=== PATIENT | male | born 1960 | race Caucasian/White ===

== ENCOUNTER 2016-10-22 08:02 | Day surgery (SDC) | payer OTHER ==
[2016-10-21 15:04] VITALS: BMI 28.5
[2016-10-22] MEDS ORDERED: PROPOFOL 20 ML ONE ×2 (08:36)
[2016-10-22 09:39] VITALS: TEMP 97.7
[2016-10-22 10:43] VITALS: BP 104/60; PULSE 54
--- NOTE | 2016-10-23 13:56 | PATH ---
Surgical Pathology Report Patient Name: LEATHA MAI [facility]. Rec. #: [id number] /Age/Gender: 1960 (Age: 56) / M Account: [id number] Location: U-ENDOSCOPY Taken: 10/22/2016 Received: 10/22/2016 Reported: 10/23/2016 Physicians: Bi Tracy M.D. Specimen(s) Received A: BX SIGMOID POLYPS B: BX RIGHT COLON POLYPS C: DESCENDING COLON POLYP Clinical History History of colon polyp Polyps, diverticulosis Final Diagnosis A. COLON, SIGMOID, BIOPSY: TUBULAR ADENOMA. B. COLON, RIGHT, BIOPSY: COLONIC MUCOSA WITH NO PATHOLOGIC CHANGES. NO ADENOMATOUS OR HYPERPLASTIC CHANGES IDENTIFIED. C. COLON, DESCENDING, BIOPSY: TUBULAR ADENOMA. Electronically Signed Dalton Mercado M.D. Gross Description A. Received in formalin, labeled "biopsy sigmoid polyps" are 5 carey, irregular portions of soft tissue ranging from 0.2-0.3 cm. in greatest dimension. The specimens are submitted in toto in one cassette. B. Received in formalin, labeled "biopsy right colon polyps" are 5 carey, irregular portions of soft tissue ranging from 0.1-0.3 cm. in greatest dimension. The specimens are submitted in toto in one cassette. C. Received in formalin, labeled "descending colon polyp" are 6 carey, irregular portions of soft tissue ranging from 0.1-0.3 cm. in greatest dimension. The specimens are submitted in toto in one cassette. DL/10/22/2016 saudi/10/22/2016
== END 2016-10-22 10:42 | disposition home or self-care (01) ==
LOC: JASU-ENDO 08:02
PROVIDERS: ATTEND Internal Medicine Gastroenterology
PROC: 0DBK8ZX Excision of Ascending Colon, Via Natural or Artificial Opening Endoscopic, Diagnostic (ICD-10-PCS; 2016-10-22)
PROC: 0DBN8ZX Excision of Sigmoid Colon, Via Natural or Artificial Opening Endoscopic, Diagnostic (ICD-10-PCS; 2016-10-22)
PROC: 0DBM8ZX Excision of Descending Colon, Via Natural or Artificial Opening Endoscopic, Diagnostic (ICD-10-PCS; principal; 2016-10-22 09:00)
DX: Z86.010 Personal history of colon polyps (principal); D12.4 Benign neoplasm of descending colon; D12.2 Benign neoplasm of ascending colon; D12.5 Benign neoplasm of sigmoid colon; K57.30 Diverticulosis of large intestine without perforation or abscess without bleeding
CPT/HCPCS: 88305-TC

== ENCOUNTER 2017-04-08 07:35 | Emergency (ER) | payer OTHER ==
[2017-04-08 07:46] VITALS: TEMP 97.8; BMI 29.0
[2017-04-08] MEDS ORDERED: diphenhydrAMINE HCL 25 MG CAPSULE (FP) PO ONE ×2 (08:47→09:20)
--- NOTE | 2017-04-08 08:57 | PDOC ---
History of Present Illness - General Chief Complaint: Pain Stated Complaint: SWELLING HAND, FOOT Time Seen by Provider: 04/08/17 08:34 History Source: Patient Exam Limitations: No Limitations - History of Present Illness Initial Comments: 04/08/17 09:13 56-year-old male presents the emergency room with complaints of generalized pruritus and arthralgias since yesterday. Patient also states yesterday had an episode of feeling as if his throat is closing and lost his voice presently. Patient states similar episodes over the past 5 years occurring around the same time each year. Patient states went to his PCP for the last 4 episodes who stated was likely due to an allergy. Patient denies any change in diet, medication use, recent travel, or change in topicals. Patient currently denies difficulty breathing, wheezing, chest pain, fever or chills. Patient states history of hypertension and dyslipidemia but recently was told not to take them by his pcp due to low bp and denies recent change in medication. Timing/Duration: 24 hours, constant Severity: moderate Associated Symptoms: denies: rash, shortness of breath, weakness Past History - Travel Traveled outside of the country in the last 30 days: No - Past Medical History Allergies/Adverse Reactions: Allergies Allergy/AdvReac Type Severity Reaction Status Date / Time No Known Allergies Allergy Verified 04/08/17 07:44 Home Medications: Ambulatory Orders Atorvastatin Ca [Lipitor] 10 mg PO HS 09/01/14 Metformin HCl [Glucophage -] 500 mg PO DAILY 09/01/14 Aspirin [Aspirin EC] 81 mg PO DAILY #0 09/15/14 Pantoprazole Sodium [Protonix] 40 mg PO DAILY #30 tablet. 04/08/17 Anemia: No Asthma: No Cancer: No Cardiac Disorders: No CVA: No COPD: No CHF: No Dementia: No Diabetes: Yes (NIDDM) GI Disorders: Yes (DIVERTICULOSIS, COLON POLYP, GERD) Disorders: No HTN: No Hypercholesterolemia: Yes Liver Disease: No Seizures: No Thyroid Disease: No - Surgical History Abdominal Surgery: No Appendectomy: No Cardiac Surgery: No Cholecystectomy: No Lung Surgery: Yes (KNIFE WOUND TO RT CHEST IN 1989) Neurologic Surgery: No Orthopedic Surgery: Yes (3 LT LEG SURGERIES WITH MUSCLE AND SKIN GRAFTING) - Family Disease History Family Disease History: Diabetes: Mother - Suicide/Smoking/Psychosocial Hx Smoking History: Never smoked Information on smoking cessation initiated: No Hx Alcohol Use: No Drug/Substance Use Hx: No Substance Use Type: None Hx Substance Use Treatment: No Patient Lives Alone: No Lives with/in: spouse/SO Review of Systems - Review of Systems Able to Perform ROS?: Yes Constitutional: No: Symptoms Reported HEENTM: Yes: Throat Swelling Respiratory: No: Symptoms reported Cardiac (ROS): No: Symptoms Reported ABD/GI: Yes: Indigestion. No: Symptoms Reported : No: Symptoms Reported Musculoskeletal: Yes: Joint Pain. No: Symptoms Reported, Back Pain, Joint Swelling, Muscle Pain, Muscle Weakness, Neck Pain Integumentary: Yes: Pruritus (generalized) Neurological: No: Symptoms reported Endocrine: No: Symptoms Reported Hematologic/Lymphatic: No: Symptoms Reported *Physical Exam - Vital Signs Last Vital Signs Temp Pulse Resp BP Pulse Ox 97.8 F 70 18 137/95 95 04/08/17 07:37 04/08/17 07:37 04/08/17 07:37 04/08/17 07:37 04/08/17 07:37 - Physical Exam General Appearance: Yes: Nourished, Appropriately Dressed. No: Apparent Distress HEENT: positive: Pharynx Normal (uvulA MIDLINE AND NONELONGATED) Neck: positive: Supple. negative: Lymphadenopathy (R), Lymphadenopathy (L) Respiratory/Chest: positive: Lungs Clear, Normal Breath Sounds. negative: Respiratory Distress, Accessory Muscle Use, Stridor, Wheezing Cardiovascular: positive: Regular Rhythm, Regular Rate. negative: Murmur Gastrointestinal/Abdominal: positive: Normal Bowel Sounds, Soft. negative: Distended, Tenderness, Mass Extremity: positive: Normal Capillary Refill Integumentary: positive: Normal Color, Warm, Moist Neurologic: positive: Normal Mood/Affect, Motor Strength 5/5 (ambulatory) Heart Score/ECG Review - ECG Intrepretation Rhythm: Regular Rhythm (normal sinus rhythm at 65. No acute findings.) ED Treatment Course - LABORATORY CBC & Chemistry Diagram: 04/08/17 08:55 04/08/17 08:55 - RADIOLOGY Radiology Studies Ordered: Category Date Time Status CHEST X-RAY PORTABLE* [RAD] Stat Radiology 04/08/17 08:46 Ordered Medical Decision Making - Medical Decision Making 04/08/17 09:06 Patient with generalized pruritus, arthralgia and brief episode of feeling as if his throat was closing last evening. He states symptoms began yesterday afternoon. It seems or generalized pruritus and arthralgia. Patient states took no medications decided come to the ER today. Patient on exam had no acute findings including rash, pharyngeal or pulmonary involvement. Questionable allergic etiology. Patient ordered for Benadryl, CBC, comp chest x-ray and will reevaluate shortly. If negative patient will be given a referral to maintenance shop clerk. Pt does also c/o burning pain to epigastric area radiating to throat x 3 months intermittently. Prtonix ivp ordered 04/08/17 10:33 Laboratory Tests 04/08/17 04/08/17 04/08/17 08:55 08:55 09:00 WBC 6.0 Hgb 14.8 Hct 45.1 Plt Count 212 Neutrophils % 73.5 Sodium 140 Potassium 4.5 Chloride 106 Anion Gap 8 BUN 15 Creatinine 0.9 Random Glucose 117 H Calcium 8.4 L Magnesium 2.0 Urine Protein Negative Urine Ketones Negative Urine Nitrite Negative Chest x-ray negative for acute findings. Patient states feeling better after receiving Motrin, protonix, Benadryl. Will discharge home , rx for protonix, with recommendations to follow-up with maintenance shop clerk. *DC/Admit/Observation/Transfer Diagnosis at time of Disposition: Generalized pruritus, Indigestion - Discharge Dispostion Disposition: HOME Condition at time of disposition: Improved - Prescriptions Prescriptions: Pantoprazole Sodium [Protonix] 40 mg PO DAILY #30 tablet.dr - Referrals Referrals: Lambert Miller MD [Primary Care Provider] - Hans Reyes MD [Staff Physician] - - Patient Instructions Printed Discharge Instructions: DI for Gastroesophageal Reflux Disease (GERD), DI for Itching Additional Instructions: At this time your labs, EKG and chest x-ray were negative for acute findings. I do want to to take Benadryl 25 mg as needed for itching and Motrin for any discomfort. I also do recommend you follow up with referred maintenance shop clerk. - Post Discharge Activity
[2017-04-08 09:23] LABS: BASO % 2.9 % (0-2.0); HEMATOCRIT 45.1 % (35.4-49); HEMOGLOBIN 14.8 GM/dL (11.7-16.9); LYMPH % 17.1 % (8-40); MCH 29.1 pg (25.7-33.7); MCHC 32.9 g/dl (32.0-35.9); MEAN CELL VOLUME 88.7 fl (80-96); MEAN PLT VOLUME 8.1 fl (7.5-11.1); MONO % 5.5 % (3.8-10.2); NEUT % 73.5 % (42.8-82.8); PLATELET COUNT 212 K/MM3 (134-434); RBC 5.09 M/mm3 (4.00-5.60); RDW 13.2 % (11.9-15.9)
[2017-04-08 09:39] LABS: ALBUMIN 3.6 g/dl (3.4-5.0); ALK PHOS 83 U/L (45-117); ANION GAP 8 (8-16); BILIRUBIN,TOTAL 0.7 mg/dL (0.2-1.0); BLOOD UREA NITROGEN 15 mg/dL (7-18); CALCIUM 8.4 mg/dL (8.5-10.1); CHLORIDE 106 mmol/L (98-107); CO2 26 mmol/L (21-32); CREATININE 0.9 mg/dL (0.7-1.3); GLUCOSE,RANDOM 117 mg/dL (74-106); POTASSIUM 4.5 mmol/L (3.5-5.1); SGOT/AST 25 U/L (15-37); SGPT/ALT 37 U/L (12-78); SODIUM 140 mmol/L (136-145); TOT PROT 6.7 g/dl (6.4-8.2)
[2017-04-08 09:51] LABS: URINE APPEARANCE CLEAR; URINE BILIRUBIN NEGATIVE (NEGATIVE); URINE BLOOD NEGATIVE (NEGATIVE); URINE COLOR LTYELLOW; URINE GLUCOSE (UA) NEGATIVE (NEGATIVE); URINE KETONE NEGATIVE (NEGATIVE); URINE LEUK ESTERASE NEGATIVE (NEGATIVE); URINE NITRITE NEGATIVE (NEGATIVE); URINE PROTEIN NEGATIVE (NEGATIVE); URINE UROBILINOGEN NEGATIVE mg/dL (0.2-1.0)
[2017-04-08] MEDS ORDERED: IBUPROFEN 600 MG TABLET (FP) PO ONE (09:55)
[2017-04-08] MEDS ORDERED: IBUPROFEN 400 MG TABLET (FP) PO ONE (10:06)
[2017-04-08 10:10] VITALS: BP 133/93; PULSE 79
--- NOTE | 2017-04-08 10:19 | PDOC ---
*Physical Exam - Vital Signs Last Vital Signs Temp Pulse Resp BP Pulse Ox 97.8 F 79 18 133/93 98 04/08/17 07:37 04/08/17 10:09 04/08/17 10:09 04/08/17 10:09 04/08/17 10:09 - Physical Exam Comments: 04/08/17 10:19 The patient was examined by [REAGAN Carmichael] under my direct supervision. I personally evaluated the patient. I concur with the above findings and the plan of care. ED Treatment Course - LABORATORY CBC & Chemistry Diagram: 04/08/17 08:55 04/08/17 08:55 - ADDITIONAL ORDERS Additional order review: Laboratory Results 04/08/17 08:55 Sodium 140 Potassium 4.5 Chloride 106 Carbon Dioxide 26 Anion Gap 8 BUN 15 Creatinine 0.9 Creat Clearance w eGFR > 60 Random Glucose 117 H Calcium 8.4 L Magnesium 2.0 Total Bilirubin 0.7 D AST 25 D ALT 37 Alkaline Phosphatase 83 Total Protein 6.7 Albumin 3.6 04/08/17 08:55 RBC 5.09 MCV 88.7 MCHC 32.9 RDW 13.2 MPV 8.1 Neutrophils % 73.5 Lymphocytes % 17.1 D Monocytes % 5.5 Eosinophils % 1.0 Basophils % 2.9 H D - Medications Given in the ED: ED Medications Discontinued Medications Generic Name Dose Route Start Last Admin Trade Name Freq PRN Reason Stop Dose Admin Diphenhydramine HCl 25 mg 04/08/17 08:47 04/08/17 09:24 Benadryl - PO 04/08/17 08:48 25 mg ONCE ONE Administration Ibuprofen 400 mg 04/08/17 09:55 04/08/17 10:09 Motrin - PO 04/08/17 09:56 400 mg ONCE ONE Administration *DC/Admit/Observation/Transfer - Referrals Referrals: Lambert Miller MD [Primary Care Provider] - - Patient Instructions - Post Discharge Activity
[2017-04-08] MEDS ORDERED: PANTOPRAZOLE SODIUM 40 MG in SODIUM CHLORIDE 100 ML IVPUSH ONE (10:41)
[2017-04-08] MEDS ORDERED: PANTOPRAZOLE SODIUM 40 MG VIAL ONE (10:46)
--- NOTE | 2017-04-08 16:53 | EKG ---
Test Reason : Blood Pressure : / mmHG Vent. Rate : 065 BPM Atrial Rate : 065 BPM P-R Int : 126 ms QRS Dur : 088 ms QT Int : 432 ms P-R-T Axes : 040 041 035 degrees QTc Int : 449 ms NORMAL SINUS RHYTHM NORMAL ECG WHEN COMPARED WITH ECG OF 31-OCT-2008 10:45, NO SIGNIFICANT CHANGE WAS FOUND Confirmed by UCHE RM MD ([id number]) on 04/08/2017 4:52:44 PM Referred By: Confirmed By:UCHE RM MD
== END 2017-04-08 11:04 | disposition home or self-care (01) ==
LOC: JER 07:35
PROC: 3E033GC Introduction of Other Therapeutic Substance into Peripheral Vein, Percutaneous Approach (ICD-10-PCS; principal; 2017-04-08)
DX: L29.9 Pruritus, unspecified (principal); K30 Functional dyspepsia
CPT/HCPCS: 36415; 71045-TC; 80053; 81003; 83735; 85025; 93005; 93010; 99283-25

== ENCOUNTER 2019-01-30 18:04 | Inpatient (IN) | payer OTHER ==
--- NOTE | 2019-01-30 18:32 | PDOC ---
History of Present Illness - General Chief Complaint: Lightheaded Stated Complaint: ABD PAIN W/ DIZZINESS X 5 DAYS Time Seen by Provider: 01/30/19 18:32 - History of Present Illness Initial Comments: 01/30/19 18:46 58 year old man with hx of HLD who presents with 5 days of intermittent epigastric pain radiating into the chest. The pain feels like pressure is is not exacerbated by lying back or eating. He has not taken anything for the pain. He saw his pcp 4 days ago who did labwork and cxr. He states his symptoms are associated with lightheadedness and some nausea. He has no other complaints. ROS GENERAL/CONSTITUTIONAL: No fever or chills. No weakness. HEAD, EYES, EARS, NOSE AND THROAT: No change in vision. No ear pain or discharge. No sore throat. CARDIOVASCULAR: + chest pain, No shortness of breath RESPIRATORY: No cough, wheezing, or hemoptysis. GASTROINTESTINAL: + nausea, No vomiting, diarrhea or constipation. GENITOURINARY: No dysuria, frequency, or change in urination. MUSCULOSKELETAL: No joint or muscle swelling or pain. No neck or back pain. SKIN: No rash PE GENERAL: Awake, alert, and fully oriented, in no acute distress HEAD: No signs of trauma, normocephalic, atraumatic EYES: EOMI, sclera anicteric, conjunctiva clear ENT: oropharynx clear without exudates. Moist mucosa NECK: Normal ROM, supple LUNGS: No distress, speaks full sentences, clear to auscultation bilaterally HEART: Regular rate and rhythm, normal S1 and S2, no murmurs, rubs or gallops, peripheral pulses normal and equal bilaterally. CHEST: pain is not reproducible on chest wall palpation ABDOMEN: Soft, nontender No guarding, no rebound. No masses EXTREMITIES : Normal inspection, Normal range of motion, no edema. No clubbing or cyanosis. NEUROLOGICAL: Cranial nerves II through XII grossly intact. Normal speech, no focal sensorimotor deficits SKIN: Warm, Dry, normal turgor, no rashes or lesions noted MDM DDX including but not limited to: GERD vs msk r/o acs ED Course: ekg; nsr labs wnl ct ap discussed with radiologist concern over food in gastrum as patient last meal > 8 hours ago per radiologist apparent stricture around the duodenum with compression Dr. Lantin consulted, recommend admit, npo Case dsicussed with Dr. Zhu, will give protonix and admit consult placed to Dr. adeline Meade, PGY2 Emergency Medicine Past History - Past Medical History Allergies/Adverse Reactions: Allergies Allergy/AdvReac Type Severity Reaction Status Date / Time No Known Allergies Allergy Verified 01/30/19 18:10 Home Medications: Ambulatory Orders Atorvastatin Ca [Lipitor] 20 mg PO HS 09/01/14 metFORMIN HCL [Glucophage -] 500 mg PO DAILY 09/01/14 Aspirin [Aspirin EC] 81 mg PO DAILY #0 09/15/14 Pantoprazole Sodium [Protonix] 40 mg PO DAILY #30 tablet. 04/08/17 Anemia: No Asthma: No Cancer: No Cardiac Disorders: No CVA: No COPD: No CHF: No Dementia: No Diabetes: Yes (NIDDM) GI Disorders: Yes (DIVERTICULOSIS, COLON POLYP, GERD) Disorders: No HTN: No Hypercholesterolemia: Yes Liver Disease: No Seizures: No Thyroid Disease: No - Surgical History Abdominal Surgery: No Appendectomy: No Cardiac Surgery: No Cholecystectomy: No Lung Surgery: Yes (KNIFE WOUND TO RT CHEST IN 1989) Neurologic Surgery: No Orthopedic Surgery: Yes (3 LT LEG SURGERIES WITH MUSCLE AND SKIN GRAFTING) - Psycho Social/Smoking Cessation Hx Smoking History: Never smoked Hx Alcohol Use: No Drug/Substance Use Hx: No Substance Use Type: None Hx Substance Use Treatment: No *Physical Exam - Vital Signs Last Vital Signs Temp Pulse Resp BP Pulse Ox 97.4 F L 82 18 140/86 97 01/30/19 18:07 01/30/19 18:07 01/30/19 18:07 01/30/19 18:07 01/30/19 18:07 ED Treatment Course - LABORATORY CBC & Chemistry Diagram: 01/30/19 18:50 01/30/19 18:50 Discharge - Discharge Information Problems reviewed: Yes Clinical Impression/Diagnosis: Duodenal stricture Condition: Stable Disposition: HOME - Admission Yes - Follow up/Referral Referrals: Lambert Miller MD [Primary Care Provider] - - Patient Discharge Instructions - Post Discharge Activity
[2019-01-30] MEDS ORDERED: FAMOTIDINE 20 MG/50 ML IVPB 20 MG/50 ML MG IVPB ONE ×2 (18:35→18:56)
[2019-01-30] MEDS ORDERED: MAG HYDROX/AL HYDROX/SIMETH -MYLANTA- ORAL SUSPENSION PO ONE (18:35)
[2019-01-30] MEDS ORDERED: ACETAMINOPHEN 1000 MG/100 ML VIAL (NON FORMULARY) IVPB ONE (18:50)
[2019-01-30] MEDS ORDERED: ACETAMINOPHEN INJECTION 100 ML IVPB ONE (18:55)
[2019-01-30] MEDS ORDERED: MAG HYDROX/AL HYDROX/SIMETH 30 ML UNIT-DOSE CUP ONE (18:56)
[2019-01-30] MEDS ORDERED: SODIUM CHLORIDE 1,000 ML IV SCH (19:00)
[2019-01-30 19:16] LABS: BASO % 0.5 % (0-2.0); EOS % 0.8 % (0-4.5); HEMATOCRIT 45.4 % (35.4-49); HEMOGLOBIN 15.4 GM/dL (11.7-16.9); LYMPH % 23.2 % (8-40); MCH 29.5 pg (25.7-33.7); MCHC 33.9 g/dl (32.0-35.9); MEAN CELL VOLUME 87.1 fl (80-96); MEAN PLT VOLUME 8.4 fl (7.5-11.1); NEUT % 68.5 % (42.8-82.8); PLATELET COUNT 215 K/MM3 (134-434); RBC 5.21 M/mm3 (4.00-5.60); RDW 14.1 % (11.9-15.9); WHITE BLOOD COUNT 8.1 K/mm3 (4.0-10.0)
--- NOTE | 2019-01-30 19:18 | PDOC ---
Attending Attestation - Resident Resident Name: Citlalli Meade - ED Attending Attestation I have performed the following: I have examined & evaluated the patient, The case was reviewed & discussed with the resident, I agree w/resident's findings & plan - HPI HPI: 01/30/19 21:50 Pt comes with epigastric pain ongoing x 5 days. He has no chest pain and no SOB and no diarrhea or vomiting. Today all he had a was a coffee in the AM and then fried, chicken and rice in the afternoon. Pt has no fever and no chills. He states that he moves bowels 1 or 2 times daily. Pt has no dysuria - Physicial Exam PE: 01/30/19 21:51 Pt has distended abdomen and gassy tympanitic abd; minimal diffuse tenderness in the epigastric area; no rebound. Heart and lung exam normal Pt has no flank pain and he appears comfortable at rest. - Medical Decision Making 01/30/19 19:27 CBC is normal. 01/30/19 20:31 chem and lipase are normal 01/30/19 20:40 CXR normal Pt will go to CT scan 01/30/19 21:53 CT scan done; awaiting read. Pt has a lot of food in the abd and duodenum; seems to have duodenal constriction. 01/30/19 23:10 Patient Name: LEATHA MAI THIS IS A PRELIMINARY REPORT FROM [facility] DATE OF SERVICE: 2019-01-30 21:08:23 IMAGES: 483 EXAM: ABDOMEN \T\ PELVIS CT WITH CONTR HISTORY: Epigastric pain COMPARISON: None. FINDINGS: There is dependent atelectasis at the lung bases Right middle lobe scarring Fatty changes of the liver Small exophytic right renal cyst and subcentimeter bilateral renal cortical hypodensities which are likely cysts although too small to characterize Cortical scarring in the lower pole of the left kidney The upper abdominal visceral organs are otherwise unremarkable The stomach is moderately distended with debris There is no bowel distention or appreciable thickening. The appendix is normal Moderate fecal retention in the colon Enlarged prostate Left inguinal hernia containing fat No intra-abdominal free air, free fluid or loculated collections 01/30/19 23:20 Pt has food in the abdomen several hours after eating and collapsed distal duodenum; as per radiology he doesn't have a normal duodenal bulb. Pt likely has a stricture and he will require admission. 01/30/19 23:27 Dr. Umana will see the patient in the AM; he is also requesting surgery on board. Heart Score/ECG Review - ECG Intrepretation Rhythm: Regular Rhythm - Godfrey Godfrey: Normal - P and ID Prominent R with upright T in V1 (true posterior [place]): No Delta Wave(s) Present: No WPW: No - QRS Poor R Wave Progression: No Q Wave Present: No - ST and T Early Repolarization: No Non Specific ST-T Wave changes: No - ECG Impressions Normal ECG: Yes Non-specific ST Elevation: No Ischemic Changes: No Bradycardia: No Torsades maria de jesus Pointes: No WPW: No
[2019-01-30 19:32] LABS: ACTIVATED PTT 34.3 SECONDS (25.2-36.5)
[2019-01-30 19:40] LABS: N-TERMINAL BNP 109.6 pg/ml (5-125)
[2019-01-30 19:45] LABS: ALBUMIN 4.2 g/dl (3.4-5.0); ALK PHOS 78 U/L (45-117); ANION GAP 7 MMOL/L (8-16); BILIRUBIN,TOTAL 1.1 mg/dL (0.2-1); BLOOD UREA NITROGEN 13.5 mg/dL (7-18); CALCIUM 8.9 mg/dL (8.5-10.1); CHLORIDE 104 mmol/L (98-107); CO2 28 mmol/L (21-32); CREATININE 1.2 mg/dL (0.55-1.3); GLUCOSE,RANDOM 127 mg/dL (74-106); POTASSIUM 4.2 mmol/L (3.5-5.1); SGOT/AST 30 U/L (15-37); SGPT/ALT 29 U/L (13-61); SODIUM 139 mmol/L (136-145)
[2019-01-30 19:55] LABS: INR 1.06 (0.83-1.09); PROTHROMBIN TIME (PATIENT) 12.5 SEC (9.7-13.0)
[2019-01-30] MEDS ORDERED: POLYETHYLENE GLYCOL 3350 119 GM BTL PO ONE (19:57)
[2019-01-30] MEDS ORDERED: DICYCLOMINE HCL 20 MG TABLET PO ONE (20:32)
[2019-01-30 20:42] LABS: URINE APPEARANCE CLEAR; URINE BILIRUBIN NEGATIVE (NEGATIVE); URINE COLOR YELLOW; URINE GLUCOSE (UA) NEGATIVE (NEGATIVE); URINE KETONE NEGATIVE (NEGATIVE); URINE LEUK ESTERASE NEGATIVE (NEGATIVE); URINE NITRITE NEGATIVE (NEGATIVE); URINE PROTEIN NEGATIVE (NEGATIVE)
[2019-01-30] MEDS ORDERED: DICYCLOMINE HCL 10 MG CAPSULE ONE (20:46)
[2019-01-30] MEDS ORDERED: PANTOPRAZOLE SODIUM 80 MG in SODIUM CHLORIDE 100 ML IVPB SCH (23:45)
[2019-01-30] MEDS ORDERED: PANTOPRAZOLE SODIUM 40 MG VIAL ONE (23:55)
[2019-01-31] MEDS: SODIUM CHLORIDE 1,000 ML IV SCH ×3 (00:13→23:46)
[2019-01-31 02:16] VITALS: BMI 21.3
[2019-01-31] MEDS ORDERED: PNEUMOC 13-VAL CONJ-DIP CRM/PF 0.5 ML DISP.SYRIN IM ONE (02:22)
[2019-01-31] MEDS ORDERED: PANTOPRAZOLE SODIUM 160 MG in SODIUM CHLORIDE 290 ML IVPB SCH (10:00)
[2019-01-31] MEDS ORDERED: FLU VACCINE QUAD 60 MCG/0.5 ML (MDV 19-20) IM ONE (10:00)
--- NOTE | 2019-01-31 11:56 | CON.GI ---
Consult Consult Specialty:: GI Referred by:: Dr. Meade Reason for Consultation:: Abdominal pain with abnormal CT scan of abdomen. - History of Present Illness Chief Complaint: Abdominal discomfort. History of Present Illness: Patient (with /son translating) reports 3-4 days of abdominal discomfort characterized as "tightening) to mid/upper abdomen with some radiation to the chest. No nausea or vomiting. Came to ER at suggestion of family. No associated symptoms. No obvious relieving or exacerbating features. No increase or change in belching or BM. No blood in stool. No food getting caught. No NSAIDs (asked specifically about ibuprofen, Advil, Alelve, naproxen) . Takes daily ASA 81 mg/ No family history of GI illness. Report to have duodenal stricture on CT scan of abdomen. Images reviewed and possible cutoff noted in D2/3. Stomach filled with food/gas. See reprot. - History Source History Provided By: Patient, Family Member Limitations to Obtaining History: Language Barrier - Alcohol/Substance Use Hx Alcohol Use: No - Smoking History Smoking history: Never smoked Have you smoked in the past 12 months: No Home Medications - Allergies Allergies/Adverse Reactions: Allergies Allergy/AdvReac Type Severity Reaction Status Date / Time No Known Allergies Allergy Verified 01/30/19 18:10 - Home Medications Home Medications: Ambulatory Orders Atorvastatin Ca [Lipitor] 20 mg PO HS 09/01/14 metFORMIN HCL [Glucophage -] 500 mg PO DAILY 09/01/14 Aspirin [Aspirin EC] 81 mg PO DAILY #0 09/15/14 Pantoprazole Sodium [Protonix] 40 mg PO DAILY #30 tablet. 04/08/17 Family Medical History Family Hx Gastrointestinal Disorder: Mother Review of Systems - Review of Systems Constitutional: denies: Chills, Fever, Loss of Appetite, Unintentional Wgt. Loss Gastrointestinal: reports: Abdominal Pain, Bloating. denies: Constipation, Diarrhea, Dysphagia, Indigestion, Melena, Nausea, Rectal Bleeding, Vomiting, Vomiting Blood Physical Exam-GI Vital Signs: Vital Signs Temperature 98.1 F 01/31/19 02:11 Pulse Rate 53 L 01/31/19 02:11 Respiratory Rate 18 01/31/19 02:11 Blood Pressure 156/88 01/31/19 02:11 O2 Sat by Pulse Oximetry (%) 98 01/31/19 02:22 Constitutional: Yes: Well Nourished, No Distress Gastrointestinal Inspection: Yes: WNL ...Auscultate: Yes: Normoactive Bowel Sounds ...Palpate: No: Hepatomegaly, Mass, Splenomegaly, Tenderness, Tenderness, Epigastium, Tenderness, Rebound ...Percussion: No: Dullness Labs: CBC, BMP 01/30/19 18:50 01/30/19 18:50 INR, PTT INR 1.06 (0.83-1.09) 01/30/19 19:05 Imaging - Results Cat Scan: Report Reviewed (Possile duodenal stricture.), Image Reviewed Problem List - Problems (1) Duodenal stricture Assessment/Plan: Duodenal stricture, though no mention of it in official report. Favor EGD during hospitalization. Clear liquids for remainder of day. NPO after midnight tonight. Problems reviewed: Yes Code(s): K31.5 - OBSTRUCTION OF DUODENUM
--- NOTE | 2019-01-31 13:23 | PN ---
Progress Note (short form) - Note Progress Note: GI Procedure Note: Please see EGD report. A medium sized antral ulcer in the midst of antral gastritis was found. No obstruction was see. Findings were discussed with the patient , his and son. Will give PPI drip. Advance diet as tolerated. Problem List - Problems (1) Epigastric abdominal pain Code(s): R10.13 - EPIGASTRIC PAIN (2) Gastric ulcer Code(s): K25.9 - GASTRIC ULCER, UNSP ACUTE OR CHRONIC, W/O HEMOR OR PERF (3) Gastritis Code(s): K29.70 - GASTRITIS, UNSPECIFIED, WITHOUT BLEEDING
[2019-01-31] MEDS ORDERED: PANTOPRAZOLE SODIUM 160 MG in SODIUM CHLORIDE 250 ML IVPB SCH (13:30)
[2019-01-31] MEDS: PANTOPRAZOLE SODIUM 160 MG in SODIUM CHLORIDE 290 ML IVPB SCH (14:11)
[2019-01-31] MEDS: MAG HYDROX/AL HYDROX/SIMETH 30 ML UNIT-DOSE CUP PO SCH ×3 (14:34→23:47)
--- NOTE | 2019-01-31 15:42 | CONSULT ---
- Consultation REQUESTING PROVIDER: CONSULT REQUEST: We have been asked to surgically evaluate this patient for duodenal stricture. PCP:Lambert Miller HISTORY OF PRESENT ILLNESS: 58 y/o M w/ PMHx hld admitted with abdominal pain. Pt reports 5 day h/o epigastric pain which began shortly after waking. Pt describes pain as "tightening" in the mid/upper abdomen with some radiation to the chest. Denies worsening or alleviating factors, including food. Denies n/v/d. Reports normal BM yesterday, denies melena. Denies dysphagia or NSAID use. Has no h/o abdominal surgeries, gastroperesis, etc. Has regular colonoscopies, no h/o EGD prior to today. Takes daily ASA 81 mg daily. PMHx: as above PSHx: denies Home Medications Medication Instructions Recorded Atorvastatin Ca [Lipitor] 20 mg PO HS 09/01/14 metFORMIN HCL [Glucophage -] 500 mg PO DAILY 09/01/14 Aspirin [Aspirin EC] 81 mg PO DAILY #0 09/15/14 Pantoprazole Sodium [Protonix] 40 mg PO DAILY #30 tablet. 04/08/17 Allergies Allergy/AdvReac Type Severity Reaction Status Date / Time No Known Allergies Allergy Verified 01/30/19 18:10 REVIEW OF SYSTEMS: CONSTITUTIONAL: Absent: fever, chills CARDIOVASCULAR: Absent: chest pain RESPIRATORY: Absent: cough, shortness of breath GASTROINTESTINAL: +abdominal pain, (-)abdominal distension, nausea, vomiting, diarrhea, constipation, melena, hematochezia PHYSICAL EXAM: GENERAL: Awake, alert, and fully oriented, in no acute distress. HEAD: Normal with no signs of trauma. ABDOMEN: Soft, nontender, not distended, normoactive bowel sounds, no guarding, no rebound. Vital Signs Temperature 97.4 F L 01/31/19 13:44 Pulse Rate 68 01/31/19 13:44 Respiratory Rate 18 01/31/19 13:44 Blood Pressure 129/72 01/31/19 13:44 O2 Sat by Pulse Oximetry (%) 98 01/31/19 13:44 Lab Results WBC 8.1 K/mm3 (4.0-10.0) 01/30/19 18:50 RBC 5.21 M/mm3 (4.00-5.60) 01/30/19 18:50 Hgb 15.4 GM/dL (11.7-16.9) 01/30/19 18:50 Hct 45.4 % (35.4-49) 01/30/19 18:50 MCV 87.1 fl (80-96) 01/30/19 18:50 MCHC 33.9 g/dl (32.0-35.9) 01/30/19 18:50 RDW 14.1 % (11.9-15.9) 01/30/19 18:50 Plt Count 215 K/MM3 (134-434) 01/30/19 18:50 Sodium 139 mmol/L (136-145) 01/30/19 18:50 Potassium 4.2 mmol/L (3.5-5.1) 01/30/19 18:50 Chloride 104 mmol/L (98-107) 01/30/19 18:50 Carbon Dioxide 28 mmol/L (21-32) 01/30/19 18:50 Anion Gap 7 MMOL/L (8-16) L 01/30/19 18:50 BUN 13.5 mg/dL (7-18) 01/30/19 18:50 Creatinine 1.2 mg/dL (0.55-1.3) 01/30/19 18:50 Random Glucose 127 mg/dL (74-106) H 01/30/19 18:50 Calcium 8.9 mg/dL (8.5-10.1) 01/30/19 18:50 INR 1.06 (0.83-1.09) 01/30/19 19:05 A/P: 58 y/o M w/ PMHx hld admitted with abdominal pain. Surgery consulted for concern of duodenal stricture. CT a/p nighthawk read with concern for duodenal stricture, no stricture mentioned on final ready. Pt s/p egd today with Gi revealing medium sized antral ulcer in the midst of antral gastritis. No obstruction -No acute surgical intervention -Source of pain likely from ulcer, no duodenal stricture identified on CT or EGD -Reconsult prn -Management per GI d/w attending Dr Frausto
--- NOTE | 2019-01-31 15:49 | EKG ---
Test Reason : Blood Pressure : / mmHG Vent. Rate : 072 BPM Atrial Rate : 072 BPM P-R Int : 156 ms QRS Dur : 094 ms QT Int : 398 ms P-R-T Axes : 056 050 041 degrees QTc Int : 435 ms NORMAL SINUS RHYTHM NORMAL ECG WHEN COMPARED WITH ECG OF 08-APR-2017 08:04, NO SIGNIFICANT CHANGE WAS FOUND Confirmed by TRIP VILLA MD ([id number]) on 01/31/2019 3:49:21 PM Referred By: Confirmed By:TRIP VILLA MD
--- NOTE | 2019-01-31 16:41 | HP ---
Admitting History and Physical - Primary Care Physician PCP: Lambert Miller - Admission Chief Complaint: abd pain History of Present Illness: 58 YO M (b. [place]) Hx of DM; lipidemia & dyspepsia arrived to ER with worsening mid abd pain which began 4-5 days ago, but got worse when he started taking Naprosyn (for his cervical arthritis) in the last several days. He denies n-v, diarrhea, sweats, fever, CP, SOB. He denies recent use of EtoH, smoking, stress or ingesting foods causing GI upset. He underwent EGD shortly after admission and was found to have Gastritis and antral ulcer. He denies any pain at this time. History Source: Patient Limitations to Obtaining History: No Limitations - Past Medical History Cardiovascular: Yes: Hyperlipdemia Musculoskeletal: Yes: Osteoarthritis Endocrine: Yes: Diabetes Mellitus - Past Surgical History Additional Past Surgical History: surgery for traumatic injury of the LLE over 15 yrs ago. - Smoking History Smoking history: Never smoked Have you smoked in the past 12 months: No - Alcohol/Substance Use Hx Alcohol Use: No History of Substance Use: reports: None - Social History Usual Living Arrangement: Yes: With Spouse ADL: Independent Occupation: construction--disabled History of Recent Travel: No Home Medications - Allergies Allergies/Adverse Reactions: Allergies Allergy/AdvReac Type Severity Reaction Status Date / Time No Known Allergies Allergy Verified 01/30/19 18:10 - Home Medications Home Medications: Ambulatory Orders Atorvastatin Ca [Lipitor] 20 mg PO HS 09/01/14 metFORMIN HCL [Glucophage -] 500 mg PO DAILY 09/01/14 Aspirin [Aspirin EC] 81 mg PO DAILY #0 09/15/14 Pantoprazole Sodium [Protonix] 40 mg PO DAILY #30 tablet. 04/08/17 Family Medical History Family History: Unremarkable Review of Systems - Review of Systems Gastrointestinal: reports: Abdominal Pain Physical Examination Vital Signs: Vital Signs Temperature 97.4 F L 01/31/19 13:44 Pulse Rate 68 01/31/19 13:44 Respiratory Rate 18 01/31/19 14:00 Blood Pressure 129/72 01/31/19 13:44 O2 Sat by Pulse Oximetry (%) 98 01/31/19 13:44 Constitutional: Yes: Well Nourished, No Distress, Calm Eyes: Yes: Conjunctiva Clear, EOM Intact HENT: Yes: WNL Neck: Yes: WNL Cardiovascular: Yes: Regular Rate and Rhythm Respiratory: Yes: CTA Bilaterally Gastrointestinal: Yes: Soft ...Rectal Exam: Yes: Deferred Musculoskeletal: Yes: WNL Extremities: Yes: Other (High ankle deformity with overlying surgical healed incision) Edema: No Peripheral Pulses WNL: Yes Integumentary: Yes: WNL Neurological: Yes: WNL ...Motor Strength: WNL Psychiatric: Yes: WNL Labs: CBC, BMP 01/30/19 18:50 01/30/19 18:50 Laboratory Tests 01/30/19 01/30/19 01/30/19 18:50 18:50 18:50 WBC 8.1 RBC 5.21 Hgb 15.4 Hct 45.4 MCV 87.1 MCH 29.5 MCHC 33.9 RDW 14.1 Plt Count 215 MPV 8.4 Absolute Neuts (auto) 5.5 Neutrophils % 68.5 Lymphocytes % 23.2 D Monocytes % 7.0 Eosinophils % 0.8 Basophils % 0.5 Nucleated RBC % 0 PT with INR INR PTT (Actin FS) Sodium 139 Potassium 4.2 Chloride 104 Carbon Dioxide 28 Anion Gap 7 L BUN 13.5 Creatinine 1.2 Est GFR (CKD-EPI)AfAm 75.72 Est GFR (CKD-EPI)NonAf 65.33 Random Glucose 127 H Calcium 8.9 Total Bilirubin 1.1 H AST 30 ALT 29 Alkaline Phosphatase 78 Troponin I < 0.02 B-Natriuretic Peptide 109.6 Total Protein 7.0 Albumin 4.2 Lipase 86 Urine Color Urine Appearance Urine pH Ur Specific Nakina Urine Protein Urine Glucose (UA) Urine Ketones Urine Blood Urine Nitrite Urine Bilirubin Urine Urobilinogen Ur Leukocyte Esterase 01/30/19 01/30/19 19:05 20:31 WBC RBC Hgb Hct MCV MCH MCHC RDW Plt Count MPV Absolute Neuts (auto) Neutrophils % Lymphocytes % Monocytes % Eosinophils % Basophils % Nucleated RBC % PT with INR 12.50 INR 1.06 PTT (Actin FS) 34.3 Sodium Potassium Chloride Carbon Dioxide Anion Gap BUN Creatinine Est GFR (CKD-EPI)AfAm Est GFR (CKD-EPI)NonAf Random Glucose Calcium Total Bilirubin AST ALT Alkaline Phosphatase Troponin I B-Natriuretic Peptide Total Protein Albumin Lipase Urine Color Yellow Urine Appearance Clear Urine pH 6.0 Ur Specific Nakina 1.020 Urine Protein Negative Urine Glucose (UA) Negative Urine Ketones Negative Urine Blood Negative Urine Nitrite Negative Urine Bilirubin Negative Urine Urobilinogen 1.0 Ur Leukocyte Esterase Negative Imaging - Results Chest X-ray: Report Reviewed Cat Scan: Report Reviewed EKG: Report Reviewed Problem List - Problems (1) Gastric ulcer Assessment/Plan: as the cause for his abd pain; discovered by EGD; on IV PPI Code(s): K25.9 - GASTRIC ULCER, UNSP ACUTE OR CHRONIC, W/O HEMOR OR PERF Qualifiers: Gastric ulcer chronicity: unspecified ulcer chronicity (2) T2DM (type 2 diabetes mellitus) Assessment/Plan: monitored by his PCP; had been on Metformin Code(s): E11.9 - TYPE 2 DIABETES MELLITUS WITHOUT COMPLICATIONS Qualifiers: Diabetes mellitus jail insulin use: without jail use (3) Lipid disorder Assessment/Plan: managed with statin Code(s): E78.9 - DISORDER OF LIPOPROTEIN METABOLISM, UNSPECIFIED (4) History of injury of muscle Assessment/Plan: of the LLE; resulting in disability many yrs ago Code(s): Z87.828 - PERSONAL HISTORY OF OTH (HEALED) PHYSICAL INJURY AND TRAUMA Assessment/Plan 58 YO M with worsening abd pain who underwent EGD found to have Gastritis and non bleeding ulcer Dz; Bx taken by GI and now on IV PPI ~~~~~~~~~~~~~~~~~~ Dr Presley
[2019-02-01] MEDS: MAG HYDROX/AL HYDROX/SIMETH 30 ML UNIT-DOSE CUP PO SCH ×4 (05:17→23:55)
[2019-02-01] MEDS: SODIUM CHLORIDE 1,000 ML IV SCH (05:34)
[2019-02-01 08:25] LABS: BLOOD UREA NITROGEN 10.2 mg/dL (7-18); CALCIUM 8.3 mg/dL (8.5-10.1); POTASSIUM 3.9 mmol/L (3.5-5.1)
[2019-02-01] MEDS: PANTOPRAZOLE SODIUM 160 MG in SODIUM CHLORIDE 290 ML IVPB SCH ×2 (08:51→08:53)
[2019-02-01 12:29] LABS: BASO % 0.9 % (0-2.0); EOS % 2.7 % (0-4.5); HEMOGLOBIN 15.3 GM/dL (11.7-16.9); LYMPH % 21.3 % (8-40); MCH 29.6 pg (25.7-33.7); MCHC 33.9 g/dl (32.0-35.9); MEAN CELL VOLUME 87.2 fl (80-96); MEAN PLT VOLUME 7.7 fl (7.5-11.1); MONO % 7.2 % (3.8-10.2); NEUT % 67.9 % (42.8-82.8); PLATELET COUNT 171 K/MM3 (134-434); RBC 5.16 M/mm3 (4.00-5.60); RDW 13.8 % (11.9-15.9); WHITE BLOOD COUNT 6.3 K/mm3 (4.0-10.0)
--- NOTE | 2019-02-01 15:35 | PN.GI ---
GI Progress Note Subjective: GI Note: Pain is under control with IV PPI. Tolerated a soft lunch. Had a brown BM. No bleeding - Objective Vital Signs: Vital Signs Temperature 98.0 F 02/01/19 14:03 Pulse Rate 67 02/01/19 14:03 Respiratory Rate 20 02/01/19 10:00 Blood Pressure 135/71 02/01/19 14:03 O2 Sat by Pulse Oximetry (%) 97 02/01/19 09:00 Laboratory Tests 01/30/19 01/30/19 01/31/19 18:50 18:50 01:11 WBC Hgb 15.4 Anion Gap Lipase 86 CA 19-9 Antigen 1 02/01/19 02/01/19 06:42 12:00 WBC 6.3 Hgb 15.3 Anion Gap 7 L Lipase CA 19-9 Antigen Constitutional: Calm Gastrointestinal Inspection: Yes: Distention ...Auscultate: Yes: Normoactive Bowel Sounds ...Palpate: Yes: Soft, Other (nontender) Labs: CBC, BMP 02/01/19 12:00 02/01/19 06:42 INR, PTT INR 1.06 (0.83-1.09) 01/30/19 19:05 Assessment/Plan Impression: - Pain due to gastric ulcer. Biopsies pending - GERD - Personal h/o colon adenomas - Diverticulosis Plan: -- Continue soft diet -- D/C PPI drip -- If pain free and tolerating diet can discharge in the AM. Again discussed the need to followup in my office to arrange a repeat EGD to assure ulcer healing and to exclude a malignant ulcer. Discussed with Dr Presley Problem List - Problems (1) Epigastric abdominal pain Code(s): R10.13 - EPIGASTRIC PAIN (2) Gastric ulcer Code(s): K25.9 - GASTRIC ULCER, UNSP ACUTE OR CHRONIC, W/O HEMOR OR PERF Qualifiers: Gastric ulcer chronicity: unspecified ulcer chronicity (3) Gastritis Code(s): K29.70 - GASTRITIS, UNSPECIFIED, WITHOUT BLEEDING (4) Colon adenomas Code(s): D12.6 - BENIGN NEOPLASM OF COLON, UNSPECIFIED (5) Diverticulosis Code(s): K57.90 - DVRTCLOS OF INTEST, PART UNSP, W/O PERF OR ABSCESS W/O BLEED
--- NOTE | 2019-02-01 15:40 | PN ---
Progress Note (short form) - Note Progress Note: Current Medications Al Hydroxide/Mg Hydroxide (Mylanta Oral Suspension -) 30 ml PO Q6HPO [facility] Last Admin: 02/01/19 12:06 Dose: 30 ml Sodium Chloride (Normal Saline -) 1,000 mls @ 125 mls/hr IV ASDIR [facility] Last Admin: 02/01/19 05:34 Dose: 125 mls/hr Pantoprazole Sodium 160 mg/ (Sodium Chloride) 290 mls @ 14.5 mls/hr IVPB Q20H [facility] Last Admin: 02/01/19 08:53 Dose: Not Given Laboratory Results - last 24 hr 01/31/19 02/01/19 02/01/19 01:11 06:42 06:42 WBC RBC Hgb Hct MCV MCH MCHC RDW Plt Count MPV Absolute Neuts (auto) Neutrophils % Lymphocytes % Monocytes % Eosinophils % Basophils % Nucleated RBC % Sodium 142 Potassium 3.9 Chloride 107 Carbon Dioxide 28 Anion Gap 7 L BUN 10.2 Creatinine 1.0 Est GFR (CKD-EPI)AfAm 94.39 Est GFR (CKD-EPI)NonAf 81.44 Random Glucose 101 Hemoglobin A1c % 6.1 Calcium 8.3 L CA 19-9 Antigen 1 02/01/19 12:00 WBC 6.3 RBC 5.16 Hgb 15.3 Hct 45.0 MCV 87.2 MCH 29.6 MCHC 33.9 RDW 13.8 Plt Count 171 D MPV 7.7 Absolute Neuts (auto) 4.3 Neutrophils % 67.9 Lymphocytes % 21.3 Monocytes % 7.2 Eosinophils % 2.7 D Basophils % 0.9 Nucleated RBC % 0 Sodium Potassium Chloride Carbon Dioxide Anion Gap BUN Creatinine Est GFR (CKD-EPI)AfAm Est GFR (CKD-EPI)NonAf Random Glucose Hemoglobin A1c % Calcium CA 19-9 Antigen Vital Signs Temperature 98.0 F 02/01/19 14:03 Pulse Rate 67 02/01/19 14:03 Respiratory Rate 20 02/01/19 10:00 Blood Pressure 135/71 02/01/19 14:03 O2 Sat by Pulse Oximetry (%) 97 02/01/19 09:00 CC: mild epigastric pains ``````````````````````` skin--NL color; IV site Okay eyes--anicteric; eomi lungs--clear heart--RR abd--soft neuro--alert; coherent no focal deficits ```````````````````````````````` Summ > Gastric ulcer & gastritis--on IV PPI; H/H okay; will continue on PO PPI; counseled on diet; will need f/u EGD in 2-3 months > DM--BS in low 100's; a1c at 6.1 ```````````````````````````` Dr Presley Problem List - Problems (1) Gastric ulcer Code(s): K25.9 - GASTRIC ULCER, UNSP ACUTE OR CHRONIC, W/O HEMOR OR PERF Qualifiers: Gastric ulcer chronicity: unspecified ulcer chronicity (2) T2DM (type 2 diabetes mellitus) Code(s): E11.9 - TYPE 2 DIABETES MELLITUS WITHOUT COMPLICATIONS Qualifiers: Diabetes mellitus fdc insulin use: without bulk gas specialist use (3) Lipid disorder Code(s): E78.9 - DISORDER OF LIPOPROTEIN METABOLISM, UNSPECIFIED (4) History of injury of muscle Code(s): Z87.828 - PERSONAL HISTORY OF OTH (HEALED) PHYSICAL INJURY AND TRAUMA
[2019-02-02] MEDS: PANTOPRAZOLE SODIUM 160 MG in SODIUM CHLORIDE 290 ML IVPB SCH ×2 (03:49→05:47)
[2019-02-02] MEDS: MAG HYDROX/AL HYDROX/SIMETH 30 ML UNIT-DOSE CUP PO SCH ×2 (05:49→11:56)
[2019-02-02] MEDS ORDERED: FLU VACCINE QUAD 60 MCG/0.5 ML (MDV 19-20) IM ONE (10:00)
[2019-02-02] MEDS ORDERED: PANTOPRAZOLE 40 MG TABLET (FP) PO SCH (10:30)
--- NOTE | 2019-02-02 10:37 | DS ---
Physical Examination Vital Signs: Vital Signs Temperature 98.4 F 02/02/19 06:00 Pulse Rate 71 02/02/19 06:00 Respiratory Rate 18 02/02/19 06:00 Blood Pressure 140/74 02/02/19 06:00 O2 Sat by Pulse Oximetry (%) 98 02/01/19 21:00 Constitutional: Yes: Well Nourished, No Distress, Calm Eyes: Yes: Conjunctiva Clear Neck: Yes: Supple Cardiovascular: Yes: Regular Rate and Rhythm Respiratory: Yes: Regular Gastrointestinal: Yes: WNL Musculoskeletal: Yes: WNL Edema: No Neurological: Yes: WNL ...Motor Strength: WNL Labs: CBC, BMP 02/01/19 12:00 02/01/19 06:42 Discharge Summary Problems reviewed: Yes Reason For Visit: Pain abdomen Current Active Problems Diverticulosis (Acute) Epigastric abdominal pain (Acute) Gastric ulcer (Acute) Gastritis (Acute) History of injury of muscle (Acute) Lipid disorder (Acute) T2DM (type 2 diabetes mellitus) (Acute) Procedures: Principal: EGD Hospital Course: 58 YOM admitted for worsening abd pain which began 4-5 days [employer] that got worse after starting NSAID (given to him by PCP for his chronic neck arthritis). He denied any n-v; no rectal bleed. CT of abd & pelvis was unremarkable, his H/h and VS were stable. he underwent EGD uneventfully and was found to have gastritis and an antral ulcer. He was placed on IV PPI; he ate well w/o any pains, and his VS remained stable. Health Concerns: none Plan of Treatment: oral PPI Goals: ulcer healing Condition: Stable - Instructions Diet, Activity, Other Instructions: no spicey foods no alcoholic drinks no aspirin for now no use of advil; alleve, motrin Tylenol only for pain See Dr Miller in 1 week; see Dr Tracy Referrals: Lambert Miller MD [Primary Care Provider] - Disposition: HOME - Home Medications Comprehensive Discharge Medication List: Ambulatory Orders Atorvastatin Ca [Lipitor] 20 mg PO HS 09/01/14 metFORMIN HCL [Glucophage -] 500 mg PO DAILY 09/01/14 Pantoprazole Sodium [Protonix -] 40 mg PO BID #60 tablet.ec 02/02/19
[2019-02-02 10:54] VITALS: BP 135/74; PULSE 74; TEMP 98.1
--- NOTE | 2019-02-02 12:23 | PN.GI ---
GI Progress Note Subjective: GI NOte: Pain free and tolerating diet - Objective Vital Signs: Vital Signs Temperature 98.1 F 02/02/19 10:00 Pulse Rate 74 02/02/19 10:00 Respiratory Rate 16 02/02/19 10:00 Blood Pressure 135/74 02/02/19 10:00 O2 Sat by Pulse Oximetry (%) 98 02/02/19 09:00 Constitutional: Calm ...Auscultate: Yes: Normoactive Bowel Sounds ...Palpate: Yes: Soft, Other (nontender) Labs: CBC, BMP 02/01/19 12:00 02/01/19 06:42 INR, PTT INR 1.06 (0.83-1.09) 01/30/19 19:05 Assessment/Plan Impression: - Pain due to gastric ulcer resolved. Biopsies pending - GERD - Personal h/o colon adenomas - Diverticulosis Plan: -- No GI objections to discharge. Again discussed the need to followup in my office to arrange a repeat EGD to assure ulcer healing and to exclude a malignant ulcer. Problem List - Problems (1) Epigastric abdominal pain Code(s): R10.13 - EPIGASTRIC PAIN (2) Gastric ulcer Code(s): K25.9 - GASTRIC ULCER, UNSP ACUTE OR CHRONIC, W/O HEMOR OR PERF Qualifiers: Gastric ulcer chronicity: unspecified ulcer chronicity (3) Gastritis Code(s): K29.70 - GASTRITIS, UNSPECIFIED, WITHOUT BLEEDING (4) Colon adenomas Code(s): D12.6 - BENIGN NEOPLASM OF COLON, UNSPECIFIED (5) Diverticulosis Code(s): K57.90 - DVRTCLOS OF INTEST, PART UNSP, W/O PERF OR ABSCESS W/O BLEED
--- NOTE | 2019-02-02 18:07 | PATH ---
Surgical Pathology Report Patient Name: LEATHA MAI [facility]. Rec. #: [id number] /Age/Gender: 1960 (Age: 58) / M Account: [id number] Location: [address] [place] [address] Taken: 01/30/2019 Received: 01/31/2019 Reported: 02/02/2019 Physicians: Marj Vo M.D. Specimen(s) Received ANTRUM Clinical History Abdominal pain Postoperative diagnosis: Multiple antral gastric ulcers Final Diagnosis STOMACH, ANTRUM, BIOPSY: GASTRIC ANTRAL MUCOSA WITH MILD CHRONIC GASTRITIS. IMMUNOHISTOCHEMICAL STAIN FOR H. PYLORI IS NEGATIVE. Electronically Signed Caitlin Tamayo M.D. Gross Description Received in formalin, labeled "biopsy antrum" are 2 carey, irregular portions of soft tissue measuring 0.3 and 0.5 cm. in greatest dimension. The specimens are submitted in toto in one cassette. /01/31/2019 saudi01/31/2019
== END 2019-02-02 15:05 | disposition home or self-care (01) | DRG 384 ==
LOC: JER 18:04 → JERBED 23:36 → J6S 01-31 02:10
PROVIDERS: ADMIT Internal Medicine Hematology & Oncology; ATTEND Internal Medicine Hematology & Oncology
PROC: 0DB68ZX Excision of Stomach, Via Natural or Artificial Opening Endoscopic, Diagnostic (ICD-10-PCS; principal; 2019-01-30)
DX: K25.9 Gastric ulcer, unspecified as acute or chronic, without hemorrhage or perforation (principal); E11.9 Type 2 diabetes mellitus without complications; K21.9 Gastro-esophageal reflux disease without esophagitis; K57.90 Diverticulosis of intestine, part unspecified, without perforation or abscess without bleeding; K29.50 Unspecified chronic gastritis without bleeding; E78.5 Hyperlipidemia, unspecified
CPT/HCPCS: 36415; 71045-TC-FY; 74177-TC; 80048; 80053; 81003; 83036; 83690; 83880; 84484; 85025; 85610; 85730; 86301; 87086; 88305-TC; 93005; 93010; 99284-25; J0131; J7030; Q2036

== ENCOUNTER 2019-05-06 07:00 | Day surgery (SDC) | payer OTHER ==
[2019-05-05 12:05] VITALS: BMI 29.0
[2019-05-06 08:48] VITALS: TEMP 97.8
[2019-05-06 12:14] VITALS: BP 139/81; PULSE 71
--- NOTE | 2019-05-09 15:15 | PATH ---
Surgical Pathology Report Patient Name: LEATHA MAI [facility]. Rec. #: [id number] /Age/Gender: 1960 (Age: 59) / M Account: [id number] Location: [facility] Taken: 05/06/2019 Received: 05/06/2019 Reported: 05/09/2019 Physicians: Bi Tracy M.D. Specimen(s) Received GASTRIC ANTRUM Clinical History Assess healing of gastric ulcer Postoperative diagnosis: Healed gastric ulcer, atrophic gastritis Final Diagnosis GASTRIC ANTRUM, BIOPSY: GASTRIC ANTRAL MUCOSA WITH MILD CHRONIC GASTRITIS AND FOCAL REACTIVE CHANGES. IMMUNOHISTOCHEMICAL STAIN FOR H. PYLORI IS NEGATIVE. Electronically Signed Caitlin Tamayo M.D. Gross Description Received in formalin, labeled "biopsy gastric antrum" are 3 carey, irregular portions of soft tissue averaging 0.3 cm. in greatest dimension. The specimens are submitted in toto in one cassette. /05/06/2019 saudi05/06/2019
== END 2019-05-06 09:54 | disposition home or self-care (01) ==
LOC: JASU-ENDO 07:00
PROVIDERS: ATTEND Internal Medicine Gastroenterology
PROC: 0DB68ZX Excision of Stomach, Via Natural or Artificial Opening Endoscopic, Diagnostic (ICD-10-PCS; principal; 2019-05-06 08:00)
DX: Z09 Encounter for follow-up examination after completed treatment for conditions other than malignant neoplasm (principal); K25.9 Gastric ulcer, unspecified as acute or chronic, without hemorrhage or perforation; E11.9 Type 2 diabetes mellitus without complications; Z79.84 Long term (current) use of oral hypoglycemic drugs
CPT/HCPCS: 88305-TC; 88342-TC

== ENCOUNTER 2019-10-19 08:26 | Day surgery (SDC) | payer OTHER ==
[2019-10-19 08:06] VITALS: BMI 32.4
[2019-10-19 10:13] VITALS: TEMP 98.1
[2019-10-19 10:53] VITALS: BP 122/58; PULSE 59
--- NOTE | 2019-10-20 10:21 | PATH ---
Surgical Pathology Report Patient Name: LEATHA MAI [facility]. Rec. #: [id number] /Age/Gender: 1960 (Age: 59) / M Account: [id number] Location: [facility] Taken: 10/19/2019 Received: 10/19/2019 Reported: 10/20/2019 Physicians: Bi Tracy M.D. Specimen(s) Received RIGHT COLON POLYP Clinical History Adenoma surveillance Postoperative diagnosis: Colon polyp, diverticulosis Final Diagnosis RIGHT COLON POLYP, POLYPECTOMY: TUBULAR ADENOMA. Electronically Signed Dread Dewitt M.D. Gross Description Received in formalin, labeled "right colon polyp" are 2 carey, irregular portions of soft tissue measuring 0.3 and 0.4 cm. in greatest dimension. The specimens are submitted in toto in one cassette. /10/19/2019 saudi/10/19/2019
== END 2019-10-19 11:06 | disposition home or self-care (01) ==
LOC: JASU-ENDO 08:26
PROVIDERS: ATTEND Internal Medicine Gastroenterology
PROC: 0DBK8ZX Excision of Ascending Colon, Via Natural or Artificial Opening Endoscopic, Diagnostic (ICD-10-PCS; principal; 2019-10-19 09:00)
DX: Z12.11 Encounter for screening for malignant neoplasm of colon (principal); Z86.010 Personal history of colon polyps; D12.2 Benign neoplasm of ascending colon; K57.30 Diverticulosis of large intestine without perforation or abscess without bleeding; K64.8 Other hemorrhoids; E11.9 Type 2 diabetes mellitus without complications
CPT/HCPCS: 88305-TC

== ENCOUNTER 2021-11-03 23:38 | Emergency (ER) | payer OTHER ==
[2021-11-03 23:45] VITALS: PULSE 75; RESP 18; TEMP 97.6; BMI 27.9
[2021-11-04] MEDS ORDERED: ASPIRIN 81 MG CHEWABLE TABLETS PO ONE (00:05)
[2021-11-04] MEDS ORDERED: ASPIRIN 81 MG CHEWABLE TABLETS ONE (00:06)
[2021-11-04] MEDS ORDERED: HEPARIN NA (PORCINE) 5,000 UNITS/ML 1ML VIAL IVPUSH ONE (00:22)
[2021-11-04] MEDS ORDERED: HEPARIN NA (PORCINE) 5,000 UNITS/ML 1ML VIAL IVPUSH PRN ×2 (00:22)
[2021-11-04] MEDS ORDERED: PANTOPRAZOLE SODIUM 40 MG VIAL IVPUSH ONE (00:22)
[2021-11-04] MEDS ORDERED: HEPARIN NA (PORCINE) 5,000 UNITS/ML 1ML VIAL ONE (00:29)
[2021-11-04] MEDS ORDERED: HEPARIN INFUSION - 25,000 UNITS/500 ML INFUS.BAG IVPB ONE (00:29)
[2021-11-04] MEDS ORDERED: HEPARIN - 25,000 UNIT in SODIUM CHLORIDE 495 ML IV SCH (00:30)
[2021-11-04] MEDS ORDERED: PANTOPRAZOLE SODIUM 80 MG/200 ML BAG IVPB ONE (00:44)
[2021-11-04] MEDS ORDERED: HEPARIN SOD,PORK IN 0.45% NACL 25,000 UNITS/500 ML INFUS.BAG IVPB SCH (00:47)
[2021-11-04 01:03] LABS: BASO % 1.5 % (0-2.0); HEMATOCRIT 36.2 % (35.4-49); HEMOGLOBIN 12.3 GM/dL (11.7-16.9); LYMPH % 27.8 % (8-40); MCH 27.2 pg (25.7-33.7); MEAN CELL VOLUME 80.1 fl (80-96); MEAN PLT VOLUME 8.4 fl (7.5-11.1); MONO % 10.6 % (3.8-10.2); NEUT % 57.1 % (42.8-82.8); PLATELET COUNT 164 10^3/uL (134-434); RBC 4.52 M/mm3 (4.00-5.60); RDW 17.1 % (11.9-15.9); WHITE BLOOD COUNT 7.6 K/mm3 (4.0-10.0)
[2021-11-04 01:04] VITALS: BP 157/85
[2021-11-04 01:12] LABS: INR 1.31 (0.83-1.09); PROTHROMBIN TIME (PATIENT) 15.1 SEC (9.7-13.0)
[2021-11-04 01:15] LABS: ACTIVATED PTT 36.5 SECONDS (25.2-36.5)
[2021-11-04 01:24] LABS: CALCIUM 9.1 mg/dL (8.5-10.1)
[2021-11-04 01:25] LABS: ALBUMIN 4.6 g/dl (3.4-5.0); MAGNESIUM 2.7 mg/dL (1.8-2.4)
[2021-11-04 01:27] LABS: CREATININE 1.3 mg/dL (0.55-1.3)
[2021-11-04 01:29] LABS: BILIRUBIN,TOTAL 0.9 mg/dL (0.2-1); TOT PROT 7.7 g/dl (6.4-8.2)
== END 2021-11-04 01:10 | disposition short-term general hospital (02) ==
LOC: JER 23:38
PROC: 3E033GC Introduction of Other Therapeutic Substance into Peripheral Vein, Percutaneous Approach (ICD-10-PCS; principal; 2021-11-03)
PROC: 3E033GC Introduction of Other Therapeutic Substance into Peripheral Vein, Percutaneous Approach (ICD-10-PCS; 2021-11-03)
PROC: 3E033GC Introduction of Other Therapeutic Substance into Peripheral Vein, Percutaneous Approach (ICD-10-PCS; 2021-11-03)
PROC: 3E033GC Introduction of Other Therapeutic Substance into Peripheral Vein, Percutaneous Approach (ICD-10-PCS; 2021-11-03)
DX: R10.13 Epigastric pain (principal)
CPT/HCPCS: 36415; 71045-TC-FY; 80053; 82272; 83690; 83735; 84484; 85025; 85610; 85730; 86850; 86900; 86901; 93005; 93010; 99285-25; C9803-CS; J1644; U0003; U0005

== ENCOUNTER 2022-01-28 17:39 | Emergency (ER) | payer OTHER ==
[2022-01-28 18:02] VITALS: BP 134/75; PULSE 83; RESP 18; TEMP 98.2; BMI 28.2
[2022-01-28 20:49] LABS: BASO % 1.3 % (0-2.0); EOS % 1.9 % (0-4.5); HEMATOCRIT 34.2 % (35.4-49); HEMOGLOBIN 11.6 GM/dL (11.7-16.9); LYMPH % 23.6 % (8-40); MCH 26.1 pg (25.7-33.7); MCHC 33.9 g/dl (32.0-35.9); MEAN CELL VOLUME 77.1 fl (80-96); MEAN PLT VOLUME 8.4 fl (7.5-11.1); MONO % 10.6 % (3.8-10.2); NEUT % 62.6 % (42.8-82.8); PLATELET COUNT 216 10^3/uL (134-434); RBC 4.43 M/mm3 (4.00-5.60); RDW 17.7 % (11.9-15.9); WHITE BLOOD COUNT 7.9 K/mm3 (4.0-10.0)
[2022-01-28 21:07] LABS: CALCIUM 9.6 mg/dL (8.5-10.1)
[2022-01-28 21:08] LABS: ALBUMIN 4.4 g/dl (3.4-5.0); BLOOD UREA NITROGEN 22.7 mg/dL (7-18)
[2022-01-28 21:11] LABS: CREATININE 1.1 mg/dL (0.55-1.3)
[2022-01-28 21:13] LABS: BILIRUBIN,TOTAL 0.9 mg/dL (0.2-1); TOT PROT 7.3 g/dl (6.4-8.2)
== END 2022-01-28 22:27 | disposition home or self-care (01) ==
LOC: JER 17:39
DX: R51.9 Headache, unspecified (principal)
CPT/HCPCS: 36415; 70450-TC; 80053; 82962; 85025; 99284-25

== ENCOUNTER 2022-03-24 04:32 | Day surgery (SDC) | payer OTHER ==
[2022-03-21 10:04] VITALS: BMI 26.3
[2022-03-24 07:48] VITALS: RESP 18
[2022-03-24 09:03] VITALS: TEMP 98
[2022-03-24 09:41] VITALS: BP 125/71; PULSE 66
== END 2022-03-24 09:50 | disposition home or self-care (01) ==
LOC: JASU-ENDO 04:32
PROVIDERS: ATTEND Internal Medicine Gastroenterology
PROC: 0DJ08ZZ Inspection of Upper Intestinal Tract, Via Natural or Artificial Opening Endoscopic (ICD-10-PCS; principal; 2022-03-24 09:00)
DX: K25.9 Gastric ulcer, unspecified as acute or chronic, without hemorrhage or perforation (principal)

== ENCOUNTER 2022-04-29 23:41 | Inpatient (IN) | payer OTHER ==
[2022-04-30] MEDS ORDERED: ACETAMINOPHEN 1000 MG/100 ML BAG IVPB ONE (01:12)
[2022-04-30 01:45] LABS: BASO % 1.2 % (0-2.0); EOS % 1.9 % (0-4.5); HEMOGLOBIN 11.9 GM/dL (11.7-16.9); LYMPH % 18.9 % (8-40); MCH 25.1 pg (25.7-33.7); MCHC 33.2 g/dl (32.0-35.9); MEAN CELL VOLUME 75.8 fl (80-96); MONO % 9.6 % (3.8-10.2); NEUT % 68.4 % (42.8-82.8); PLATELET COUNT 342 10^3/uL (134-434); RBC 4.75 M/mm3 (4.00-5.60); RDW 21.8 % (11.9-15.9); WHITE BLOOD COUNT 9.6 K/mm3 (4.0-10.0)
[2022-04-30 01:52] LABS: INR 1.46 (0.83-1.09); PROTHROMBIN TIME (PATIENT) 16.8 SEC (9.7-13.0)
[2022-04-30 01:55] LABS: ACTIVATED PTT 37.9 SECONDS (25.2-36.5)
[2022-04-30 02:07] LABS: CALCIUM 9.5 mg/dL (8.5-10.1)
[2022-04-30 02:08] LABS: BLOOD UREA NITROGEN 36.5 mg/dL (7-18)
[2022-04-30 02:11] LABS: CREATININE 1.4 mg/dL (0.55-1.3)
[2022-04-30 02:12] LABS: TOT PROT 7.6 g/dl (6.4-8.2)
[2022-04-30 04:24] LABS: PH,URINE 5.5 (5.0-8.0); URINE APPEARANCE CLEAR; URINE BILIRUBIN NEGATIVE (NEGATIVE); URINE COLOR YELLOW; URINE GLUCOSE (UA) 3+ (NEGATIVE); URINE KETONE NEGATIVE (NEGATIVE); URINE LEUK ESTERASE NEGATIVE (NEGATIVE); URINE NITRITE NEGATIVE (NEGATIVE); URINE PROTEIN NEGATIVE (NEGATIVE); URINE UROBILINOGEN 0.2 mg/dL (0.2-1.0)
[2022-04-30] MEDS ORDERED: ASPIRIN 81 MG CHEWABLE TABLETS PO ONE (07:32)
[2022-04-30] MEDS ORDERED: SODIUM CHLORIDE 500 ML IV STA (07:32)
[2022-04-30 07:52] LABS: MAGNESIUM 2.3 mg/dL (1.8-2.4)
[2022-04-30] MEDS ORDERED: ASPIRIN 81 MG CHEWABLE TABLETS ONE (09:19)
[2022-04-30] MEDS ORDERED: ACETAMINOPHEN INJECTION 100 ML IVPB ONE (09:20)
[2022-04-30] MEDS: DEXTROSE 5%-NORMAL SALINE 1,000 ML IV SCH (20:47)
[2022-04-30] MEDS: PIPERACILLIN/TAZOB 3.375 GM 3.375 GM in DEXTROSE 5%-WATER - 50 ML IVPB SCH (20:50)
[2022-04-30 22:16] VITALS: BMI 26.4
[2022-04-30 22:39] LABS: GAMMA GLUTAMYL TRANSPEPTIDASE 1078 U/L (5-85)
[2022-05-01] MEDS: PIPERACILLIN/TAZOB 3.375 GM 3.375 GM in DEXTROSE 5%-WATER - 50 ML IVPB SCH ×2 (01:14→10:47)
[2022-05-01 07:42] LABS: BASO % 1.1 % (0-2.0); EOS % 1.8 % (0-4.5); HEMATOCRIT 34.5 % (35.4-49); HEMOGLOBIN 11.3 GM/dL (11.7-16.9); LYMPH % 17.7 % (8-40); MCH 25.4 pg (25.7-33.7); MCHC 32.9 g/dl (32.0-35.9); MEAN CELL VOLUME 77.3 fl (80-96); MEAN PLT VOLUME 8.9 fl (7.5-11.1); MONO % 8.5 % (3.8-10.2); NEUT % 70.9 % (42.8-82.8); PLATELET COUNT 239 10^3/uL (134-434); RBC 4.45 M/mm3 (4.00-5.60); RDW 20.6 % (11.9-15.9); WHITE BLOOD COUNT 9.1 K/mm3 (4.0-10.0)
[2022-05-01 07:46] LABS: INR 1.56 (0.83-1.09)
[2022-05-01 08:03] LABS: ALBUMIN 3.6 g/dl (3.4-5.0); BLOOD UREA NITROGEN 24.1 mg/dL (7-18); CALCIUM 9.3 mg/dL (8.5-10.1)
[2022-05-01 08:07] LABS: CREATININE 1.2 mg/dL (0.55-1.3)
[2022-05-01 08:08] LABS: BILIRUBIN,DIRECT 0.4 mg/dL (0.0-0.2); TOT PROT 6.7 g/dl (6.4-8.2)
[2022-05-01] MEDS: metoPROLOL SUCCINATE 25 MG TAB.SR.24H (FP) PO SCH (10:46)
[2022-05-01] MEDS: TAMSULOSIN HCL 0.4 MG CAP PO SCH (10:46)
[2022-05-01] MEDS: CLOPIDOGREL BISULFATE 75 MG TABLET (FP) PO SCH (10:46)
[2022-05-01] MEDS: ASPIRIN 81 MG CHEWABLE TABLETS PO SCH (10:46)
[2022-05-01] MEDS: DEXTROSE 5%-NORMAL SALINE 1,000 ML IV SCH (18:26)
[2022-05-01] MEDS ORDERED: PIPERACILLIN/TAZOB 3.375 GM 3.375 GM in DEXTROSE 5%-WATER - 50 ML IVPB ONE (20:49)
[2022-05-02] MEDS ORDERED: PIPERACILLIN/TAZOB 3.375 GM 3.375 GM in DEXTROSE 5%-WATER - 50 ML IVPB ONE (04:00)
[2022-05-02] MEDS: DEXTROSE 5%-NORMAL SALINE 1,000 ML IV SCH ×2 (05:26→22:26)
[2022-05-02 09:19] LABS: CALCIUM 9.3 mg/dL (8.5-10.1)
[2022-05-02 09:21] LABS: ALBUMIN 3.6 g/dl (3.4-5.0); BLOOD UREA NITROGEN 21.5 mg/dL (7-18)
[2022-05-02 09:23] LABS: CREATININE 1.2 mg/dL (0.55-1.3)
[2022-05-02 09:26] LABS: BILIRUBIN,TOTAL 1.9 mg/dL (0.2-1); TOT PROT 6.7 g/dl (6.4-8.2)
[2022-05-02] MEDS: metoPROLOL SUCCINATE 25 MG TAB.SR.24H (FP) PO SCH (10:36)
[2022-05-02] MEDS: TAMSULOSIN HCL 0.4 MG CAP PO SCH (10:36)
[2022-05-02] MEDS: ASPIRIN 81 MG CHEWABLE TABLETS PO SCH (10:36)
[2022-05-02] MEDS: PIPERACILLIN/TAZOB 3.375 GM 3.375 GM in DEXTROSE 5%-WATER - 50 ML IVPB SCH (17:48)
[2022-05-03] MEDS: PIPERACILLIN/TAZOB 3.375 GM 3.375 GM in DEXTROSE 5%-WATER - 50 ML IVPB SCH ×3 (01:40→17:55)
[2022-05-03] MEDS: metoPROLOL SUCCINATE 25 MG TAB.SR.24H (FP) PO SCH (09:36)
[2022-05-03] MEDS: CLOPIDOGREL BISULFATE 75 MG TABLET (FP) PO SCH (09:36)
[2022-05-03] MEDS: ASPIRIN 81 MG CHEWABLE TABLETS PO SCH (09:36)
[2022-05-03] MEDS: TAMSULOSIN HCL 0.4 MG CAP PO SCH (09:36)
[2022-05-03] MEDS: DEXTROSE 5%-NORMAL SALINE 1,000 ML IV SCH ×2 (09:44→23:32)
[2022-05-04] MEDS: PIPERACILLIN/TAZOB 3.375 GM 3.375 GM in DEXTROSE 5%-WATER - 50 ML IVPB SCH ×3 (02:06→17:20)
[2022-05-04 08:44] LABS: EOS % 3.4 % (0-4.5); HEMATOCRIT 33.2 % (35.4-49); HEMOGLOBIN 10.8 GM/dL (11.7-16.9); LYMPH % 20.6 % (8-40); MCH 25.5 pg (25.7-33.7); MCHC 32.5 g/dl (32.0-35.9); MEAN CELL VOLUME 78.3 fl (80-96); MEAN PLT VOLUME 8.7 fl (7.5-11.1); PLATELET COUNT 257 10^3/uL (134-434); RBC 4.24 M/mm3 (4.00-5.60); RDW 20.7 % (11.9-15.9); WHITE BLOOD COUNT 6.8 K/mm3 (4.0-10.0)
[2022-05-04 09:03] LABS: ALBUMIN 3.5 g/dl (3.4-5.0); BLOOD UREA NITROGEN 12.4 mg/dL (7-18); CALCIUM 9.1 mg/dL (8.5-10.1)
[2022-05-04 09:06] LABS: CREATININE 1.2 mg/dL (0.55-1.3)
[2022-05-04 09:08] LABS: BILIRUBIN,TOTAL 1.3 mg/dL (0.2-1); TOT PROT 6.6 g/dl (6.4-8.2)
[2022-05-04] MEDS: TAMSULOSIN HCL 0.4 MG CAP PO SCH (10:00)
[2022-05-04] MEDS: ASPIRIN 81 MG CHEWABLE TABLETS PO SCH (10:00)
[2022-05-04] MEDS: CLOPIDOGREL BISULFATE 75 MG TABLET (FP) PO SCH (10:01)
[2022-05-04] MEDS: metoPROLOL SUCCINATE 25 MG TAB.SR.24H (FP) PO SCH (10:01)
[2022-05-04 12:37] LABS: ANISOCYTOSIS 3+; MACROCYTOSIS 0
[2022-05-04] MEDS: DEXTROSE 5%-NORMAL SALINE 1,000 ML IV SCH (17:20)
[2022-05-04] MEDS: DOCUSATE SODIUM 100 MG CAPSULE (FP) PO PRN (21:56)
[2022-05-05] MEDS: PIPERACILLIN/TAZOB 3.375 GM 3.375 GM in DEXTROSE 5%-WATER - 50 ML IVPB SCH ×3 (01:20→18:27)
[2022-05-05] MEDS: DEXTROSE 5%-NORMAL SALINE 1,000 ML IV SCH ×2 (01:21→18:34)
[2022-05-05] MEDS: TAMSULOSIN HCL 0.4 MG CAP PO SCH (10:04)
[2022-05-05] MEDS: metoPROLOL SUCCINATE 25 MG TAB.SR.24H (FP) PO SCH (10:04)
[2022-05-05] MEDS: ASPIRIN 81 MG CHEWABLE TABLETS PO SCH (10:05)
[2022-05-06] MEDS: DOCUSATE SODIUM 100 MG CAPSULE (FP) PO PRN (01:05)
[2022-05-06] MEDS: PIPERACILLIN/TAZOB 3.375 GM 3.375 GM in DEXTROSE 5%-WATER - 50 ML IVPB SCH ×3 (01:54→17:53)
[2022-05-06] MEDS: TAMSULOSIN HCL 0.4 MG CAP PO SCH (09:44)
[2022-05-06] MEDS: ASPIRIN 81 MG CHEWABLE TABLETS PO SCH (09:44)
[2022-05-06] MEDS: metoPROLOL SUCCINATE 25 MG TAB.SR.24H (FP) PO SCH (09:44)
[2022-05-06] MEDS: POLYETHYLENE GLYCOL (HEALTHYLAX) 3350 17 GM PACKET PO SCH (11:26)
[2022-05-06] MEDS: DEXTROSE 5%-NORMAL SALINE 1,000 ML IV SCH (17:53)
[2022-05-07] MEDS: PIPERACILLIN/TAZOB 3.375 GM 3.375 GM in DEXTROSE 5%-WATER - 50 ML IVPB SCH ×2 (02:40→10:09)
[2022-05-07] MEDS: DEXTROSE 5%-NORMAL SALINE 1,000 ML IV SCH (06:22)
[2022-05-07] MEDS: TAMSULOSIN HCL 0.4 MG CAP PO SCH (09:03)
[2022-05-07] MEDS ORDERED: BUPIVACAINE HCL/PF 0.5% (5MG/ML) 10 ML VIAL ONE (09:08)
[2022-05-07] MEDS: ASPIRIN 81 MG CHEWABLE TABLETS PO SCH (10:00)
[2022-05-07] MEDS: POLYETHYLENE GLYCOL (HEALTHYLAX) 3350 17 GM PACKET PO SCH (10:01)
[2022-05-07] MEDS: DOCUSATE SODIUM 100 MG CAPSULE (FP) PO PRN (10:09)
[2022-05-07] MEDS: metoPROLOL SUCCINATE 25 MG TAB.SR.24H (FP) PO SCH (10:09)
[2022-05-07] MEDS ORDERED: LIDOCAINE HCL/PF 2% SDV 5ML VIAL ONE (10:50)
[2022-05-07] MEDS ORDERED: PROPOFOL 40 ML ONE (10:50)
[2022-05-07] MEDS ORDERED: MIDAZOLAM HCL 2 MG/2 ML SINGLE DOSE VIAL ONE (10:50)
[2022-05-07] MEDS ORDERED: ROCURONIUM BROMIDE 50 MG/5 ML SYRINGE ONE (10:52)
[2022-05-07] MEDS ORDERED: SUCCINYLCHOLINE CHLORIDE 200 MG/10 ML SYRINGE ONE (10:52)
[2022-05-07] MEDS ORDERED: DEXAMETHASONE SOD PHOSPHATE 4 MG/1 ML VIAL ONE (11:18)
[2022-05-07] MEDS ORDERED: ONDANSETRON 4 MG/2 ML VIAL ONE (11:18)
[2022-05-07] MEDS ORDERED: BUPIVACAINE HCL/PF 0.5% (5MG/ML) 10 ML VIAL IJ ONE ×2 (11:32)
[2022-05-07] MEDS ORDERED: NEOSTIGMINE METHYLSULFATE 0.5 MG/1 ML - 10 ML MDV ONE (12:29)
[2022-05-07] MEDS ORDERED: oxyCODONE HCL 5 MG TABLET PO PRN (13:34)
[2022-05-07] MEDS ORDERED: ONDANSETRON 4 MG/2 ML VIAL IVPUSH PRN ×2 (13:34→13:58)
[2022-05-07] MEDS ORDERED: ACETAMINOPHEN 1000 MG/100 ML BAG IVPB ONE (13:35)
[2022-05-07] MEDS ORDERED: ACETAMINOPHEN INJECTION 100 ML IVPB ONE (13:39)
[2022-05-07] MEDS ORDERED: LACTATED RINGERS SOLUTION 1,000 ML IV SCH (13:45)
[2022-05-07] MEDS: LACTATED RINGERS SOLUTION 1,000 ML IV SCH (15:35)
[2022-05-07 21:19] LABS: BASO % 0.3 % (0-2.0); HEMATOCRIT 27.5 % (35.4-49); LYMPH % 5.6 % (8-40); MCH 25.9 pg (25.7-33.7); MCHC 32.7 g/dl (32.0-35.9); MEAN CELL VOLUME 79.3 fl (80-96); MEAN PLT VOLUME 7.5 fl (7.5-11.1); MONO % 4.4 % (3.8-10.2); NEUT % 89.7 % (42.8-82.8); PLATELET COUNT 214 10^3/uL (134-434); RBC 3.46 M/mm3 (4.00-5.60); RDW 20.1 % (11.9-15.9); WHITE BLOOD COUNT 11.2 K/mm3 (4.0-10.0)
[2022-05-07] MEDS: ACETAMINOPHEN 1000 MG/100 ML BAG IVPB SCH (21:38)
[2022-05-07] MEDS: oxyCODONE HCL 5 MG TABLET PO PRN (23:44)
[2022-05-08] MEDS: ACETAMINOPHEN 1000 MG/100 ML BAG IVPB SCH ×2 (05:18→13:37)
[2022-05-08] MEDS: LACTATED RINGERS SOLUTION 1,000 ML IV SCH ×2 (05:24→15:17)
[2022-05-08 07:32] LABS: BASO % 0.4 % (0-2.0); EOS % 0.1 % (0-4.5); HEMATOCRIT 26.2 % (35.4-49); HEMOGLOBIN 8.7 GM/dL (11.7-16.9); LYMPH % 11.7 % (8-40); MCH 26.3 pg (25.7-33.7); MCHC 33.2 g/dl (32.0-35.9); MEAN CELL VOLUME 79.2 fl (80-96); MEAN PLT VOLUME 8.1 fl (7.5-11.1); MONO % 7.9 % (3.8-10.2); NEUT % 79.9 % (42.8-82.8); PLATELET COUNT 210 10^3/uL (134-434); RBC 3.31 M/mm3 (4.00-5.60); RDW 20.7 % (11.9-15.9); WHITE BLOOD COUNT 11.1 K/mm3 (4.0-10.0)
[2022-05-08 07:55] LABS: CALCIUM 8.8 mg/dL (8.5-10.1)
[2022-05-08 07:56] LABS: BLOOD UREA NITROGEN 12.3 mg/dL (7-18)
[2022-05-08 07:59] LABS: CREATININE 1.2 mg/dL (0.55-1.3)
[2022-05-08 08:00] LABS: BILIRUBIN,TOTAL 1.4 mg/dL (0.2-1); TOT PROT 5.6 g/dl (6.4-8.2)
[2022-05-08] MEDS: ASPIRIN 81 MG CHEWABLE TABLETS PO SCH (10:00)
[2022-05-08] MEDS: POLYETHYLENE GLYCOL (HEALTHYLAX) 3350 17 GM PACKET PO SCH (10:02)
[2022-05-08] MEDS: oxyCODONE HCL 5 MG TABLET PO PRN (10:02)
[2022-05-08] MEDS: metoPROLOL SUCCINATE 25 MG TAB.SR.24H (FP) PO SCH (10:03)
[2022-05-08] MEDS: TAMSULOSIN HCL 0.4 MG CAP PO SCH (10:05)
[2022-05-08 10:41] LABS: ANISOCYTOSIS 0; MACROCYTOSIS 0
[2022-05-08] MEDS: ACETAMINOPHEN 500 MG TABLET (FP) PO PRN (22:04)
[2022-05-09] MEDS: LACTATED RINGERS SOLUTION 1,000 ML IV SCH ×2 (02:45→17:09)
[2022-05-09] MEDS: ACETAMINOPHEN 500 MG TABLET (FP) PO PRN (06:04)
[2022-05-09] MEDS: DOCUSATE SODIUM 100 MG CAPSULE (FP) PO PRN (06:05)
[2022-05-09 08:17] LABS: BASO % 0.9 % (0-2.0); EOS % 0.4 % (0-4.5); HEMATOCRIT 26.7 % (35.4-49); HEMOGLOBIN 8.8 GM/dL (11.7-16.9); LYMPH % 14.4 % (8-40); MCH 26.6 pg (25.7-33.7); MEAN CELL VOLUME 80.4 fl (80-96); MEAN PLT VOLUME 8.5 fl (7.5-11.1); NEUT % 76.3 % (42.8-82.8); PLATELET COUNT 240 10^3/uL (134-434); RBC 3.32 M/mm3 (4.00-5.60); RDW 20.9 % (11.9-15.9); WHITE BLOOD COUNT 10.8 K/mm3 (4.0-10.0)
[2022-05-09 08:40] LABS: ALBUMIN 3.1 g/dl (3.4-5.0); BLOOD UREA NITROGEN 13.8 mg/dL (7-18)
[2022-05-09 08:43] LABS: CREATININE 0.9 mg/dL (0.55-1.3)
[2022-05-09 08:45] LABS: BILIRUBIN,TOTAL 1.6 mg/dL (0.2-1); TOT PROT 5.9 g/dl (6.4-8.2)
[2022-05-09] MEDS: POLYETHYLENE GLYCOL (HEALTHYLAX) 3350 17 GM PACKET PO SCH (09:05)
[2022-05-09] MEDS: TAMSULOSIN HCL 0.4 MG CAP PO SCH (09:06)
[2022-05-09] MEDS: metoPROLOL SUCCINATE 25 MG TAB.SR.24H (FP) PO SCH (09:06)
[2022-05-09] MEDS: ASPIRIN 81 MG CHEWABLE TABLETS PO SCH (09:06)
[2022-05-10] MEDS: ACETAMINOPHEN 500 MG TABLET (FP) PO PRN ×2 (00:13→21:18)
[2022-05-10 08:30] LABS: BASO % 1.3 % (0-2.0); EOS % 1.5 % (0-4.5); HEMATOCRIT 23.5 % (35.4-49); HEMOGLOBIN 8.1 GM/dL (11.7-16.9); LYMPH % 14.6 % (8-40); MCH 27.3 pg (25.7-33.7); MCHC 34.4 g/dl (32.0-35.9); MEAN CELL VOLUME 79.2 fl (80-96); MONO % 8.7 % (3.8-10.2); NEUT % 73.9 % (42.8-82.8); PLATELET COUNT 256 10^3/uL (134-434); RBC 2.96 M/mm3 (4.00-5.60); RDW 20.5 % (11.9-15.9); WHITE BLOOD COUNT 7.6 K/mm3 (4.0-10.0)
[2022-05-10 08:53] LABS: ALBUMIN 2.9 g/dl (3.4-5.0); CALCIUM 8.6 mg/dL (8.5-10.1)
[2022-05-10 08:54] LABS: BLOOD UREA NITROGEN 14.8 mg/dL (7-18)
[2022-05-10 08:57] LABS: CREATININE 0.7 mg/dL (0.55-1.3)
[2022-05-10 08:58] LABS: BILIRUBIN,TOTAL 1.6 mg/dL (0.2-1); TOT PROT 5.7 g/dl (6.4-8.2)
[2022-05-10] MEDS: ASPIRIN 81 MG CHEWABLE TABLETS PO SCH (09:33)
[2022-05-10] MEDS: POLYETHYLENE GLYCOL (HEALTHYLAX) 3350 17 GM PACKET PO SCH (09:33)
[2022-05-10] MEDS: TAMSULOSIN HCL 0.4 MG CAP PO SCH (09:33)
[2022-05-10] MEDS: metoPROLOL SUCCINATE 25 MG TAB.SR.24H (FP) PO SCH (09:33)
[2022-05-10] MEDS: LACTATED RINGERS SOLUTION 1,000 ML IV SCH (13:00)
[2022-05-11] MEDS: LACTATED RINGERS SOLUTION 1,000 ML IV SCH ×2 (02:45→19:29)
[2022-05-11 08:33] LABS: BASO % 0.9 % (0-2.0); EOS % 1.9 % (0-4.5); HEMATOCRIT 23.4 % (35.4-49); HEMOGLOBIN 7.9 GM/dL (11.7-16.9); LYMPH % 12.3 % (8-40); MCHC 33.8 g/dl (32.0-35.9); MEAN CELL VOLUME 79.8 fl (80-96); MEAN PLT VOLUME 8.3 fl (7.5-11.1); MONO % 9.1 % (3.8-10.2); NEUT % 75.8 % (42.8-82.8); PLATELET COUNT 300 10^3/uL (134-434); RBC 2.94 M/mm3 (4.00-5.60); RDW 20.6 % (11.9-15.9); WHITE BLOOD COUNT 7.3 K/mm3 (4.0-10.0)
[2022-05-11 08:40] LABS: CALCIUM 8.6 mg/dL (8.5-10.1)
[2022-05-11 08:41] LABS: ALBUMIN 2.9 g/dl (3.4-5.0); BLOOD UREA NITROGEN 12.2 mg/dL (7-18)
[2022-05-11 08:42] LABS: CREATININE 0.8 mg/dL (0.55-1.3)
[2022-05-11 08:43] LABS: BILIRUBIN,TOTAL 1.3 mg/dL (0.2-1); TOT PROT 5.5 g/dl (6.4-8.2)
[2022-05-11] MEDS: POLYETHYLENE GLYCOL (HEALTHYLAX) 3350 17 GM PACKET PO SCH (09:32)
[2022-05-11] MEDS: ASPIRIN 81 MG CHEWABLE TABLETS PO SCH (09:33)
[2022-05-11] MEDS: TAMSULOSIN HCL 0.4 MG CAP PO SCH (09:33)
[2022-05-11] MEDS: metoPROLOL SUCCINATE 25 MG TAB.SR.24H (FP) PO SCH (09:33)
[2022-05-11 11:04] LABS: ANISOCYTOSIS 3+; MACROCYTOSIS 0
[2022-05-11 13:53] LABS: MAGNESIUM 1.9 mg/dL (1.8-2.4)
[2022-05-11 13:56] LABS: PHOSPHOROUS 2.3 mg/dL (2.5-4.9)
[2022-05-11] MEDS: DOCUSATE SODIUM 100 MG CAPSULE (FP) PO PRN (21:34)
[2022-05-11] MEDS: ACETAMINOPHEN 500 MG TABLET (FP) PO PRN (21:34)
[2022-05-12] MEDS: DOCUSATE SODIUM 100 MG CAPSULE (FP) PO PRN ×2 (09:26→21:20)
[2022-05-12] MEDS: POLYETHYLENE GLYCOL (HEALTHYLAX) 3350 17 GM PACKET PO SCH (09:26)
[2022-05-12] MEDS: metoPROLOL SUCCINATE 25 MG TAB.SR.24H (FP) PO SCH (09:26)
[2022-05-12] MEDS: TAMSULOSIN HCL 0.4 MG CAP PO SCH (09:26)
[2022-05-12] MEDS: ASPIRIN 81 MG CHEWABLE TABLETS PO SCH (09:26)
[2022-05-12] MEDS: CLOPIDOGREL BISULFATE 75 MG TABLET (FP) PO SCH (14:35)
[2022-05-12] MEDS: ACETAMINOPHEN 500 MG TABLET (FP) PO PRN (15:11)
[2022-05-12] MEDS: MAGNESIUM OXIDE 400 MG TABLET (FP) PO SCH ×2 (15:11→21:20)
[2022-05-12] MEDS ORDERED: ACETAMINOPHEN 1000 MG/100 ML BAG IVPB ONE (20:49)
[2022-05-12] MEDS ORDERED: BISACODYL 5 MG TABLET.DR (FP) PO ONE (21:10)
[2022-05-12] MEDS: LACTATED RINGERS SOLUTION 1,000 ML IV SCH (21:21)
[2022-05-13 08:29] LABS: BASO % 1.3 % (0-2.0); EOS % 3.5 % (0-4.5); HEMATOCRIT 26.1 % (35.4-49); HEMOGLOBIN 8.6 GM/dL (11.7-16.9); LYMPH % 13.5 % (8-40); MCH 26.1 pg (25.7-33.7); MCHC 32.9 g/dl (32.0-35.9); MEAN CELL VOLUME 79.3 fl (80-96); MEAN PLT VOLUME 8.5 fl (7.5-11.1); MONO % 8.8 % (3.8-10.2); NEUT % 72.9 % (42.8-82.8); PLATELET COUNT 320 10^3/uL (134-434); RBC 3.29 M/mm3 (4.00-5.60); RDW 20.2 % (11.9-15.9)
[2022-05-13 08:53] LABS: BLOOD UREA NITROGEN 11.3 mg/dL (7-18)
[2022-05-13 08:56] LABS: CREATININE 0.8 mg/dL (0.55-1.3)
[2022-05-13] MEDS: CLOPIDOGREL BISULFATE 75 MG TABLET (FP) PO SCH (10:01)
[2022-05-13] MEDS: POLYETHYLENE GLYCOL (HEALTHYLAX) 3350 17 GM PACKET PO SCH ×3 (10:01→21:55)
[2022-05-13] MEDS: ASPIRIN 81 MG CHEWABLE TABLETS PO SCH (10:01)
[2022-05-13] MEDS: DOCUSATE SODIUM 100 MG CAPSULE (FP) PO PRN (10:01)
[2022-05-13] MEDS: TAMSULOSIN HCL 0.4 MG CAP PO SCH (10:01)
[2022-05-13] MEDS: metoPROLOL SUCCINATE 25 MG TAB.SR.24H (FP) PO SCH (10:01)
[2022-05-13] MEDS: MAGNESIUM OXIDE 400 MG TABLET (FP) PO SCH ×2 (10:02→21:56)
[2022-05-14] MEDS: POLYETHYLENE GLYCOL (HEALTHYLAX) 3350 17 GM PACKET PO SCH ×3 (05:48→21:50)
[2022-05-14] MEDS: TAMSULOSIN HCL 0.4 MG CAP PO SCH (08:38)
[2022-05-14] MEDS: PANTOPRAZOLE 40 MG TABLET PO SCH (09:23)
[2022-05-14] MEDS: CLOPIDOGREL BISULFATE 75 MG TABLET (FP) PO SCH (09:23)
[2022-05-14] MEDS: metoPROLOL SUCCINATE 25 MG TAB.SR.24H (FP) PO SCH (09:23)
[2022-05-14] MEDS: ASPIRIN 81 MG CHEWABLE TABLETS PO SCH (09:23)
[2022-05-14] MEDS: MAGNESIUM OXIDE 400 MG TABLET (FP) PO SCH ×2 (09:23→21:50)
[2022-05-14] MEDS ORDERED: LACTULOSE 20 GM/30 ML UDC (FOR ORAL USE ONLY) PO PRN (11:32)
[2022-05-14] MEDS: Methylnaltrexone Bromide 12 MG/0.6 ML KIT SQ SCH (14:44)
[2022-05-14 20:20] LABS: PH,URINE 6.5 (5.0-8.0); URINE APPEARANCE CLEAR; URINE BILIRUBIN NEGATIVE (NEGATIVE); URINE COLOR YELLOW; URINE GLUCOSE (UA) NEGATIVE (NEGATIVE); URINE KETONE NEGATIVE (NEGATIVE); URINE LEUK ESTERASE NEGATIVE (NEGATIVE); URINE NITRITE NEGATIVE (NEGATIVE); URINE PROTEIN NEGATIVE (NEGATIVE)
[2022-05-14] MEDS: DOCUSATE SODIUM 100 MG CAPSULE (FP) PO PRN (21:50)
[2022-05-14] MEDS: ACETAMINOPHEN 500 MG TABLET (FP) PO PRN (23:14)
[2022-05-15] MEDS: POLYETHYLENE GLYCOL (HEALTHYLAX) 3350 17 GM PACKET PO SCH ×3 (06:14→21:27)
[2022-05-15] MEDS ORDERED: ACETAMINOPHEN 1000 MG/100 ML BAG IVPB ONE (06:15)
[2022-05-15] MEDS: PANTOPRAZOLE 40 MG TABLET PO SCH (09:39)
[2022-05-15] MEDS: ASPIRIN 81 MG CHEWABLE TABLETS PO SCH (09:39)
[2022-05-15] MEDS: MAGNESIUM OXIDE 400 MG TABLET (FP) PO SCH ×2 (09:39→21:31)
[2022-05-15] MEDS: CLOPIDOGREL BISULFATE 75 MG TABLET (FP) PO SCH (09:39)
[2022-05-15] MEDS: TAMSULOSIN HCL 0.4 MG CAP PO SCH (09:39)
[2022-05-15] MEDS: metoPROLOL SUCCINATE 25 MG TAB.SR.24H (FP) PO SCH (09:39)
[2022-05-15] MEDS: Methylnaltrexone Bromide 12 MG/0.6 ML KIT SQ SCH (11:08)
[2022-05-15] MEDS: DOCUSATE SODIUM 100 MG CAPSULE (FP) PO PRN (21:29)
[2022-05-15] MEDS: ACETAMINOPHEN 500 MG TABLET (FP) PO PRN (21:30)
[2022-05-16] MEDS: POLYETHYLENE GLYCOL (HEALTHYLAX) 3350 17 GM PACKET PO SCH (05:36)
[2022-05-16] MEDS ORDERED: POLYETHYLENE GLYCOL (HEALTHYLAX) 3350 17 GM PACKET PO SCH (08:57)
[2022-05-16] MEDS: TAMSULOSIN HCL 0.4 MG CAP PO SCH (10:07)
[2022-05-16] MEDS: CLOPIDOGREL BISULFATE 75 MG TABLET (FP) PO SCH (10:07)
[2022-05-16] MEDS: ASPIRIN 81 MG CHEWABLE TABLETS PO SCH (10:07)
[2022-05-16] MEDS: MAGNESIUM OXIDE 400 MG TABLET (FP) PO SCH (10:07)
[2022-05-16] MEDS: metoPROLOL SUCCINATE 25 MG TAB.SR.24H (FP) PO SCH (10:07)
[2022-05-16] MEDS: PANTOPRAZOLE 40 MG TABLET PO SCH (10:08)
[2022-05-16] MEDS: Methylnaltrexone Bromide 12 MG/0.6 ML KIT SQ SCH (11:52)
[2022-05-16 13:42] VITALS: BP 95/53; PULSE 94; RESP 20; TEMP 98.3
[2022-05-16 17:08] LABS: FREE KAPPA,SERUM 13.8 mg/L (3.3-19.4)
[2022-05-16 23:07] LABS: IMMUNOGLOBULIN D < 1.30 mg/dL (<14.11)
[2022-05-19 17:07] LABS: FREE KAP CHN UR 24.17 mg/L (1.17-86.46); KAPPA LAMBDA RATIO URIN 5.75 (1.83-14.26)
[2022-05-20 14:08] LABS: TOTAL PROTEIN, URINE 13.2 mg/dL (Not Estab.)
== END 2022-05-16 17:16 | disposition home or self-care (01) | DRG 418 ==
LOC: JER 23:41 → INTOOBSV 04-30 08:36 → JERBED 04-30 08:36 → UNDOADMOB 04-30 08:36 → JERBED 04-30 14:03 → J4S 04-30 18:54 → OBSVTOIN 05-05 09:05
PROVIDERS: ADMIT Internal Medicine; ATTEND Internal Medicine
PROC: 0FT44ZZ Resection of Gallbladder, Percutaneous Endoscopic Approach (ICD-10-PCS; principal; 2022-05-07 11:00)
PROC: 30233R1 Transfusion of Nonautologous Platelets into Peripheral Vein, Percutaneous Approach (ICD-10-PCS; 2022-05-08)
DX: K80.10 Calculus of gallbladder with chronic cholecystitis without obstruction (principal); E85.9 Amyloidosis, unspecified; I24.8 Other forms of acute ischemic heart disease; K56.7 Ileus, unspecified; K86.2 Cyst of pancreas; N17.9 Acute kidney failure, unspecified; K91.89 Other postprocedural complications and disorders of digestive system; I42.8 Other cardiomyopathies; R79.89 Other specified abnormal findings of blood chemistry; I25.10 Atherosclerotic heart disease of native coronary artery without angina pectoris; I10 Essential (primary) hypertension; E78.5 Hyperlipidemia, unspecified; K57.90 Diverticulosis of intestine, part unspecified, without perforation or abscess without bleeding; M51.36 Other intervertebral disc degeneration, lumbar region; E11.9 Type 2 diabetes mellitus without complications; K29.70 Gastritis, unspecified, without bleeding; H55.00 Unspecified nystagmus; K59.03 Drug induced constipation; T40.605A Adverse effect of unspecified narcotics, initial encounter; Y83.8 Other surgical procedures as the cause of abnormal reaction of the patient, or of later complication, without mention of misadventure at the time of the procedure; Z95.5 Presence of coronary angioplasty implant and graft
CPT/HCPCS: 0241U-QW; 36415; 36430; 36511; 71045-TC-FY; 71275-TC; 74019-TC-FY; 74177-TC; 74181-TC; 76705-TC; 76775-TC; 78226-TC; 80053; 80076; 81003; 82550; 82784; 82785; 82977; 83605; 83690; 83735; 83883; 84100; 84155; 84156; 84165; 84166; 84484; 85025; 85610; 85730; 86704; 86708; 86803; 86850; 86900; 86901; 87086; 87340; 87517; 88304-TC; 93005; 93010; 93306-TC; 94760; 97116-GP; 97161-GP; 99285-25; A9537; G0378; P9034; P9037; P9038; Q9967

== ENCOUNTER 2022-07-07 10:20 | Day surgery (SDC) | payer OTHER ==
[~2022-07-07 10:20] MED LIST: ACETAMINOPHEN 325 MG TABLET (FP) PO ONE; CYCLOPHOSPHAMIDE IVPB ONE; DEXAMETHASONE SODIUM PHOSPHATE 40 MG, DIPHENHYDRAMINE 50 MG in SODIUM CHLORIDE 100 ML IVPB ONE; SODIUM CHLORIDE 250 ML IV ONE; SODIUM CHLORIDE IVPB ONE
[2022-07-07 11:06] LABS: HEMATOCRIT 37.1 % (35.4-49); HEMOGLOBIN 12.8 GM/dL (11.7-16.9); MCH 26.5 pg (25.7-33.7); MCHC 34.4 g/dl (32.0-35.9); MEAN PLT VOLUME 9.5 fl (7.5-11.1); PLATELET COUNT 252 10^3/uL (134-434); RBC 4.82 M/mm3 (4.00-5.60); RDW 20.2 % (11.9-15.9)
[2022-07-07 11:22] LABS: ALBUMIN 4.2 g/dl (3.4-5.0); BLOOD UREA NITROGEN 38.6 mg/dL (7-18); CALCIUM 9.9 mg/dL (8.5-10.1)
[2022-07-07 11:23] LABS: MAGNESIUM 2.1 mg/dL (1.8-2.4)
[2022-07-07 11:24] LABS: URIC ACID 6.9 mg/dL (2.6-7.2)
[2022-07-07 11:25] LABS: BILIRUBIN,DIRECT 0.3 mg/dL (0.0-0.2); CREATININE 1.5 mg/dL (0.55-1.3)
[2022-07-07 11:26] LABS: TOT PROT 7.9 g/dl (6.4-8.2)
[2022-07-07 11:27] LABS: BILIRUBIN,TOTAL 0.8 mg/dL (0.2-1)
[2022-07-07] MEDS ORDERED: INSULIN (NOVOLOG) ASPART 100 UNITS/ML 10ML VIAL SQ ONE (11:46)
[2022-07-07 11:48] LABS: ANISOCYTOSIS 0; MACROCYTOSIS 0
[2022-07-07] MEDS ORDERED: DARATUMUMAB-HYALURONIDASE-FIHJ (FASPRO) 15 ML VIAL SQ ONE (12:00)
[2022-07-07] MEDS ORDERED: BORTEZOMIB 2.5 MG/ML SUB-Q INJECTION SQ ONE (12:15)
[2022-07-07] MEDS ORDERED: INSULIN (NOVOLOG MIX 70/30) 100 UNITS/ML MDV SQ ONE (12:56)
[2022-07-07] MEDS ORDERED: SODIUM CHLORIDE 250 ML IV ONE (13:00)
[2022-07-07 16:39] VITALS: TEMP 97.6
[2022-07-07 17:28] VITALS: BP 98/56; PULSE 70; RESP 18
== END 2022-07-07 17:32 | disposition home or self-care (01) ==
LOC: JONCCHEMO 10:20
PROVIDERS: ATTEND Internal Medicine Hematology & Oncology
DX: Z51.11 Encounter for antineoplastic chemotherapy (principal); E85.89 Other amyloidosis
CPT/HCPCS: 36415; 80048; 80076; 82962; 83615; 83735; 84550; 85025; 86704; 86803; 86850; 86900; 86901; 87340; 96367; 96401; 96413; 96415; J9041; J9070; J9144

== ENCOUNTER 2022-07-14 09:40 | Day surgery (SDC) | payer OTHER ==
[2022-07-14] MEDS ORDERED: ACETAMINOPHEN 325 MG TABLET (FP) PO ONE (10:00)
[2022-07-14] MEDS ORDERED: DEXAMETHASONE SODIUM PHOSPHATE 40 MG, DIPHENHYDRAMINE 50 MG in SODIUM CHLORIDE 100 ML IVPB ONE (10:00)
[2022-07-14] MEDS ORDERED: SODIUM CHLORIDE 250 ML IV ONE ×2 (10:00→11:30)
[2022-07-14] MEDS ORDERED: BORTEZOMIB 2.5 MG/ML SUB-Q INJECTION SQ ONE (10:30)
[2022-07-14] MEDS ORDERED: DARATUMUMAB-HYALURONIDASE-FIHJ (FASPRO) 15 ML VIAL SQ ONE (10:30)
[2022-07-14 10:50] LABS: BASO % 0.9 % (0-2.0); EOS % 2.2 % (0-4.5); HEMATOCRIT 34.7 % (35.4-49); HEMOGLOBIN 11.6 GM/dL (11.7-16.9); LYMPH % 13.9 % (8-40); MCH 25.6 pg (25.7-33.7); MCHC 33.6 g/dl (32.0-35.9); MEAN CELL VOLUME 76.3 fl (80-96); MEAN PLT VOLUME 8.6 fl (7.5-11.1); MONO % 7.9 % (3.8-10.2); NEUT % 75.1 % (42.8-82.8); PLATELET COUNT 286 10^3/uL (134-434); RBC 4.54 M/mm3 (4.00-5.60); WHITE BLOOD COUNT 8.2 K/mm3 (4.0-10.0)
[2022-07-14] MEDS ORDERED: SODIUM CHLORIDE IVPB ONE (11:00)
[2022-07-14] MEDS ORDERED: CYCLOPHOSPHAMIDE IVPB ONE (11:00)
[2022-07-14 11:16] LABS: MAGNESIUM 2.1 mg/dL (1.8-2.4)
[2022-07-14 11:18] LABS: BLOOD UREA NITROGEN 36.6 mg/dL (7-18); CALCIUM 9.7 mg/dL (8.5-10.1)
[2022-07-14 11:19] LABS: ALBUMIN 3.9 g/dl (3.4-5.0)
[2022-07-14 11:20] LABS: URIC ACID 4.6 mg/dL (2.6-7.2)
[2022-07-14 11:21] LABS: BILIRUBIN,DIRECT 0.3 mg/dL (0.0-0.2); CREATININE 1.4 mg/dL (0.55-1.3)
[2022-07-14 11:22] LABS: TOT PROT 7.3 g/dl (6.4-8.2)
[2022-07-14 11:23] LABS: BILIRUBIN,TOTAL 0.6 mg/dL (0.2-1)
[2022-07-14 17:31] VITALS: BP 128/80; PULSE 121; RESP 20; TEMP 97.9
== END 2022-07-14 16:30 | disposition home or self-care (01) ==
LOC: JONCCHEMO 09:40
PROVIDERS: ATTEND Internal Medicine Hematology & Oncology
DX: Z51.11 Encounter for antineoplastic chemotherapy (principal); E85.81 Light chain (AL) amyloidosis
CPT/HCPCS: 36415; 80048; 80076; 82962; 83615; 83735; 84550; 85025; 96367; 96401; 96413; 96415; J9041; J9070; J9144

== ENCOUNTER 2022-07-21 10:21 | Day surgery (SDC) | payer OTHER ==
[~2022-07-21 10:21] MED LIST changes: -CYCLOPHOSPHAMIDE IVPB ONE; -SODIUM CHLORIDE IVPB ONE
[2022-07-21] MEDS ORDERED: DARATUMUMAB-HYALURONIDASE-FIHJ (FASPRO) 15 ML VIAL SQ ONE (10:30)
[2022-07-21] MEDS ORDERED: BORTEZOMIB 2.5 MG/ML SUB-Q INJECTION SQ ONE (10:45)
[2022-07-21] MEDS ORDERED: SODIUM CHLORIDE IVPB ONE (11:00)
[2022-07-21] MEDS ORDERED: CYCLOPHOSPHAMIDE IVPB ONE (11:00)
[2022-07-21 11:12] LABS: BASO % 1.1 % (0-2.0); EOS % 0.8 % (0-4.5); HEMATOCRIT 35.3 % (35.4-49); LYMPH % 10.4 % (8-40); MCH 25.8 pg (25.7-33.7); MCHC 34.1 g/dl (32.0-35.9); MEAN CELL VOLUME 75.7 fl (80-96); MEAN PLT VOLUME 8.9 fl (7.5-11.1); MONO % 6.2 % (3.8-10.2); NEUT % 81.5 % (42.8-82.8); PLATELET COUNT 275 10^3/uL (134-434); RBC 4.67 M/mm3 (4.00-5.60); RDW 19.8 % (11.9-15.9); WHITE BLOOD COUNT 7.5 K/mm3 (4.0-10.0)
[2022-07-21 11:26] LABS: CALCIUM 9.5 mg/dL (8.5-10.1)
[2022-07-21 11:27] LABS: BLOOD UREA NITROGEN 32.7 mg/dL (7-18); MAGNESIUM 2.2 mg/dL (1.8-2.4)
[2022-07-21 11:30] LABS: CREATININE 1.4 mg/dL (0.55-1.3)
[2022-07-21 11:32] LABS: BILIRUBIN,TOTAL 0.7 mg/dL (0.2-1); TOT PROT 7.3 g/dl (6.4-8.2); URIC ACID 4.7 mg/dL (2.6-7.2)
[2022-07-21] MEDS ORDERED: SODIUM CHLORIDE 250 ML IV ONE (12:00)
[2022-07-21] MEDS ORDERED: INSULIN (NOVOLOG) ASPART 100 UNITS/ML 10ML VIAL SQ ONE (12:23)
[2022-07-21 17:05] VITALS: BP 123/72; PULSE 103; RESP 19; TEMP 97.9
== END 2022-07-21 16:50 | disposition home or self-care (01) ==
LOC: JONCCHEMO 10:21
PROVIDERS: ATTEND Internal Medicine Hematology & Oncology
DX: Z51.11 Encounter for antineoplastic chemotherapy (principal); E85.81 Light chain (AL) amyloidosis
CPT/HCPCS: 36415; 80053; 83615; 83735; 84550; 85025; 96367; 96401; 96413; J9041; J9070; J9144

== ENCOUNTER 2022-07-28 09:46 | Day surgery (SDC) | payer OTHER ==
[~2022-07-28 09:46] MED LIST changes: -ACETAMINOPHEN 325 MG TABLET (FP) PO ONE; -DEXAMETHASONE SODIUM PHOSPHATE 40 MG, DIPHENHYDRAMINE 50 MG in SODIUM CHLORIDE 100 ML IVPB ONE; +LIDOCAINE 2.5%/PRILOCAINE 2.5% 30 GRAM TUBE TP ONE
[2022-07-28] MEDS ORDERED: DEXAMETHASONE SODIUM PHOSPHATE 40 MG, DIPHENHYDRAMINE 50 MG in SODIUM CHLORIDE 100 ML IVPB ONE (10:00)
[2022-07-28] MEDS ORDERED: ACETAMINOPHEN 325 MG TABLET (FP) PO ONE (10:00)
[2022-07-28 10:13] LABS: HEMOGLOBIN 10.3 GM/dL (11.7-16.9); MCHC 33.3 g/dl (32.0-35.9); MEAN CELL VOLUME 87.1 fl (80-96); MEAN PLT VOLUME 8.2 fl (7.5-11.1); PLATELET COUNT 300 10^3/uL (134-434); RBC 3.56 M/mm3 (4.00-5.60); RDW 19.2 % (11.9-15.9)
[2022-07-28 10:30] LABS: ANISOCYTOSIS 2+; MACROCYTOSIS 1+; OVALOCYTE 1+
[2022-07-28] MEDS ORDERED: CYCLOPHOSPHAMIDE IVPB ONE (10:30)
[2022-07-28] MEDS ORDERED: SODIUM CHLORIDE IVPB ONE (10:30)
[2022-07-28] MEDS ORDERED: DARATUMUMAB-HYALURONIDASE-FIHJ (FASPRO) 15 ML VIAL SQ ONE (10:30)
[2022-07-28 10:34] LABS: MAGNESIUM 2.1 mg/dL (1.8-2.4)
[2022-07-28 10:35] LABS: BLOOD UREA NITROGEN 17.5 mg/dL (7-18)
[2022-07-28 10:37] LABS: CREATININE 0.9 mg/dL (0.55-1.3); URIC ACID 4.6 mg/dL (2.6-7.2); WHITE BLOOD COUNT 1.5 K/mm3 (4.0-10.0)
[2022-07-28 10:38] LABS: BILIRUBIN,DIRECT 0.1 mg/dL (0.0-0.2)
[2022-07-28 10:39] LABS: TOT PROT 6.3 g/dl (6.4-8.2)
[2022-07-28 10:40] LABS: BILIRUBIN,TOTAL 0.3 mg/dL (0.2-1)
[2022-07-28 10:44] LABS: ALBUMIN 2.8 g/dl (3.4-5.0)
[2022-07-28] MEDS ORDERED: TBO-FILGRASTIM 480 MCG/0.8 ML DISP.SYRIN SQ ONE (11:00)
[2022-07-28] MEDS ORDERED: TBO-FILGRASTIM 300 MCG/0.5 ML DISP.SYRINGE SQ ONE (11:00)
[2022-07-28] MEDS ORDERED: SODIUM CHLORIDE 250 ML IV ONE (12:30)
[2022-07-28 17:29] VITALS: BP 116/70; PULSE 100; RESP 20; TEMP 97.6
== END 2022-07-28 11:30 | disposition home or self-care (01) ==
LOC: JONCCHEMO 09:46
PROVIDERS: ATTEND Internal Medicine Hematology & Oncology
PROC: 3E013GC Introduction of Other Therapeutic Substance into Subcutaneous Tissue, Percutaneous Approach (ICD-10-PCS; principal; 2022-07-28)
DX: E85.81 Light chain (AL) amyloidosis (principal); Z76.89 Persons encountering health services in other specified circumstances
CPT/HCPCS: 36415; 80048; 80076; 83615; 83735; 84550; 85025; 96372; J1447

== ENCOUNTER 2022-07-29 10:34 | Day surgery (SDC) | payer OTHER ==
[~2022-07-29 10:34] MED LIST changes: -LIDOCAINE 2.5%/PRILOCAINE 2.5% 30 GRAM TUBE TP ONE; -SODIUM CHLORIDE 250 ML IV ONE; +TBO-FILGRASTIM 300 MCG/0.5 ML DISP.SYRINGE SQ ONE
[2022-07-29 16:27] VITALS: BP 113/58; PULSE 105; RESP 18; TEMP 97.8
== END 2022-07-29 11:00 | disposition home or self-care (01) ==
LOC: JONCCHEMO 10:34
PROVIDERS: ATTEND Internal Medicine Hematology & Oncology
PROC: 3E013GC Introduction of Other Therapeutic Substance into Subcutaneous Tissue, Percutaneous Approach (ICD-10-PCS; principal; 2022-07-29)
DX: E85.81 Light chain (AL) amyloidosis (principal); Z76.89 Persons encountering health services in other specified circumstances
CPT/HCPCS: 96372; J1447

== ENCOUNTER 2022-07-30 22:39 | Inpatient (IN) | payer OTHER ==
[2022-07-30 22:50] VITALS: BMI 25.4
[2022-07-31] MEDS ORDERED: SODIUM CHLORIDE 0.9% 1000 ML INFUS.BAG IV ONE (02:27)
[2022-07-31] MEDS ORDERED: VANCOMYCIN 1 GM in D5W (PRE-DOCKED) 1,000 MG/250 ML (RESTRICTED TO ID ONLY IVPB ONE (02:27)
[2022-07-31] MEDS ORDERED: CEFEPIME HCL/D5W 2 GM/50 ML BAG IVPB ONE (02:28)
[2022-07-31 02:45] LABS: EOS % 0.6 % (0-4.5); HEMATOCRIT 31.7 % (35.4-49); HEMOGLOBIN 10.6 GM/dL (11.7-16.9); LYMPH % 6.5 % (8-40); MCH 25.7 pg (25.7-33.7); MCHC 33.5 g/dl (32.0-35.9); MEAN CELL VOLUME 76.9 fl (80-96); MEAN PLT VOLUME 8.8 fl (7.5-11.1); MONO % 3.4 % (3.8-10.2); NEUT % 88.5 % (42.8-82.8); PH,URINE 6.5 (5.0-8.0); PLATELET COUNT 236 10^3/uL (134-434); RBC 4.12 M/mm3 (4.00-5.60); RDW 20.4 % (11.9-15.9); URINE APPEARANCE CLEAR; URINE BILIRUBIN NEGATIVE (NEGATIVE); URINE COLOR YELLOW; URINE GLUCOSE (UA) 3+ (NEGATIVE); URINE KETONE NEGATIVE (NEGATIVE); URINE LEUK ESTERASE NEGATIVE (NEGATIVE); URINE NITRITE NEGATIVE (NEGATIVE); URINE PROTEIN NEGATIVE (NEGATIVE); URINE UROBILINOGEN 0.2 mg/dL (0.2-1.0); WHITE BLOOD COUNT 12.2 K/mm3 (4.0-10.0)
[2022-07-31] MEDS ORDERED: CEFEPIME 2 GM/100 ML BAG IVPB ONE (02:47)
[2022-07-31] MEDS ORDERED: VANCOMYCIN/WATER FOR INJ (PEG) 1,000 MG/200 ML BAG IVPB ONE (02:47)
[2022-07-31 02:50] LABS: INR 1.51 (0.83-1.09); PROTHROMBIN TIME (PATIENT) 17.5 SEC (9.7-13.0)
[2022-07-31 02:53] LABS: ACTIVATED PTT 38.7 SECONDS (25.2-36.5)
[2022-07-31 03:02] LABS: BLOOD UREA NITROGEN 24.8 mg/dL (7-18); CALCIUM 9.3 mg/dL (8.5-10.1)
[2022-07-31 03:05] LABS: CREATININE 1.4 mg/dL (0.55-1.3)
[2022-07-31 03:07] LABS: BILIRUBIN,TOTAL 0.8 mg/dL (0.2-1); TOT PROT 6.9 g/dl (6.4-8.2)
[2022-07-31 03:37] LABS: ALBUMIN 3.9 g/dl (3.4-5.0)
[2022-07-31] MEDS ORDERED: DOCUSATE SODIUM 100 MG CAPSULE (FP) PO PRN (11:29)
[2022-07-31] MEDS: PIPERACILLIN/TAZOB 3.375 GM 3.375 GM in DEXTROSE 5%-WATER - 50 ML IVPB SCH ×2 (15:15→19:14)
[2022-07-31] MEDS: MAGNESIUM OXIDE 400 MG TABLET (FP) PO SCH (21:51)
[2022-07-31] MEDS: FAMOTIDINE 20 MG TABLET PO SCH (21:51)
[2022-08-01] MEDS: PIPERACILLIN/TAZOB 3.375 GM 3.375 GM in DEXTROSE 5%-WATER - 50 ML IVPB SCH ×3 (01:10→17:24)
[2022-08-01] MEDS ORDERED: oxyCODONE HCL 5 MG TABLET PO ONE (01:33)
[2022-08-01 06:29] LABS: BASO % 2.4 % (0-2.0); EOS % 1.3 % (0-4.5); HEMATOCRIT 31.1 % (35.4-49); HEMOGLOBIN 10.7 GM/dL (11.7-16.9); LYMPH % 11.7 % (8-40); MCHC 34.4 g/dl (32.0-35.9); MEAN CELL VOLUME 75.7 fl (80-96); MEAN PLT VOLUME 8.8 fl (7.5-11.1); MONO % 8.5 % (3.8-10.2); NEUT % 76.1 % (42.8-82.8); PLATELET COUNT 225 10^3/uL (134-434); RBC 4.11 M/mm3 (4.00-5.60); RDW 20.4 % (11.9-15.9); WHITE BLOOD COUNT 7.6 K/mm3 (4.0-10.0)
[2022-08-01 06:56] LABS: ALBUMIN 3.4 g/dl (3.4-5.0); CALCIUM 9.2 mg/dL (8.5-10.1)
[2022-08-01 06:57] LABS: BLOOD UREA NITROGEN 20.1 mg/dL (7-18)
[2022-08-01 06:59] LABS: CREATININE 1.2 mg/dL (0.55-1.3)
[2022-08-01 07:01] LABS: BILIRUBIN,TOTAL 1.1 mg/dL (0.2-1); TOT PROT 6.2 g/dl (6.4-8.2)
[2022-08-01] MEDS: TAMSULOSIN HCL 0.4 MG CAP PO SCH (08:29)
[2022-08-01] MEDS: DAPAGLIFLOZIN PROPANEDIOL 10 MG PO SCH (09:10)
[2022-08-01] MEDS: MAGNESIUM OXIDE 400 MG TABLET (FP) PO SCH ×2 (09:10→22:28)
[2022-08-01] MEDS: FAMOTIDINE 20 MG TABLET PO SCH ×2 (09:10→22:28)
[2022-08-01] MEDS: metoPROLOL SUCCINATE 25 MG TAB.SR.24H (FP) PO SCH (09:10)
[2022-08-01] MEDS: ASPIRIN 81 MG CHEWABLE TABLETS PO SCH (09:10)
[2022-08-01] MEDS: CLOPIDOGREL BISULFATE 75 MG TABLET (FP) PO SCH (09:10)
[2022-08-01] MEDS ORDERED: SENNOSIDES/DOCUSATE COMBO (SENNA PLUS) TABLET (UD) PO PRN (19:29)
[2022-08-01] MEDS ORDERED: DOXEPIN HCL 50 MG CAPSULE PO ONE (19:31)
[2022-08-01] MEDS: MELATONIN 5 MG TABLETS PO PRN (22:27)
[2022-08-01] MEDS: ATORVASTATIN CA 80 MG TABLET (FP) PO SCH (22:28)
[2022-08-02] MEDS: PIPERACILLIN/TAZOB 3.375 GM 3.375 GM in DEXTROSE 5%-WATER - 50 ML IVPB SCH ×3 (02:35→17:52)
[2022-08-02] MEDS: POLYETHYLENE GLYCOL (HEALTHYLAX) 3350 17 GM PACKET PO SCH (09:25)
[2022-08-02] MEDS: DAPAGLIFLOZIN PROPANEDIOL 10 MG PO SCH (09:25)
[2022-08-02] MEDS: ASPIRIN 81 MG CHEWABLE TABLETS PO SCH (09:25)
[2022-08-02] MEDS: TAMSULOSIN HCL 0.4 MG CAP PO SCH (09:25)
[2022-08-02] MEDS: metoPROLOL SUCCINATE 25 MG TAB.SR.24H (FP) PO SCH (09:27)
[2022-08-02] MEDS: MAGNESIUM OXIDE 400 MG TABLET (FP) PO SCH ×2 (09:27→22:14)
[2022-08-02] MEDS: FAMOTIDINE 20 MG TABLET PO SCH ×2 (09:27→22:14)
[2022-08-02] MEDS: CLOPIDOGREL BISULFATE 75 MG TABLET (FP) PO SCH (09:27)
[2022-08-02 13:09] LABS: EOS % 2.3 % (0-4.5); HEMATOCRIT 32.9 % (35.4-49); HEMOGLOBIN 11.1 GM/dL (11.7-16.9); MCH 25.4 pg (25.7-33.7); MCHC 33.6 g/dl (32.0-35.9); MEAN CELL VOLUME 75.6 fl (80-96); MEAN PLT VOLUME 8.7 fl (7.5-11.1); MONO % 14.7 % (3.8-10.2); PLATELET COUNT 238 10^3/uL (134-434); RBC 4.36 M/mm3 (4.00-5.60); RDW 20.6 % (11.9-15.9); WHITE BLOOD COUNT 4.9 K/mm3 (4.0-10.0)
[2022-08-02 13:40] LABS: ANISOCYTOSIS 2+; MACROCYTOSIS 1+
[2022-08-02] MEDS: ATORVASTATIN CA 80 MG TABLET (FP) PO SCH (22:14)
[2022-08-02] MEDS: MELATONIN 5 MG TABLETS PO PRN (22:14)
[2022-08-02 23:32] VITALS: TEMP 97.6
[2022-08-03] MEDS: CLOPIDOGREL BISULFATE 75 MG TABLET (FP) PO SCH (09:39)
[2022-08-03] MEDS: metoPROLOL SUCCINATE 25 MG TAB.SR.24H (FP) PO SCH (09:39)
[2022-08-03] MEDS: MAGNESIUM OXIDE 400 MG TABLET (FP) PO SCH (09:39)
[2022-08-03] MEDS: ASPIRIN 81 MG CHEWABLE TABLETS PO SCH (09:39)
[2022-08-03] MEDS: FAMOTIDINE 20 MG TABLET PO SCH (09:39)
[2022-08-03] MEDS: TAMSULOSIN HCL 0.4 MG CAP PO SCH (09:39)
[2022-08-03] MEDS: DAPAGLIFLOZIN PROPANEDIOL 10 MG PO SCH (09:40)
[2022-08-03] MEDS: POLYETHYLENE GLYCOL (HEALTHYLAX) 3350 17 GM PACKET PO SCH (09:40)
[2022-08-03 10:58] VITALS: BP 117/63; PULSE 81; RESP 18
== END 2022-08-03 14:50 | disposition home or self-care (01) | DRG 864 ==
LOC: JER 22:39 → JERBED 07-31 04:00 → J4W 07-31 08:43
PROVIDERS: ADMIT Student in an Organized Health Care Education/Training Program; ATTEND Internal Medicine
DX: R50.9 Fever, unspecified (principal); N17.9 Acute kidney failure, unspecified; I24.8 Other forms of acute ischemic heart disease; E85.4 Organ-limited amyloidosis; K77 Liver disorders in diseases classified elsewhere; I43 Cardiomyopathy in diseases classified elsewhere; I25.10 Atherosclerotic heart disease of native coronary artery without angina pectoris; E11.9 Type 2 diabetes mellitus without complications; E78.5 Hyperlipidemia, unspecified; R79.89 Other specified abnormal findings of blood chemistry; Z92.21 Personal history of antineoplastic chemotherapy; D64.9 Anemia, unspecified; E11.22 Type 2 diabetes mellitus with diabetic chronic kidney disease; I12.9 Hypertensive chronic kidney disease with stage 1 through stage 4 chronic kidney disease, or unspecified chronic kidney disease; N18.9 Chronic kidney disease, unspecified; E86.0 Dehydration; D70.9 Neutropenia, unspecified
CPT/HCPCS: 0241U-QW; 36415; 71046-TC-FY; 80053; 81003; 82962; 83605; 84484; 85025; 85610; 85730; 87040; 87086; 93005; 93010; 99285-25

== ENCOUNTER 2022-08-04 10:00 | Day surgery (SDC) | payer OTHER ==
[~2022-08-04 10:00] MED LIST changes: +ACETAMINOPHEN 325 MG TABLET (FP) PO ONE; +DEXAMETHASONE SODIUM PHOSPHATE 40 MG, DIPHENHYDRAMINE 50 MG in SODIUM CHLORIDE 100 ML IVPB ONE; +SODIUM CHLORIDE 250 ML IV ONE; -TBO-FILGRASTIM 300 MCG/0.5 ML DISP.SYRINGE SQ ONE
[2022-08-04] MEDS ORDERED: SODIUM CHLORIDE IVPB ONE ×2 (10:30→13:00)
[2022-08-04] MEDS ORDERED: DARATUMUMAB-HYALURONIDASE-FIHJ (FASPRO) 15 ML VIAL SQ ONE (10:30)
[2022-08-04] MEDS ORDERED: CYCLOPHOSPHAMIDE IVPB ONE ×2 (10:30→13:00)
[2022-08-04 10:44] LABS: BASO % 1.6 % (0-2.0); EOS % 1.2 % (0-4.5); HEMATOCRIT 35.9 % (35.4-49); HEMOGLOBIN 11.9 GM/dL (11.7-16.9); LYMPH % 16.8 % (8-40); MCH 25.4 pg (25.7-33.7); MCHC 33.1 g/dl (32.0-35.9); MEAN CELL VOLUME 76.5 fl (80-96); MEAN PLT VOLUME 8.3 fl (7.5-11.1); MONO % 8.8 % (3.8-10.2); NEUT % 71.6 % (42.8-82.8); PLATELET COUNT 276 10^3/uL (134-434); RDW 21.1 % (11.9-15.9); WHITE BLOOD COUNT 4.8 K/mm3 (4.0-10.0)
[2022-08-04 10:54] LABS: POTASSIUM 4.4 mmol/L (3.5-5.1)
[2022-08-04 10:56] LABS: MAGNESIUM 2.2 mg/dL (1.8-2.4)
[2022-08-04 10:59] LABS: CREATININE 1.4 mg/dL (0.55-1.3); URIC ACID 5.1 mg/dL (2.6-7.2)
[2022-08-04] MEDS ORDERED: BORTEZOMIB 2.5 MG/ML SUB-Q INJECTION SQ ONE (11:00)
[2022-08-04] MEDS ORDERED: SODIUM CHLORIDE 250 ML IV ONE (11:00)
[2022-08-04 11:01] LABS: CALCIUM 9.8 mg/dL (8.5-10.1); TOT PROT 7.3 g/dl (6.4-8.2)
[2022-08-04 11:02] LABS: BLOOD UREA NITROGEN 28.9 mg/dL (7-18)
[2022-08-04 11:05] LABS: BILIRUBIN,DIRECT 0.4 mg/dL (0.0-0.2)
[2022-08-04 11:07] LABS: BILIRUBIN,TOTAL 0.8 mg/dL (0.2-1)
[2022-08-04] MEDS ORDERED: INSULIN (NOVOLOG) ASPART 100 UNITS/ML 10ML VIAL SQ ONE (11:42)
[2022-08-04 16:54] VITALS: TEMP 97.9
[2022-08-04 17:08] VITALS: BP 127/82; PULSE 83; RESP 18
== END 2022-08-04 17:30 | disposition home or self-care (01) ==
LOC: JONCCHEMO 10:00
PROVIDERS: ATTEND Internal Medicine Hematology & Oncology
DX: E85.81 Light chain (AL) amyloidosis (principal)
CPT/HCPCS: 36415; 80048; 80076; 83615; 83735; 84550; 85025; 96367; 96401; 96413; J9041; J9070; J9144

== ENCOUNTER 2022-08-11 09:42 | Day surgery (SDC) | payer OTHER ==
[2022-08-11] MEDS ORDERED: DARATUMUMAB-HYALURONIDASE-FIHJ (FASPRO) 15 ML VIAL SQ ONE (10:00)
[2022-08-11] MEDS ORDERED: BORTEZOMIB 2.5 MG/ML SUB-Q INJECTION SQ ONE ×2 (10:15→11:00)
[2022-08-11] MEDS ORDERED: SODIUM CHLORIDE IVPB ONE (10:30)
[2022-08-11] MEDS ORDERED: CYCLOPHOSPHAMIDE IVPB ONE (10:30)
[2022-08-11] MEDS ORDERED: SODIUM CHLORIDE 250 ML IV ONE (11:00)
[2022-08-11 11:03] LABS: BASO % 1.6 % (0-2.0); EOS % 1.4 % (0-4.5); HEMATOCRIT 32.3 % (35.4-49); HEMOGLOBIN 10.9 GM/dL (11.7-16.9); LYMPH % 15.9 % (8-40); MCH 25.8 pg (25.7-33.7); MCHC 33.7 g/dl (32.0-35.9); MEAN CELL VOLUME 76.7 fl (80-96); MEAN PLT VOLUME 9.2 fl (7.5-11.1); MONO % 10.8 % (3.8-10.2); NEUT % 70.3 % (42.8-82.8); PLATELET COUNT 249 10^3/uL (134-434); RBC 4.22 M/mm3 (4.00-5.60); RDW 20.5 % (11.9-15.9); WHITE BLOOD COUNT 5.2 K/mm3 (4.0-10.0)
[2022-08-11 11:21] LABS: POTASSIUM 4.7 mmol/L (3.5-5.1)
[2022-08-11 11:24] LABS: BLOOD UREA NITROGEN 30.9 mg/dL (7-18); CALCIUM 9.6 mg/dL (8.5-10.1); MAGNESIUM 2.3 mg/dL (1.8-2.4)
[2022-08-11 11:27] LABS: BILIRUBIN,DIRECT 0.3 mg/dL (0.0-0.2); CREATININE 1.2 mg/dL (0.55-1.3)
[2022-08-11 11:29] LABS: BILIRUBIN,TOTAL 0.8 mg/dL (0.2-1)
[2022-08-11 11:30] LABS: ANISOCYTOSIS 2+; HOWELL-JOLLY BODIES 1+; MACROCYTOSIS 1+; OVALOCYTE 1+
[2022-08-11 11:52] LABS: ERYTHROCYTE SEDIMENTATION RATE 34 mm/hr (0-20)
[2022-08-11 16:16] VITALS: TEMP 97.9
[2022-08-11 16:46] VITALS: BP 120/69; PULSE 81; RESP 18
[2022-08-11] MEDS ORDERED: PORTA CATH FLUSH 10 ML IVPUSH PRN (16:46)
[2022-08-12 17:07] LABS: FREE KAPPA,SERUM 7.1 mg/L (3.3-19.4)
[2022-08-13 07:07] LABS: FREE KAP CHN UR 9.07 mg/L (1.17-86.46); KAPPA LAMBDA RATIO URIN 4.12 (1.83-14.26)
== END 2022-08-11 16:30 | disposition home or self-care (01) ==
LOC: JONCCHEMO 09:42 → J7W 10:07 → JONCCHEMO 16:30
PROVIDERS: ATTEND Internal Medicine Hematology & Oncology
DX: E85.81 Light chain (AL) amyloidosis (principal)
CPT/HCPCS: 36415; 80048; 80076; 82784; 83615; 83735; 83883; 84155; 84156; 84157; 84165; 85025; 85651; 86140; 96367; 96401; 96413; 96415; J9041; J9070; J9144

== ENCOUNTER 2022-08-18 10:07 | Day surgery (SDC) | payer OTHER ==
[2022-08-18] MEDS ORDERED: BORTEZOMIB 2.5 MG/ML SUB-Q INJECTION SQ ONE (10:30)
[2022-08-18] MEDS ORDERED: DARATUMUMAB-HYALURONIDASE-FIHJ (FASPRO) 15 ML VIAL SQ ONE (10:30)
[2022-08-18] MEDS ORDERED: SODIUM CHLORIDE IVPB ONE (10:45)
[2022-08-18] MEDS ORDERED: CYCLOPHOSPHAMIDE IVPB ONE (10:45)
[2022-08-18 11:26] LABS: BASO % 2.5 % (0-2.0); HEMATOCRIT 34.2 % (35.4-49); HEMOGLOBIN 11.5 GM/dL (11.7-16.9); LYMPH % 18.5 % (8-40); MCHC 33.7 g/dl (32.0-35.9); MEAN CELL VOLUME 77.2 fl (80-96); MEAN PLT VOLUME 9.6 fl (7.5-11.1); MONO % 10.4 % (3.8-10.2); NEUT % 67.6 % (42.8-82.8); PLATELET COUNT 203 10^3/uL (134-434); RBC 4.43 M/mm3 (4.00-5.60); RDW 21.8 % (11.9-15.9); WHITE BLOOD COUNT 4.8 K/mm3 (4.0-10.0)
[2022-08-18 11:33] LABS: URINE APPEARANCE CLEAR; URINE BILIRUBIN NEGATIVE (NEGATIVE); URINE COLOR YELLOW; URINE GLUCOSE (UA) 3+ (NEGATIVE); URINE KETONE NEGATIVE (NEGATIVE); URINE LEUK ESTERASE NEGATIVE (NEGATIVE); URINE NITRITE NEGATIVE (NEGATIVE); URINE PROTEIN NEGATIVE (NEGATIVE); URINE UROBILINOGEN 0.2 mg/dL (0.2-1.0)
[2022-08-18 11:43] LABS: POTASSIUM 4.6 mmol/L (3.5-5.1)
[2022-08-18 11:45] LABS: ALBUMIN 3.9 g/dl (3.4-5.0); BLOOD UREA NITROGEN 23.8 mg/dL (7-18); CALCIUM 9.2 mg/dL (8.5-10.1)
[2022-08-18 11:46] LABS: MAGNESIUM 2.3 mg/dL (1.8-2.4)
[2022-08-18 11:47] LABS: ANISOCYTOSIS 3+; MACROCYTOSIS 0
[2022-08-18 11:48] LABS: BILIRUBIN,DIRECT 0.2 mg/dL (0.0-0.2); CREATININE 1.2 mg/dL (0.55-1.3); URIC ACID 3.9 mg/dL (2.6-7.2)
[2022-08-18 11:50] LABS: BILIRUBIN,TOTAL 0.5 mg/dL (0.2-1); TOT PROT 6.8 g/dl (6.4-8.2)
[2022-08-18] MEDS ORDERED: SODIUM CHLORIDE 250 ML IV ONE (12:00)
[2022-08-18 16:56] VITALS: BP 117/58; PULSE 83; RESP 18; TEMP 98.1
[2022-08-18] MEDS ORDERED: PORTA CATH FLUSH 10 ML IVPUSH PRN (16:56)
== END 2022-08-18 17:00 | disposition home or self-care (01) ==
LOC: JONCCHEMO 10:07 → J7W 10:08 → JONCCHEMO 17:00
PROVIDERS: ATTEND Internal Medicine Hematology & Oncology
DX: E85.81 Light chain (AL) amyloidosis (principal)
CPT/HCPCS: 36415; 80048; 80076; 81003; 83615; 83735; 84153; 84550; 85025; 87086; 96367; 96401; 96413; 96415; J9041; J9070; J9144

== ENCOUNTER 2022-08-25 09:52 | Day surgery (SDC) | payer OTHER ==
[~2022-08-25 09:52] MED LIST changes: -ACETAMINOPHEN 325 MG TABLET (FP) PO ONE; -DEXAMETHASONE SODIUM PHOSPHATE 40 MG, DIPHENHYDRAMINE 50 MG in SODIUM CHLORIDE 100 ML IVPB ONE
[2022-08-25] MEDS ORDERED: ACETAMINOPHEN 325 MG TABLET (FP) PO ONE (10:00)
[2022-08-25] MEDS ORDERED: DEXAMETHASONE SODIUM PHOSPHATE 40 MG, DIPHENHYDRAMINE 50 MG in SODIUM CHLORIDE 100 ML IVPB ONE (10:00)
[2022-08-25] MEDS ORDERED: SODIUM CHLORIDE IVPB ONE (10:30)
[2022-08-25] MEDS ORDERED: DARATUMUMAB-HYALURONIDASE-FIHJ (FASPRO) 15 ML VIAL SQ ONE (10:30)
[2022-08-25] MEDS ORDERED: CYCLOPHOSPHAMIDE IVPB ONE (10:30)
[2022-08-25 10:50] LABS: BASO % 1.5 % (0-2.0); EOS % 0.3 % (0-4.5); HEMOGLOBIN 11.2 GM/dL (11.7-16.9); MCH 26.9 pg (25.7-33.7); MCHC 34.9 g/dl (32.0-35.9); MEAN PLT VOLUME 9.5 fl (7.5-11.1); MONO % 8.2 % (3.8-10.2); PLATELET COUNT 198 10^3/uL (134-434); RBC 4.15 M/mm3 (4.00-5.60); RDW 21.8 % (11.9-15.9); WHITE BLOOD COUNT 6.4 K/mm3 (4.0-10.0)
[2022-08-25 11:12] LABS: POTASSIUM 4.5 mmol/L (3.5-5.1)
[2022-08-25 11:16] LABS: CALCIUM 9.9 mg/dL (8.5-10.1); MAGNESIUM 2.2 mg/dL (1.8-2.4)
[2022-08-25 11:17] LABS: ALBUMIN 3.9 g/dl (3.4-5.0); BLOOD UREA NITROGEN 32.9 mg/dL (7-18)
[2022-08-25 11:19] LABS: BILIRUBIN,DIRECT 0.2 mg/dL (0.0-0.2); CREATININE 1.3 mg/dL (0.55-1.3); URIC ACID 4.6 mg/dL (2.6-7.2)
[2022-08-25 11:21] LABS: TOT PROT 6.7 g/dl (6.4-8.2)
[2022-08-25 11:22] LABS: BILIRUBIN,TOTAL 0.5 mg/dL (0.2-1)
[2022-08-25 11:45] LABS: ANISOCYTOSIS 2+; HOWELL-JOLLY BODIES 1+; MACROCYTOSIS 1+; OVALOCYTE 1+; TARGET CELLS 1+
[2022-08-25] MEDS ORDERED: SODIUM CHLORIDE 250 ML IV ONE (12:30)
[2022-08-25 16:36] VITALS: BP 118/52; PULSE 111; RESP 20; TEMP 97.8
[2022-08-25] MEDS ORDERED: PORTA CATH FLUSH 10 ML IVPUSH PRN (16:37)
== END 2022-08-25 14:45 | disposition home or self-care (01) ==
LOC: JONCCHEMO 09:52 → J7W 09:55 → JONCCHEMO 14:45
PROVIDERS: ATTEND Internal Medicine Hematology & Oncology
DX: E85.4 Organ-limited amyloidosis (principal); E85.89 Other amyloidosis
CPT/HCPCS: 36415; 80048; 80076; 83615; 83735; 84550; 85025; 96401; 96413; 96415; J9070; J9144

== ENCOUNTER 2022-09-02 10:06 | Day surgery (SDC) | payer OTHER ==
[2022-09-02] MEDS ORDERED: SODIUM CHLORIDE 250 ML IV ONE ×2 (10:30→12:15)
[2022-09-02] MEDS ORDERED: BORTEZOMIB 2.5 MG/ML SUB-Q INJECTION SQ ONE ×2 (11:00→11:30)
[2022-09-02] MEDS ORDERED: DEXAMETHASONE SODIUM PHOSPHATE 40 MG, DIPHENHYDRAMINE 50 MG in SODIUM CHLORIDE 100 ML IVPB ONE (11:00)
[2022-09-02] MEDS ORDERED: ACETAMINOPHEN 325 MG TABLET (FP) PO ONE (11:00)
[2022-09-02 11:02] LABS: POTASSIUM 4.5 mmol/L (3.5-5.1)
[2022-09-02 11:04] LABS: MAGNESIUM 2.3 mg/dL (1.8-2.4)
[2022-09-02 11:05] LABS: ALBUMIN 4.1 g/dl (3.4-5.0); BLOOD UREA NITROGEN 34.1 mg/dL (7-18); CALCIUM 9.5 mg/dL (8.5-10.1)
[2022-09-02 11:08] LABS: BILIRUBIN,DIRECT 0.2 mg/dL (0.0-0.2); CREATININE 1.5 mg/dL (0.55-1.3)
[2022-09-02 11:09] LABS: TOT PROT 6.8 g/dl (6.4-8.2)
[2022-09-02 11:14] LABS: URIC ACID 4.3 mg/dL (2.6-7.2)
[2022-09-02 11:23] LABS: BILIRUBIN,TOTAL 0.7 mg/dL (0.2-1)
[2022-09-02] MEDS ORDERED: DARATUMUMAB-HYALURONIDASE-FIHJ (FASPRO) 15 ML VIAL SQ ONE (11:30)
[2022-09-02 11:42] LABS: BASO % 1.5 % (0-2.0); EOS % 0.5 % (0-4.5); HEMATOCRIT 33.9 % (35.4-49); HEMOGLOBIN 11.2 GM/dL (11.7-16.9); LYMPH % 9.5 % (8-40); MCH 25.8 pg (25.7-33.7); MEAN CELL VOLUME 78.1 fl (80-96); MEAN PLT VOLUME 8.3 fl (7.5-11.1); MONO % 7.9 % (3.8-10.2); NEUT % 80.6 % (42.8-82.8); PLATELET COUNT 197 10^3/uL (134-434); RBC 4.34 M/mm3 (4.00-5.60); RDW 22.6 % (11.9-15.9)
[2022-09-02] MEDS ORDERED: CYCLOPHOSPHAMIDE IVPB ONE (11:45)
[2022-09-02] MEDS ORDERED: SODIUM CHLORIDE IVPB ONE (11:45)
[2022-09-02 12:22] LABS: ANISOCYTOSIS 1+; MACROCYTOSIS 1+
[2022-09-02] MEDS ORDERED: PORTA CATH FLUSH 10 ML IVPUSH PRN (16:38)
[2022-09-02 16:39] VITALS: BP 125/69; PULSE 87; RESP 18; TEMP 97.6
[2022-09-03 18:12] LABS: FREE KAPPA,SERUM 6.7 mg/L (3.3-19.4)
[2022-09-04 08:08] LABS: BETA-2-MICROGLOBULIN 3.5 mg/L (0.6-2.4)
[2022-09-09 02:11] LABS: FREE KAP CHN UR 3.74 mg/L (1.17-86.46); KAPPA LAMBDA RATIO URIN >5.42 (1.83-14.26)
== END 2022-09-02 16:30 | disposition home or self-care (01) ==
LOC: JONCCHEMO 10:06 → J7W 10:12 → JONCCHEMO 16:30
PROVIDERS: ATTEND Internal Medicine Hematology & Oncology
PROC: 3E0 Administration, Physiological Systems and Anatomical Regions, Introduction (ICD-10-PCS; principal; 2022-09-02)
PROC: 3E01305 Introduction of Other Antineoplastic into Subcutaneous Tissue, Percutaneous Approach (ICD-10-PCS; 2022-09-02)
PROC: 3E01305 Introduction of Other Antineoplastic into Subcutaneous Tissue, Percutaneous Approach (ICD-10-PCS; 2022-09-02)
DX: E85.4 Organ-limited amyloidosis (principal); E85.89 Other amyloidosis
CPT/HCPCS: 36415; 80048; 80076; 82232; 82784; 83615; 83735; 83883; 84155; 84165; 84550; 85025; 86335; 96361; 96367; 96401; 96413; 96415; J9041; J9070; J9144

== ENCOUNTER 2022-09-08 10:51 | Day surgery (SDC) | payer OTHER ==
[~2022-09-08 10:51] MED LIST changes: +BORTEZOMIB 2.5 MG/ML SUB-Q INJECTION SQ ONE; +CYCLOPHOSPHAMIDE IVPB ONE; +DEXAMETHASONE SODIUM PHOSPHATE 40 MG in SODIUM CHLORIDE 50 ML IVPB ONE; +SODIUM CHLORIDE IVPB ONE
[2022-09-08 11:25] LABS: BASO % 1.1 % (0-2.0); EOS % 0.7 % (0-4.5); HEMATOCRIT 36.1 % (35.4-49); HEMOGLOBIN 12.1 GM/dL (11.7-16.9); MCH 26.1 pg (25.7-33.7); MCHC 33.6 g/dl (32.0-35.9); MEAN CELL VOLUME 77.5 fl (80-96); MONO % 8.5 % (3.8-10.2); NEUT % 76.7 % (42.8-82.8); PLATELET COUNT 183 10^3/uL (134-434); POTASSIUM 5.1 mmol/L (3.5-5.1); RBC 4.66 M/mm3 (4.00-5.60); RDW 22.1 % (11.9-15.9); WHITE BLOOD COUNT 7.4 K/mm3 (4.0-10.0)
[2022-09-08 11:27] LABS: MAGNESIUM 2.4 mg/dL (1.8-2.4)
[2022-09-08 11:28] LABS: BLOOD UREA NITROGEN 30.4 mg/dL (7-18); CALCIUM 10.1 mg/dL (8.5-10.1)
[2022-09-08 11:29] LABS: ALBUMIN 4.3 g/dl (3.4-5.0)
[2022-09-08 11:31] LABS: BILIRUBIN,DIRECT 0.2 mg/dL (0.0-0.2); CREATININE 1.3 mg/dL (0.55-1.3)
[2022-09-08 11:34] LABS: BILIRUBIN,TOTAL 0.6 mg/dL (0.2-1); TOT PROT 7.1 g/dl (6.4-8.2)
[2022-09-08 11:51] LABS: ERYTHROCYTE SEDIMENTATION RATE 28 mm/hr (0-20)
[2022-09-08] MEDS ORDERED: SODIUM CHLORIDE 250 ML IV ONE (12:30)
[2022-09-08 12:31] LABS: ANISOCYTOSIS 2+; MACROCYTOSIS 0
[2022-09-08] MEDS ORDERED: PORTA CATH FLUSH 10 ML IVPUSH PRN (17:12)
[2022-09-08 17:13] VITALS: BP 114/65; PULSE 100; RESP 18; TEMP 97.6
== END 2022-09-08 17:05 | disposition home or self-care (01) ==
LOC: J7W 10:51 → JONCCHEMO 10:51
PROVIDERS: ATTEND Internal Medicine Hematology & Oncology
DX: E85.4 Organ-limited amyloidosis (principal); E85.89 Other amyloidosis
CPT/HCPCS: 36415; 80048; 80076; 83615; 83735; 84550; 85025; 85651; 86140; 96375; 96413; 96415; J9041; J9070

== ENCOUNTER 2022-09-15 10:49 | Day surgery (SDC) | payer OTHER ==
[~2022-09-15 10:49] MED LIST changes: +ACETAMINOPHEN 325 MG TABLET (FP) PO ONE; -BORTEZOMIB 2.5 MG/ML SUB-Q INJECTION SQ ONE; +DARATUMUMAB-HYALURONIDASE-FIHJ (FASPRO) 15 ML VIAL SQ ONE; -DEXAMETHASONE SODIUM PHOSPHATE 40 MG in SODIUM CHLORIDE 50 ML IVPB ONE; +DEXAMETHASONE SODIUM PHOSPHATE 40 MG, DIPHENHYDRAMINE 50 MG in SODIUM CHLORIDE 100 ML IVPB ONE
[2022-09-15 11:44] LABS: BASO % 1.3 % (0-2.0); EOS % 0.8 % (0-4.5); HEMATOCRIT 35.6 % (35.4-49); HEMOGLOBIN 11.8 GM/dL (11.7-16.9); LYMPH % 11.1 % (8-40); MCH 25.9 pg (25.7-33.7); MCHC 33.1 g/dl (32.0-35.9); MEAN CELL VOLUME 78.1 fl (80-96); MONO % 7.8 % (3.8-10.2); PLATELET COUNT 180 10^3/uL (134-434); RBC 4.56 M/mm3 (4.00-5.60); RDW 22.1 % (11.9-15.9); WHITE BLOOD COUNT 7.6 K/mm3 (4.0-10.0)
[2022-09-15 11:54] LABS: INR 1.31 (0.83-1.09); PROTHROMBIN TIME (PATIENT) 15.2 SEC (9.7-13.0)
[2022-09-15 11:55] LABS: POTASSIUM 4.4 mmol/L (3.5-5.1)
[2022-09-15 11:57] LABS: ACTIVATED PTT 35.9 SECONDS (25.2-36.5); BLOOD UREA NITROGEN 26.1 mg/dL (7-18); CALCIUM 9.2 mg/dL (8.5-10.1); MAGNESIUM 2.3 mg/dL (1.8-2.4)
[2022-09-15 11:58] LABS: ALBUMIN 4.2 g/dl (3.4-5.0)
[2022-09-15 12:00] LABS: BILIRUBIN,DIRECT 0.2 mg/dL (0.0-0.2); CREATININE 1.4 mg/dL (0.55-1.3); URIC ACID 4.6 mg/dL (2.6-7.2)
[2022-09-15 12:02] LABS: BILIRUBIN,TOTAL 0.6 mg/dL (0.2-1); TOT PROT 6.8 g/dl (6.4-8.2)
[2022-09-15] MEDS ORDERED: BORTEZOMIB 2.5 MG/ML SUB-Q INJECTION SQ ONE (12:30)
[2022-09-15] MEDS ORDERED: SODIUM CHLORIDE 250 ML IV ONE (12:30)
[2022-09-15 15:03] LABS: ANISOCYTOSIS 2+; MACROCYTOSIS 0
[2022-09-15 15:44] VITALS: BP 119/64; PULSE 88; RESP 20; TEMP 98.1
[2022-09-15] MEDS ORDERED: PORTA CATH FLUSH 10 ML IVPUSH PRN (16:14)
== END 2022-09-15 17:16 | disposition home or self-care (01) ==
LOC: JONCCHEMO 10:49 → J7W 10:50 → JONCCHEMO 17:16
PROVIDERS: ATTEND Internal Medicine Hematology & Oncology
DX: Z51.11 Encounter for antineoplastic chemotherapy (principal); E85.4 Organ-limited amyloidosis; E85.89 Other amyloidosis
CPT/HCPCS: 36415; 80048; 80076; 83735; 84550; 85025; 85384; 85610; 85730; 96401; 96413; J9041; J9070; J9144

== ENCOUNTER 2022-09-23 09:54 | Day surgery (SDC) | payer OTHER ==
[~2022-09-23 09:54] MED LIST changes: -ACETAMINOPHEN 325 MG TABLET (FP) PO ONE; -CYCLOPHOSPHAMIDE IVPB ONE; -DARATUMUMAB-HYALURONIDASE-FIHJ (FASPRO) 15 ML VIAL SQ ONE; -DEXAMETHASONE SODIUM PHOSPHATE 40 MG, DIPHENHYDRAMINE 50 MG in SODIUM CHLORIDE 100 ML IVPB ONE; -SODIUM CHLORIDE IVPB ONE
[2022-09-23] MEDS ORDERED: DEXAMETHASONE SODIUM PHOSPHATE 40 MG in SODIUM CHLORIDE 50 ML IVPB ONE (10:00)
[2022-09-23] MEDS ORDERED: SODIUM CHLORIDE IVPB ONE (10:30)
[2022-09-23] MEDS ORDERED: CYCLOPHOSPHAMIDE IVPB ONE (10:30)
[2022-09-23 11:25] LABS: BASO % 1.3 % (0-2.0); EOS % 0.9 % (0-4.5); HEMATOCRIT 33.8 % (35.4-49); HEMOGLOBIN 11.2 GM/dL (11.7-16.9); LYMPH % 11.5 % (8-40); MCH 26.8 pg (25.7-33.7); MEAN CELL VOLUME 81.1 fl (80-96); MEAN PLT VOLUME 9.1 fl (7.5-11.1); MONO % 7.3 % (3.8-10.2); PLATELET COUNT 238 10^3/uL (134-434); RBC 4.16 M/mm3 (4.00-5.60); RDW 22.9 % (11.9-15.9); WHITE BLOOD COUNT 7.3 K/mm3 (4.0-10.0)
[2022-09-23 11:31] LABS: POTASSIUM 4.7 mmol/L (3.5-5.1)
[2022-09-23 11:33] LABS: CALCIUM 9.4 mg/dL (8.5-10.1); MAGNESIUM 2.2 mg/dL (1.8-2.4)
[2022-09-23 11:34] LABS: ALBUMIN 4.1 g/dl (3.4-5.0); BLOOD UREA NITROGEN 38.2 mg/dL (7-18)
[2022-09-23 11:36] LABS: CREATININE 1.6 mg/dL (0.55-1.3)
[2022-09-23 11:37] LABS: BILIRUBIN,DIRECT 0.2 mg/dL (0.0-0.2); URIC ACID 4.7 mg/dL (2.6-7.2)
[2022-09-23 11:38] LABS: TOT PROT 6.6 g/dl (6.4-8.2)
[2022-09-23 11:39] LABS: BILIRUBIN,TOTAL 0.5 mg/dL (0.2-1)
[2022-09-23] MEDS ORDERED: SODIUM CHLORIDE 250 ML IV ONE (12:30)
[2022-09-23 17:34] VITALS: TEMP 98.5
[2022-09-23 18:12] VITALS: BP 112/66; PULSE 91; RESP 18
[2022-09-23] MEDS ORDERED: PORTA CATH FLUSH 10 ML IVPUSH PRN (18:12)
== END 2022-09-23 16:30 | disposition home or self-care (01) ==
LOC: JONCCHEMO 09:54 → J7W 09:55 → JONCCHEMO 16:30
PROVIDERS: ATTEND Internal Medicine Hematology & Oncology
DX: Z51.11 Encounter for antineoplastic chemotherapy (principal); E85.4 Organ-limited amyloidosis; E85.89 Other amyloidosis
CPT/HCPCS: 36415; 80048; 80076; 83615; 83735; 84550; 85025; 96361; 96375; 96413; 96415; J9070

== ENCOUNTER 2022-09-29 10:13 | Day surgery (SDC) | payer OTHER ==
[~2022-09-29 10:13] MED LIST changes: +ACETAMINOPHEN 325 MG TABLET (FP) PO ONE; +BORTEZOMIB 2.5 MG/ML SUB-Q INJECTION SQ ONE; +DARATUMUMAB-HYALURONIDASE-FIHJ (FASPRO) 15 ML VIAL SQ ONE; +DEXAMETHASONE SODIUM PHOSPHATE 40 MG, DIPHENHYDRAMINE 50 MG in SODIUM CHLORIDE 100 ML IVPB ONE
[2022-09-29] MEDS ORDERED: SODIUM CHLORIDE IVPB ONE (10:45)
[2022-09-29] MEDS ORDERED: CYCLOPHOSPHAMIDE IVPB ONE (10:45)
[2022-09-29 11:23] LABS: BASO % 0.6 % (0-2.0); EOS % 1.8 % (0-4.5); HEMATOCRIT 35.7 % (35.4-49); HEMOGLOBIN 11.8 GM/dL (11.7-16.9); LYMPH % 11.6 % (8-40); MCH 26.5 pg (25.7-33.7); MCHC 33.2 g/dl (32.0-35.9); MEAN PLT VOLUME 8.2 fl (7.5-11.1); MONO % 8.1 % (3.8-10.2); NEUT % 77.9 % (42.8-82.8); PLATELET COUNT 222 10^3/uL (134-434); RBC 4.46 M/mm3 (4.00-5.60); RDW 22.7 % (11.9-15.9); WHITE BLOOD COUNT 7.6 K/mm3 (4.0-10.0)
[2022-09-29 11:49] LABS: ALBUMIN 4.3 g/dl (3.4-5.0); ANISOCYTOSIS 3+; MACROCYTOSIS 0; MAGNESIUM 2.4 mg/dL (1.8-2.4); TEAR DROP CELLS 2+
[2022-09-29 11:51] LABS: BILIRUBIN,DIRECT 0.2 mg/dL (0.0-0.2); URIC ACID 4.5 mg/dL (2.6-7.2)
[2022-09-29 11:53] LABS: BILIRUBIN,TOTAL 0.7 mg/dL (0.2-1); TOT PROT 6.7 g/dl (6.4-8.2)
[2022-09-29 12:06] LABS: POTASSIUM 4.7 mmol/L (3.5-5.1)
[2022-09-29 12:07] LABS: CALCIUM 9.7 mg/dL (8.5-10.1)
[2022-09-29 12:11] LABS: CREATININE 1.3 mg/dL (0.55-1.3)
[2022-09-29] MEDS ORDERED: SODIUM CHLORIDE 250 ML IV ONE (14:00)
[2022-09-29 17:23] VITALS: RESP 20; TEMP 98
[2022-09-29 17:27] VITALS: BP 120/69; PULSE 100
[2022-09-29] MEDS ORDERED: PORTA CATH FLUSH 10 ML IVPUSH PRN (17:27)
[2022-09-30 17:07] LABS: FREE KAPPA,SERUM 5.9 mg/L (3.3-19.4)
[2022-10-01 07:07] LABS: FREE KAP CHN UR 3.15 mg/L (1.17-86.46); KAPPA LAMBDA RATIO URIN >4.57 (1.83-14.26)
== END 2022-09-29 17:00 | disposition home or self-care (01) ==
LOC: JONCCHEMO 10:13
PROVIDERS: ATTEND Internal Medicine Hematology & Oncology
DX: Z51.11 Encounter for antineoplastic chemotherapy (principal); E85.4 Organ-limited amyloidosis; E85.89 Other amyloidosis
CPT/HCPCS: 36415; 80048; 80076; 82232; 82607; 82728; 82784; 83540; 83550; 83615; 83735; 83883; 84155; 84165; 84439; 84443; 84550; 85025; 86335; 96367; 96413; 96415; J9041; J9070; J9144

== ENCOUNTER 2022-10-06 10:16 | Day surgery (SDC) | payer OTHER ==
[~2022-10-06 10:16] MED LIST changes: -ACETAMINOPHEN 325 MG TABLET (FP) PO ONE; -BORTEZOMIB 2.5 MG/ML SUB-Q INJECTION SQ ONE; +CYCLOPHOSPHAMIDE IVPB ONE; -DARATUMUMAB-HYALURONIDASE-FIHJ (FASPRO) 15 ML VIAL SQ ONE; +DEXAMETHASONE SODIUM PHOSPHATE 40 MG in SODIUM CHLORIDE 50 ML IVPB ONE; -DEXAMETHASONE SODIUM PHOSPHATE 40 MG, DIPHENHYDRAMINE 50 MG in SODIUM CHLORIDE 100 ML IVPB ONE; +IRON SUCROSE INJECTION 200 MG in SODIUM CHLORIDE 100 ML IVPB ONE; -SODIUM CHLORIDE 250 ML IV ONE; +SODIUM CHLORIDE IVPB ONE
[2022-10-06 10:58] LABS: EOS % 0.7 % (0-4.5); HEMATOCRIT 35.2 % (35.4-49); HEMOGLOBIN 11.4 GM/dL (11.7-16.9); LYMPH % 12.2 % (8-40); MCH 26.7 pg (25.7-33.7); MCHC 32.4 g/dl (32.0-35.9); MEAN CELL VOLUME 82.2 fl (80-96); MEAN PLT VOLUME 9.6 fl (7.5-11.1); MONO % 9.4 % (3.8-10.2); NEUT % 76.7 % (42.8-82.8); PLATELET COUNT 184 10^3/uL (134-434); RBC 4.28 M/mm3 (4.00-5.60); RDW 23.5 % (11.9-15.9); WHITE BLOOD COUNT 7.3 K/mm3 (4.0-10.0)
[2022-10-06] MEDS ORDERED: BORTEZOMIB 2.5 MG/ML SUB-Q INJECTION SQ ONE (11:00)
[2022-10-06 11:16] LABS: POTASSIUM 4.7 mmol/L (3.5-5.1)
[2022-10-06 11:19] LABS: CALCIUM 9.4 mg/dL (8.5-10.1); MAGNESIUM 2.4 mg/dL (1.8-2.4)
[2022-10-06 11:20] LABS: BLOOD UREA NITROGEN 28.4 mg/dL (7-18)
[2022-10-06 11:21] LABS: URIC ACID 4.8 mg/dL (2.6-7.2)
[2022-10-06 11:22] LABS: BILIRUBIN,DIRECT 0.1 mg/dL (0.0-0.2); CREATININE 1.4 mg/dL (0.55-1.3)
[2022-10-06 11:23] LABS: TOT PROT 6.4 g/dl (6.4-8.2)
[2022-10-06 11:25] LABS: BILIRUBIN,TOTAL 0.6 mg/dL (0.2-1)
[2022-10-06 11:43] LABS: ANISOCYTOSIS 2+; MACROCYTOSIS 0
[2022-10-06] MEDS ORDERED: SODIUM CHLORIDE 250 ML IV ONE (12:00)
[2022-10-06] MEDS ORDERED: PORTA CATH FLUSH 10 ML IVPUSH PRN (17:26)
[2022-10-06 17:27] VITALS: RESP 18; TEMP 98.1
[2022-10-06 17:31] VITALS: BP 123/59; PULSE 94
== END 2022-10-06 16:40 | disposition home or self-care (01) ==
LOC: JONCCHEMO 10:16 → J7W 10:17 → JONCCHEMO 16:40
PROVIDERS: ATTEND Internal Medicine Hematology & Oncology
DX: Z51.11 Encounter for antineoplastic chemotherapy (principal); E85.4 Organ-limited amyloidosis; E85.89 Other amyloidosis; E61.1 Iron deficiency
CPT/HCPCS: 36415; 80048; 80076; 83615; 83735; 84550; 85025; 96367; 96375; 96401; 96413; 96415; J1756; J9041; J9070

== ENCOUNTER 2022-10-20 09:56 | Day surgery (SDC) | payer OTHER ==
[~2022-10-20 09:56] MED LIST changes: +ACETAMINOPHEN 325 MG TABLET (FP) PO ONE; +BORTEZOMIB 2.5 MG/ML SUB-Q INJECTION SQ ONE; +DARATUMUMAB-HYALURONIDASE-FIHJ (FASPRO) 15 ML VIAL SQ ONE; +DEXAMETHASONE SODIUM PHOSPHATE 40 MG, DIPHENHYDRAMINE 50 MG in SODIUM CHLORIDE 100 ML IVPB ONE; +SODIUM CHLORIDE 250 ML IV ONE
[2022-10-20] MEDS ORDERED: CYCLOPHOSPHAMIDE IVPB ONE (10:00)
[2022-10-20] MEDS ORDERED: SODIUM CHLORIDE IVPB ONE (10:00)
[2022-10-20 10:45] LABS: BASO % 2.3 % (0-2.0); EOS % 1.7 % (0-4.5); HEMATOCRIT 33.4 % (35.4-49); MCHC 33.1 g/dl (32.0-35.9); MEAN CELL VOLUME 84.6 fl (80-96); MEAN PLT VOLUME 9.1 fl (7.5-11.1); MONO % 7.8 % (3.8-10.2); NEUT % 77.2 % (42.8-82.8); PLATELET COUNT 184 10^3/uL (134-434); RBC 3.94 M/mm3 (4.00-5.60); RDW 22.4 % (11.9-15.9); WHITE BLOOD COUNT 6.3 K/mm3 (4.0-10.0)
[2022-10-20 10:52] LABS: POTASSIUM 4.4 mmol/L (3.5-5.1)
[2022-10-20 10:54] LABS: BLOOD UREA NITROGEN 22.3 mg/dL (7-18); CALCIUM 9.4 mg/dL (8.5-10.1); MAGNESIUM 2.4 mg/dL (1.8-2.4)
[2022-10-20 10:58] LABS: BILIRUBIN,DIRECT 0.2 mg/dL (0.0-0.2); CREATININE 1.4 mg/dL (0.55-1.3); URIC ACID 4.3 mg/dL (2.6-7.2)
[2022-10-20 10:59] LABS: BILIRUBIN,TOTAL 0.9 mg/dL (0.2-1); TOT PROT 6.4 g/dl (6.4-8.2)
[2022-10-20] MEDS ORDERED: SODIUM CHLORIDE 250 ML IV ONE (12:00)
[2022-10-20 16:11] VITALS: RESP 18; TEMP 98
[2022-10-20] MEDS ORDERED: PORTA CATH FLUSH 10 ML IVPUSH PRN (16:11)
[2022-10-20 17:30] VITALS: BP 115/66; PULSE 82
== END 2022-10-20 16:00 | disposition home or self-care (01) ==
LOC: J7W 09:56 → JONCCHEMO 09:56
PROVIDERS: ATTEND Internal Medicine Hematology & Oncology
PROC: 3E04305 Introduction of Other Antineoplastic into Central Vein, Percutaneous Approach (ICD-10-PCS; principal; 2022-10-20)
PROC: 3E0437Z Introduction of Electrolytic and Water Balance Substance into Central Vein, Percutaneous Approach (ICD-10-PCS; 2022-10-20)
PROC: 3E043GC Introduction of Other Therapeutic Substance into Central Vein, Percutaneous Approach (ICD-10-PCS; 2022-10-20)
DX: Z51.11 Encounter for antineoplastic chemotherapy (principal); E85.89 Other amyloidosis; E61.1 Iron deficiency
CPT/HCPCS: 36415; 80048; 80076; 83615; 83735; 84550; 85025; 96361; 96367; 96375; 96413; 96415; J1756; J9070

== ENCOUNTER 2022-10-27 09:58 | Day surgery (SDC) | payer OTHER ==
[~2022-10-27 09:58] MED LIST changes: -ACETAMINOPHEN 325 MG TABLET (FP) PO ONE; -BORTEZOMIB 2.5 MG/ML SUB-Q INJECTION SQ ONE; -CYCLOPHOSPHAMIDE IVPB ONE; -DARATUMUMAB-HYALURONIDASE-FIHJ (FASPRO) 15 ML VIAL SQ ONE; -DEXAMETHASONE SODIUM PHOSPHATE 40 MG in SODIUM CHLORIDE 50 ML IVPB ONE; -DEXAMETHASONE SODIUM PHOSPHATE 40 MG, DIPHENHYDRAMINE 50 MG in SODIUM CHLORIDE 100 ML IVPB ONE; -SODIUM CHLORIDE 250 ML IV ONE; -SODIUM CHLORIDE IVPB ONE
[2022-10-27] MEDS ORDERED: DEXAMETHASONE SODIUM PHOSPHATE 40 MG, DIPHENHYDRAMINE 50 MG in SODIUM CHLORIDE 100 ML IVPB ONE (10:15)
[2022-10-27] MEDS ORDERED: ACETAMINOPHEN 325 MG TABLET (FP) PO ONE (10:30)
[2022-10-27] MEDS ORDERED: DARATUMUMAB-HYALURONIDASE-FIHJ (FASPRO) 15 ML VIAL SQ ONE (11:00)
[2022-10-27 11:10] LABS: BASO % 1.6 % (0-2.0); EOS % 2.4 % (0-4.5); HEMATOCRIT 34.6 % (35.4-49); HEMOGLOBIN 11.2 GM/dL (11.7-16.9); LYMPH % 12.1 % (8-40); MCHC 32.5 g/dl (32.0-35.9); MEAN CELL VOLUME 86.2 fl (80-96); MEAN PLT VOLUME 9.1 fl (7.5-11.1); MONO % 11.8 % (3.8-10.2); NEUT % 72.1 % (42.8-82.8); PLATELET COUNT 188 10^3/uL (134-434); RBC 4.01 M/mm3 (4.00-5.60); RDW 22.8 % (11.9-15.9); WHITE BLOOD COUNT 6.5 K/mm3 (4.0-10.0)
[2022-10-27] MEDS ORDERED: BORTEZOMIB 2.5 MG/ML SUB-Q INJECTION SQ ONE (11:15)
[2022-10-27] MEDS ORDERED: SODIUM CHLORIDE IVPB ONE (11:30)
[2022-10-27] MEDS ORDERED: CYCLOPHOSPHAMIDE IVPB ONE (11:30)
[2022-10-27 11:32] LABS: POTASSIUM 4.5 mmol/L (3.5-5.1)
[2022-10-27 11:35] LABS: ANISOCYTOSIS 1+; MACROCYTOSIS 0; MAGNESIUM 2.2 mg/dL (1.8-2.4)
[2022-10-27 11:36] LABS: BLOOD UREA NITROGEN 26.4 mg/dL (7-18); CALCIUM 9.1 mg/dL (8.5-10.1)
[2022-10-27 11:37] LABS: ALBUMIN 4.2 g/dl (3.4-5.0)
[2022-10-27 11:38] LABS: URIC ACID 4.4 mg/dL (2.6-7.2)
[2022-10-27 11:39] LABS: BILIRUBIN,DIRECT 0.1 mg/dL (0.0-0.2); CREATININE 1.5 mg/dL (0.55-1.3)
[2022-10-27 11:40] LABS: TOT PROT 6.6 g/dl (6.4-8.2)
[2022-10-27 11:41] LABS: BILIRUBIN,TOTAL 0.6 mg/dL (0.2-1)
[2022-10-27] MEDS ORDERED: SODIUM CHLORIDE 250 ML IV ONE (12:00)
[2022-10-27 17:32] VITALS: RESP 18; TEMP 98.2
[2022-10-27] MEDS ORDERED: PORTA CATH FLUSH 10 ML IVPUSH PRN (17:53)
[2022-10-27 17:58] VITALS: BP 118/65; PULSE 88
== END 2022-10-27 16:45 | disposition home or self-care (01) ==
LOC: JONCCHEMO 09:58 → J7W 10:02 → JONCCHEMO 16:45
PROVIDERS: ATTEND Internal Medicine Hematology & Oncology
DX: E85.89 Other amyloidosis (principal)
CPT/HCPCS: 36415; 80048; 80076; 83615; 83735; 84550; 85025; 96361; 96367; 96401; 96413; 96415; J1756; J9041; J9070; J9144

== ENCOUNTER 2022-11-03 10:16 | Day surgery (SDC) | payer OTHER ==
[~2022-11-03 10:16] MED LIST changes: +DEXAMETHASONE SODIUM PHOSPHATE 40 MG in SODIUM CHLORIDE 50 ML IVPB ONE; -IRON SUCROSE INJECTION 200 MG in SODIUM CHLORIDE 100 ML IVPB ONE; +SODIUM CHLORIDE 250 ML IV ONE
[2022-11-03] MEDS ORDERED: SODIUM CHLORIDE IVPB ONE (10:30)
[2022-11-03] MEDS ORDERED: CYCLOPHOSPHAMIDE IVPB ONE (10:30)
[2022-11-03 11:49] LABS: BASO % 0.8 % (0-2.0); EOS % 1.8 % (0-4.5); HEMATOCRIT 35.9 % (35.4-49); HEMOGLOBIN 12.4 GM/dL (11.7-16.9); LYMPH % 7.9 % (8-40); MCH 29.4 pg (25.7-33.7); MCHC 34.4 g/dl (32.0-35.9); MEAN CELL VOLUME 85.3 fl (80-96); MONO % 6.2 % (3.8-10.2); NEUT % 83.3 % (42.8-82.8); PLATELET COUNT 177 10^3/uL (134-434); RBC 4.21 M/mm3 (4.00-5.60); RDW 22.7 % (11.9-15.9)
[2022-11-03 12:10] LABS: ANISOCYTOSIS 1+; MACROCYTOSIS 0
[2022-11-03 12:22] LABS: POTASSIUM 4.7 mmol/L (3.5-5.1)
[2022-11-03 12:23] LABS: MAGNESIUM 2.3 mg/dL (1.8-2.4)
[2022-11-03 12:24] LABS: ALBUMIN 4.1 g/dl (3.4-5.0); CALCIUM 9.2 mg/dL (8.5-10.1)
[2022-11-03 12:25] LABS: BLOOD UREA NITROGEN 29.8 mg/dL (7-18)
[2022-11-03 12:27] LABS: BILIRUBIN,DIRECT 0.1 mg/dL (0.0-0.2); CREATININE 1.3 mg/dL (0.55-1.3)
[2022-11-03 12:28] LABS: TOT PROT 6.5 g/dl (6.4-8.2)
[2022-11-03 12:29] LABS: BILIRUBIN,TOTAL 0.5 mg/dL (0.2-1)
[2022-11-03] MEDS ORDERED: BORTEZOMIB 2.5 MG/ML SUB-Q INJECTION SQ ONE (12:30)
[2022-11-03] MEDS ORDERED: SODIUM CHLORIDE 250 ML IV ONE (12:30)
[2022-11-03 16:36] VITALS: BP 135/72; PULSE 90; RESP 20; TEMP 97.9
[2022-11-03] MEDS ORDERED: PORTA CATH FLUSH 10 ML IVPUSH PRN (16:36)
== END 2022-11-03 16:45 | disposition home or self-care (01) ==
LOC: JONCCHEMO 10:16 → J7W 10:21 → JONCCHEMO 16:45
PROVIDERS: ATTEND Internal Medicine Hematology & Oncology
DX: E85.89 Other amyloidosis (principal); E85.4 Organ-limited amyloidosis; I43 Cardiomyopathy in diseases classified elsewhere
CPT/HCPCS: 36415; 80048; 80076; 83540; 83615; 83735; 84550; 85025; 96375; 96401; 96413; 96415; J9041; J9070

== ENCOUNTER 2022-11-10 10:05 | Day surgery (SDC) | payer OTHER ==
[~2022-11-10 10:05] MED LIST changes: +ACETAMINOPHEN 325 MG TABLET (FP) PO ONE; -DEXAMETHASONE SODIUM PHOSPHATE 40 MG in SODIUM CHLORIDE 50 ML IVPB ONE; +DEXAMETHASONE SODIUM PHOSPHATE 40 MG, DIPHENHYDRAMINE 50 MG in SODIUM CHLORIDE 100 ML IVPB ONE
[2022-11-10] MEDS ORDERED: DARATUMUMAB-HYALURONIDASE-FIHJ (FASPRO) 15 ML VIAL SQ ONE (10:30)
[2022-11-10] MEDS ORDERED: SODIUM CHLORIDE IVPB ONE (10:30)
[2022-11-10] MEDS ORDERED: BORTEZOMIB 2.5 MG/ML SUB-Q INJECTION SQ ONE (10:30)
[2022-11-10] MEDS ORDERED: CYCLOPHOSPHAMIDE IVPB ONE (10:30)
[2022-11-10 10:43] LABS: EOS % 1.3 % (0-4.5); HEMOGLOBIN 12.3 GM/dL (11.7-16.9); LYMPH % 12.7 % (8-40); MCH 29.4 pg (25.7-33.7); MCHC 34.1 g/dl (32.0-35.9); MEAN CELL VOLUME 86.3 fl (80-96); MEAN PLT VOLUME 8.8 fl (7.5-11.1); MONO % 9.3 % (3.8-10.2); NEUT % 74.7 % (42.8-82.8); PLATELET COUNT 156 10^3/uL (134-434); RBC 4.17 M/mm3 (4.00-5.60); RDW 22.3 % (11.9-15.9); WHITE BLOOD COUNT 6.5 K/mm3 (4.0-10.0)
[2022-11-10 11:02] LABS: POTASSIUM 4.7 mmol/L (3.5-5.1)
[2022-11-10 11:06] LABS: CALCIUM 9.5 mg/dL (8.5-10.1); MAGNESIUM 2.2 mg/dL (1.8-2.4)
[2022-11-10 11:08] LABS: BLOOD UREA NITROGEN 28.6 mg/dL (7-18)
[2022-11-10 11:09] LABS: BILIRUBIN,DIRECT 0.1 mg/dL (0.0-0.2); CREATININE 1.2 mg/dL (0.55-1.3)
[2022-11-10 11:10] LABS: TOT PROT 6.4 g/dl (6.4-8.2); URIC ACID 5.3 mg/dL (2.6-7.2)
[2022-11-10 11:13] LABS: BILIRUBIN,TOTAL 0.7 mg/dL (0.2-1)
[2022-11-10 12:08] LABS: ANISOCYTOSIS 1+; MACROCYTOSIS 1+
[2022-11-10] MEDS ORDERED: SODIUM CHLORIDE 250 ML IV ONE (12:30)
[2022-11-10 15:50] VITALS: RESP 20; TEMP 97.8
[2022-11-10] MEDS ORDERED: PORTA CATH FLUSH 10 ML IVPUSH PRN (15:50)
[2022-11-10 16:10] VITALS: BP 116/68; PULSE 89
== END 2022-11-10 16:20 | disposition home or self-care (01) ==
LOC: JONCCHEMO 10:05 → J7W 10:13 → JONCCHEMO 16:20
PROVIDERS: ATTEND Internal Medicine Hematology & Oncology
DX: Z51.11 Encounter for antineoplastic chemotherapy (principal); E85.89 Other amyloidosis; E85.4 Organ-limited amyloidosis; I43 Cardiomyopathy in diseases classified elsewhere
CPT/HCPCS: 36415; 80048; 80076; 83615; 83735; 84550; 85025; 96361; 96367; 96401; 96413; 96415; J9041; J9070; J9144

== ENCOUNTER 2022-11-17 09:50 | Day surgery (SDC) | payer OTHER ==
[2022-11-17] MEDS ORDERED: SODIUM CHLORIDE 250 ML IV ONE ×2 (10:00→12:30)
[2022-11-17] MEDS ORDERED: DEXAMETHASONE SODIUM PHOSPHATE 40 MG in SODIUM CHLORIDE 50 ML IVPB ONE (10:00)
[2022-11-17 10:14] LABS: BASO % 0.4 % (0-2.0); EOS % 2.3 % (0-4.5); HEMATOCRIT 34.3 % (35.4-49); HEMOGLOBIN 11.3 GM/dL (11.7-16.9); LYMPH % 12.4 % (8-40); MCH 29.3 pg (25.7-33.7); MCHC 32.9 g/dl (32.0-35.9); MEAN PLT VOLUME 9.1 fl (7.5-11.1); NEUT % 75.9 % (42.8-82.8); PLATELET COUNT 164 10^3/uL (134-434); RBC 3.85 M/mm3 (4.00-5.60); RDW 22.2 % (11.9-15.9); WHITE BLOOD COUNT 6.8 K/mm3 (4.0-10.0)
[2022-11-17 10:29] LABS: POTASSIUM 4.5 mmol/L (3.5-5.1)
[2022-11-17] MEDS ORDERED: SODIUM CHLORIDE IVPB ONE (10:30)
[2022-11-17] MEDS ORDERED: CYCLOPHOSPHAMIDE IVPB ONE (10:30)
[2022-11-17 10:31] LABS: CALCIUM 8.9 mg/dL (8.5-10.1); MAGNESIUM 2.4 mg/dL (1.8-2.4)
[2022-11-17 10:32] LABS: BLOOD UREA NITROGEN 28.1 mg/dL (7-18)
[2022-11-17 10:33] LABS: URIC ACID 4.6 mg/dL (2.6-7.2)
[2022-11-17 10:34] LABS: BILIRUBIN,DIRECT 0.2 mg/dL (0.0-0.2); CREATININE 1.4 mg/dL (0.55-1.3)
[2022-11-17 10:35] LABS: TOT PROT 6.4 g/dl (6.4-8.2)
[2022-11-17 10:43] LABS: BILIRUBIN,TOTAL 0.7 mg/dL (0.2-1)
[2022-11-17 15:38] LABS: ANISOCYTOSIS 1+; MACROCYTOSIS 0
[2022-11-17 16:35] VITALS: BP 123/68; PULSE 91; RESP 20; TEMP 97.8
[2022-11-17] MEDS ORDERED: PORTA CATH FLUSH 10 ML IVPUSH PRN (16:35)
== END 2022-11-17 14:50 | disposition home or self-care (01) ==
LOC: JONCCHEMO 09:50 → J7W 09:51 → JONCCHEMO 14:50
PROVIDERS: ATTEND Internal Medicine Hematology & Oncology
DX: E85.81 Light chain (AL) amyloidosis (principal)
CPT/HCPCS: 36415; 80048; 80076; 83615; 83735; 84550; 85025; 96361; 96375; 96413; 96415; J9070

== ENCOUNTER 2022-11-24 09:42 | Day surgery (SDC) | payer OTHER ==
[~2022-11-24 09:42] MED LIST changes: -ACETAMINOPHEN 325 MG TABLET (FP) PO ONE; -DEXAMETHASONE SODIUM PHOSPHATE 40 MG, DIPHENHYDRAMINE 50 MG in SODIUM CHLORIDE 100 ML IVPB ONE
[2022-11-24] MEDS ORDERED: ACETAMINOPHEN 325 MG TABLET (FP) PO ONE (10:00)
[2022-11-24] MEDS ORDERED: DEXAMETHASONE SODIUM PHOSPHATE 40 MG, DIPHENHYDRAMINE 50 MG in SODIUM CHLORIDE 100 ML IVPB ONE (10:00)
[2022-11-24 10:22] LABS: BASO % 1.4 % (0-2.0); EOS % 2.1 % (0-4.5); HEMATOCRIT 37.7 % (35.4-49); HEMOGLOBIN 12.8 GM/dL (11.7-16.9); LYMPH % 11.1 % (8-40); MCH 30.1 pg (25.7-33.7); MEAN CELL VOLUME 88.4 fl (80-96); MEAN PLT VOLUME 8.3 fl (7.5-11.1); MONO % 6.8 % (3.8-10.2); NEUT % 78.6 % (42.8-82.8); PLATELET COUNT 208 10^3/uL (134-434); RBC 4.26 M/mm3 (4.00-5.60); RDW 21.7 % (11.9-15.9); WHITE BLOOD COUNT 7.4 K/mm3 (4.0-10.0)
[2022-11-24] MEDS ORDERED: DARATUMUMAB-HYALURONIDASE-FIHJ (FASPRO) 15 ML VIAL SQ ONE (10:30)
[2022-11-24] MEDS ORDERED: BORTEZOMIB 2.5 MG/ML SUB-Q INJECTION SQ ONE (10:30)
[2022-11-24] MEDS ORDERED: CYCLOPHOSPHAMIDE IVPB ONE (10:30)
[2022-11-24] MEDS ORDERED: SODIUM CHLORIDE IVPB ONE (10:30)
[2022-11-24 10:52] LABS: ALBUMIN 4.2 g/dl (3.4-5.0); MAGNESIUM 2.2 mg/dL (1.8-2.4)
[2022-11-24 10:55] LABS: BILIRUBIN,DIRECT 0.2 mg/dL (0.0-0.2); URIC ACID 4.7 mg/dL (2.6-7.2)
[2022-11-24 10:57] LABS: BILIRUBIN,TOTAL 0.7 mg/dL (0.2-1); TOT PROT 6.8 g/dl (6.4-8.2)
[2022-11-24 10:58] LABS: ANISOCYTOSIS 1+; MACROCYTOSIS 1+
[2022-11-24] MEDS ORDERED: SODIUM CHLORIDE 250 ML IV ONE (11:00)
[2022-11-24 17:01] VITALS: BP 145/74; PULSE 82; RESP 20; TEMP 97.9
[2022-11-24] MEDS ORDERED: PORTA CATH FLUSH 10 ML IVPUSH PRN (17:01)
[2022-11-26 06:08] LABS: FREE KAP CHN UR 4.22 mg/L (1.17-86.46); KAPPA LAMBDA RATIO URIN >6.12 (1.83-14.26)
== END 2022-11-24 16:00 | disposition home or self-care (01) ==
LOC: JONCCHEMO 09:42 → J7W 09:43 → JONCCHEMO 16:00
PROVIDERS: ATTEND Internal Medicine Hematology & Oncology
PROC: 3E04305 Introduction of Other Antineoplastic into Central Vein, Percutaneous Approach (ICD-10-PCS; principal; 2022-11-24)
PROC: 3E01305 Introduction of Other Antineoplastic into Subcutaneous Tissue, Percutaneous Approach (ICD-10-PCS; 2022-11-24)
PROC: 3E0437Z Introduction of Electrolytic and Water Balance Substance into Central Vein, Percutaneous Approach (ICD-10-PCS; 2022-11-24)
PROC: 3E043GC Introduction of Other Therapeutic Substance into Central Vein, Percutaneous Approach (ICD-10-PCS; 2022-11-24)
DX: Z51.11 Encounter for antineoplastic chemotherapy (principal); E85.81 Light chain (AL) amyloidosis
CPT/HCPCS: 36415; 80076; 82232; 82784; 83615; 83735; 83883; 84155; 84165; 84550; 85025; 86335; 96361; 96367; 96401; 96413; 96415; J9041; J9070; J9144

== ENCOUNTER 2022-12-01 10:32 | Day surgery (SDC) | payer OTHER ==
[~2022-12-01 10:32] MED LIST changes: +CYCLOPHOSPHAMIDE IVPB ONE; +DEXAMETHASONE SODIUM PHOSPHATE 40 MG in SODIUM CHLORIDE 50 ML IVPB ONE; +SODIUM CHLORIDE IVPB ONE
[2022-12-01 11:30] LABS: BASO % 1.1 % (0-2.0); EOS % 2.1 % (0-4.5); HEMOGLOBIN 12.2 GM/dL (11.7-16.9); LYMPH % 9.8 % (8-40); MCH 29.9 pg (25.7-33.7); MCHC 33.9 g/dl (32.0-35.9); MEAN CELL VOLUME 88.3 fl (80-96); MEAN PLT VOLUME 8.5 fl (7.5-11.1); MONO % 7.9 % (3.8-10.2); NEUT % 79.1 % (42.8-82.8); PLATELET COUNT 157 10^3/uL (134-434); RBC 4.08 M/mm3 (4.00-5.60); RDW 20.6 % (11.9-15.9); WHITE BLOOD COUNT 7.4 K/mm3 (4.0-10.0)
[2022-12-01 11:57] LABS: MAGNESIUM 2.3 mg/dL (1.8-2.4)
[2022-12-01 11:59] LABS: BILIRUBIN,DIRECT 0.1 mg/dL (0.0-0.2)
[2022-12-01] MEDS ORDERED: BORTEZOMIB 2.5 MG/ML SUB-Q INJECTION SQ ONE (12:00)
[2022-12-01] MEDS ORDERED: SODIUM CHLORIDE 250 ML IV ONE (12:00)
[2022-12-01 12:01] LABS: BILIRUBIN,TOTAL 0.5 mg/dL (0.2-1); TOT PROT 6.6 g/dl (6.4-8.2)
[2022-12-01 12:02] LABS: ANISOCYTOSIS 1+; MACROCYTOSIS 1+
[2022-12-01 12:11] LABS: URIC ACID 4.5 mg/dL (2.6-7.2)
[2022-12-01 14:02] LABS: POTASSIUM 4.6 mmol/L (3.5-5.1)
[2022-12-01 14:03] LABS: CALCIUM 8.7 mg/dL (8.5-10.1)
[2022-12-01 14:07] LABS: CREATININE 1.1 mg/dL (0.55-1.3)
[2022-12-01 17:50] VITALS: BP 113/77; PULSE 83; RESP 18; TEMP 98.2
[2022-12-01] MEDS ORDERED: PORTA CATH FLUSH 10 ML IVPUSH PRN (17:50)
[2022-12-02 17:07] LABS: FREE KAPPA,SERUM 3.9 mg/L (3.3-19.4)
[2022-12-03 06:08] LABS: KAPPA LAMBDA RATIO URIN >6.81 (1.83-14.26)
[2022-12-04 07:10] LABS: BETA-2-MICROGLOBULIN 2.4 mg/L (0.6-2.4)
== END 2022-12-01 18:41 | disposition home or self-care (01) ==
LOC: J7W 10:32 → JONCCHEMO 10:32
PROVIDERS: ATTEND Internal Medicine Hematology & Oncology
DX: E85.81 Light chain (AL) amyloidosis (principal)
CPT/HCPCS: 36415; 80048; 80076; 82232; 83615; 83735; 83883; 84155; 84165; 84550; 85025; 86335; 93970-TC; 96361; 96367; 96401; 96413; J9041; J9070

== ENCOUNTER 2022-12-09 10:19 | Day surgery (SDC) | payer OTHER ==
[~2022-12-09 10:19] MED LIST changes: +ACETAMINOPHEN 325 MG TABLET (FP) PO ONE; -DEXAMETHASONE SODIUM PHOSPHATE 40 MG in SODIUM CHLORIDE 50 ML IVPB ONE; +DEXAMETHASONE SODIUM PHOSPHATE 40 MG, DIPHENHYDRAMINE 50 MG in SODIUM CHLORIDE 100 ML IVPB ONE
[2022-12-09] MEDS ORDERED: DARATUMUMAB-HYALURONIDASE-FIHJ (FASPRO) 15 ML VIAL SQ ONE (10:30)
[2022-12-09] MEDS ORDERED: BORTEZOMIB 2.5 MG/ML SUB-Q INJECTION SQ ONE (10:45)
[2022-12-09 10:48] LABS: BASO % 1.1 % (0-2.0); EOS % 1.4 % (0-4.5); HEMATOCRIT 35.7 % (35.4-49); HEMOGLOBIN 12.3 GM/dL (11.7-16.9); LYMPH % 9.6 % (8-40); MCH 30.3 pg (25.7-33.7); MCHC 34.4 g/dl (32.0-35.9); MEAN CELL VOLUME 88.2 fl (80-96); MEAN PLT VOLUME 8.8 fl (7.5-11.1); MONO % 7.6 % (3.8-10.2); NEUT % 80.3 % (42.8-82.8); PLATELET COUNT 154 10^3/uL (134-434); RBC 4.05 M/mm3 (4.00-5.60); RDW 19.9 % (11.9-15.9); WHITE BLOOD COUNT 8.2 K/mm3 (4.0-10.0)
[2022-12-09 11:00] LABS: POTASSIUM 4.3 mmol/L (3.5-5.1)
[2022-12-09] MEDS ORDERED: SODIUM CHLORIDE 250 ML IV ONE (11:00)
[2022-12-09 11:02] LABS: ALBUMIN 4.1 g/dl (3.4-5.0); CALCIUM 9.1 mg/dL (8.5-10.1); MAGNESIUM 2.2 mg/dL (1.8-2.4)
[2022-12-09 11:05] LABS: BILIRUBIN,DIRECT 0.1 mg/dL (0.0-0.2); CREATININE 1.4 mg/dL (0.55-1.3); URIC ACID 4.1 mg/dL (2.6-7.2)
[2022-12-09 11:07] LABS: BILIRUBIN,TOTAL 0.6 mg/dL (0.2-1); TOT PROT 6.5 g/dl (6.4-8.2)
[2022-12-09] MEDS ORDERED: INSULIN (NOVOLOG) ASPART 100 UNITS/ML 10ML VIAL SQ ONE (11:45)
[2022-12-09 16:57] VITALS: TEMP 97.9
[2022-12-09 17:02] VITALS: BP 125/75; PULSE 82; RESP 18
[2022-12-09] MEDS ORDERED: PORTA CATH FLUSH 10 ML IVPUSH PRN (17:02)
== END 2022-12-09 16:20 | disposition home or self-care (01) ==
LOC: J7W 10:19 → JONCCHEMO 10:19
PROVIDERS: ATTEND Internal Medicine Hematology & Oncology
DX: Z51.11 Encounter for antineoplastic chemotherapy (principal); C90.00 Multiple myeloma not having achieved remission
CPT/HCPCS: 36415; 80048; 80076; 83615; 83735; 84550; 85025; 90471; 96361; 96367; 96413; J9041; J9070; J9144

== ENCOUNTER 2022-12-15 09:56 | Day surgery (SDC) | payer OTHER ==
[~2022-12-15 09:56] MED LIST changes: -ACETAMINOPHEN 325 MG TABLET (FP) PO ONE; -CYCLOPHOSPHAMIDE IVPB ONE; +DEXAMETHASONE SODIUM PHOSPHATE 40 MG in SODIUM CHLORIDE 50 ML IVPB ONE; -DEXAMETHASONE SODIUM PHOSPHATE 40 MG, DIPHENHYDRAMINE 50 MG in SODIUM CHLORIDE 100 ML IVPB ONE; -SODIUM CHLORIDE IVPB ONE
[2022-12-15] MEDS ORDERED: SODIUM CHLORIDE IVPB ONE (10:00)
[2022-12-15] MEDS ORDERED: CYCLOPHOSPHAMIDE IVPB ONE (10:00)
[2022-12-15 10:38] LABS: BASO % 0.4 % (0-2.0); EOS % 1.6 % (0-4.5); HEMATOCRIT 36.3 % (35.4-49); HEMOGLOBIN 12.4 GM/dL (11.7-16.9); LYMPH % 7.9 % (8-40); MCH 30.2 pg (25.7-33.7); MCHC 34.1 g/dl (32.0-35.9); MEAN CELL VOLUME 88.6 fl (80-96); MEAN PLT VOLUME 8.7 fl (7.5-11.1); MONO % 5.2 % (3.8-10.2); NEUT % 84.9 % (42.8-82.8); PLATELET COUNT 177 10^3/uL (134-434); RDW 19.9 % (11.9-15.9); WHITE BLOOD COUNT 9.8 K/mm3 (4.0-10.0)
[2022-12-15 11:05] LABS: CALCIUM 8.5 mg/dL (8.5-10.1)
[2022-12-15 11:06] LABS: BLOOD UREA NITROGEN 30.6 mg/dL (7-18); MAGNESIUM 2.2 mg/dL (1.8-2.4)
[2022-12-15 11:08] LABS: URIC ACID 4.5 mg/dL (2.6-7.2)
[2022-12-15 11:09] LABS: CREATININE 1.2 mg/dL (0.55-1.3)
[2022-12-15 11:12] LABS: ALBUMIN 4.2 g/dl (3.4-5.0)
[2022-12-15 11:15] LABS: BILIRUBIN,DIRECT 0.2 mg/dL (0.0-0.2)
[2022-12-15 11:17] LABS: TOT PROT 6.3 g/dl (6.4-8.2)
[2022-12-15] MEDS ORDERED: SODIUM CHLORIDE 250 ML IV ONE (12:00)
[2022-12-15 16:49] VITALS: RESP 18; TEMP 98.1
[2022-12-15 16:52] VITALS: BP 118/59; PULSE 75
[2022-12-15] MEDS ORDERED: PORTA CATH FLUSH 10 ML IVPUSH PRN (16:52)
== END 2022-12-15 16:20 | disposition home or self-care (01) ==
LOC: JONCCHEMO 09:56 → J7W 10:05 → JONCCHEMO 16:20
PROVIDERS: ATTEND Internal Medicine Hematology & Oncology
DX: Z51.11 Encounter for antineoplastic chemotherapy (principal); E85.81 Light chain (AL) amyloidosis; C90.00 Multiple myeloma not having achieved remission
CPT/HCPCS: 36415; 80048; 80076; 83615; 83735; 84550; 85025; 96361; 96375; 96413; 96415; J9070

== ENCOUNTER 2023-01-06 08:12 | Day surgery (SDC) | payer OTHER ==
[2023-01-06] MEDS ORDERED: SODIUM CHLORIDE 250 ML IV ONE ×2 (09:00→12:30)
[2023-01-06 09:30] LABS: EOS % 2.1 % (0-4.5); HEMATOCRIT 36.5 % (35.4-49); HEMOGLOBIN 12.7 GM/dL (11.7-16.9); LYMPH % 9.3 % (8-40); MCH 30.9 pg (25.7-33.7); MCHC 34.9 g/dl (32.0-35.9); MEAN CELL VOLUME 88.6 fl (80-96); MEAN PLT VOLUME 8.8 fl (7.5-11.1); MONO % 8.4 % (3.8-10.2); NEUT % 79.2 % (42.8-82.8); PLATELET COUNT 175 10^3/uL (134-434); RBC 4.12 M/mm3 (4.00-5.60); RDW 18.9 % (11.9-15.9)
[2023-01-06 09:51] LABS: ALBUMIN 4.1 g/dl (3.4-5.0); BLOOD UREA NITROGEN 24.8 mg/dL (7-18); MAGNESIUM 2.2 mg/dL (1.8-2.4)
[2023-01-06 09:53] LABS: BILIRUBIN,DIRECT 0.2 mg/dL (0.0-0.2); URIC ACID 4.8 mg/dL (2.6-7.2)
[2023-01-06 09:54] LABS: CREATININE 1.2 mg/dL (0.55-1.3)
[2023-01-06 09:55] LABS: BILIRUBIN,TOTAL 0.7 mg/dL (0.2-1); TOT PROT 6.6 g/dl (6.4-8.2)
[2023-01-06] MEDS ORDERED: DEXAMETHASONE SODIUM PHOSPHATE 40 MG in SODIUM CHLORIDE 50 ML IVPB ONE (10:00)
[2023-01-06] MEDS ORDERED: CYCLOPHOSPHAMIDE IVPB ONE (10:30)
[2023-01-06] MEDS ORDERED: BORTEZOMIB 2.5 MG/ML SUB-Q INJECTION SQ ONE (10:30)
[2023-01-06] MEDS ORDERED: SODIUM CHLORIDE IVPB ONE (10:30)
[2023-01-06 15:55] VITALS: BP 117/63; PULSE 89; RESP 20; TEMP 98.3
[2023-01-06] MEDS ORDERED: PORTA CATH FLUSH 10 ML IVPUSH PRN (15:55)
== END 2023-01-06 15:00 | disposition home or self-care (01) ==
LOC: JONCCHEMO 08:12 → J7W 08:13 → JONCCHEMO 15:00
PROVIDERS: ATTEND Internal Medicine Hematology & Oncology
DX: Z51.11 Encounter for antineoplastic chemotherapy (principal); E85.81 Light chain (AL) amyloidosis
CPT/HCPCS: 36415; 80048; 80076; 83615; 83735; 84550; 85025; 96367; 96413; 96415; J9041; J9070

== ENCOUNTER 2023-01-12 09:47 | Day surgery (SDC) | payer OTHER ==
[2023-01-12] MEDS ORDERED: SODIUM CHLORIDE 250 ML IV ONE ×2 (10:00→13:30)
[2023-01-12] MEDS ORDERED: DEXAMETHASONE SODIUM PHOSPHATE 40 MG in SODIUM CHLORIDE 50 ML IVPB ONE (11:00)
[2023-01-12 11:14] LABS: BASO % 1.4 % (0-2.0); EOS % 1.9 % (0-4.5); HEMATOCRIT 39.9 % (35.4-49); HEMOGLOBIN 13.3 GM/dL (11.7-16.9); LYMPH % 10.6 % (8-40); MCH 30.7 pg (25.7-33.7); MCHC 33.2 g/dl (32.0-35.9); MEAN CELL VOLUME 92.3 fl (80-96); MEAN PLT VOLUME 9.6 fl (7.5-11.1); MONO % 6.3 % (3.8-10.2); NEUT % 79.8 % (42.8-82.8); PLATELET COUNT 181 10^3/uL (134-434); RBC 4.32 M/mm3 (4.00-5.60); WHITE BLOOD COUNT 7.5 K/mm3 (4.0-10.0)
[2023-01-12] MEDS ORDERED: CYCLOPHOSPHAMIDE IVPB ONE (11:30)
[2023-01-12] MEDS ORDERED: SODIUM CHLORIDE IVPB ONE (11:30)
[2023-01-12 11:40] LABS: POTASSIUM 4.2 mmol/L (3.5-5.1)
[2023-01-12 11:43] LABS: ALBUMIN 4.1 g/dl (3.4-5.0); BLOOD UREA NITROGEN 26.8 mg/dL (7-18); CALCIUM 8.7 mg/dL (8.5-10.1)
[2023-01-12 11:46] LABS: BILIRUBIN,DIRECT 0.1 mg/dL (0.0-0.2); CREATININE 1.3 mg/dL (0.55-1.3); URIC ACID 4.5 mg/dL (2.6-7.2)
[2023-01-12 11:48] LABS: BILIRUBIN,TOTAL 0.5 mg/dL (0.2-1); TOT PROT 6.7 g/dl (6.4-8.2)
[2023-01-12 16:50] VITALS: RESP 18; TEMP 98.4
[2023-01-12 16:56] VITALS: BP 131/70; PULSE 90
[2023-01-12] MEDS ORDERED: PORTA CATH FLUSH 10 ML IVPUSH PRN (16:56)
== END 2023-01-12 15:45 | disposition home or self-care (01) ==
LOC: JONCCHEMO 09:47 → J7W 09:50 → JONCCHEMO 15:45
PROVIDERS: ATTEND Internal Medicine Hematology & Oncology
DX: Z51.11 Encounter for antineoplastic chemotherapy (principal); E85.81 Light chain (AL) amyloidosis
CPT/HCPCS: 80048; 80076; 84550; 85025; 96375; 96413; 96415; J9070

== ENCOUNTER 2023-01-19 10:15 | Day surgery (SDC) | payer OTHER ==
[~2023-01-19 10:15] MED LIST changes: +ACETAMINOPHEN 325 MG TABLET (FP) PO ONE; -DEXAMETHASONE SODIUM PHOSPHATE 40 MG in SODIUM CHLORIDE 50 ML IVPB ONE; +DEXAMETHASONE SODIUM PHOSPHATE 40 MG, DIPHENHYDRAMINE 50 MG in SODIUM CHLORIDE 100 ML IVPB ONE
[2023-01-19] MEDS ORDERED: BORTEZOMIB 2.5 MG/ML SUB-Q INJECTION SQ ONE (10:30)
[2023-01-19] MEDS ORDERED: CYCLOPHOSPHAMIDE IVPB ONE (10:30)
[2023-01-19] MEDS ORDERED: SODIUM CHLORIDE IVPB ONE (10:30)
[2023-01-19] MEDS ORDERED: DARATUMUMAB-HYALURONIDASE-FIHJ (FASPRO) 15 ML VIAL SQ ONE (10:30)
[2023-01-19 11:10] LABS: EOS % 2.1 % (0-4.5); HEMATOCRIT 37.2 % (35.4-49); LYMPH % 6.2 % (8-40); MCH 31.7 pg (25.7-33.7); MCHC 35.1 g/dl (32.0-35.9); MEAN CELL VOLUME 90.5 fl (80-96); MEAN PLT VOLUME 8.7 fl (7.5-11.1); MONO % 6.1 % (3.8-10.2); NEUT % 84.6 % (42.8-82.8); PLATELET COUNT 195 10^3/uL (134-434); RBC 4.11 M/mm3 (4.00-5.60); RDW 19.2 % (11.9-15.9); WHITE BLOOD COUNT 10.8 K/mm3 (4.0-10.0)
[2023-01-19 11:17] LABS: MAGNESIUM 2.1 mg/dL (1.8-2.4)
[2023-01-19 11:20] LABS: BILIRUBIN,DIRECT 0.2 mg/dL (0.0-0.2); URIC ACID 3.9 mg/dL (2.6-7.2)
[2023-01-19 11:22] LABS: BILIRUBIN,TOTAL 0.6 mg/dL (0.2-1); TOT PROT 6.5 g/dl (6.4-8.2)
[2023-01-19 12:11] LABS: POTASSIUM 4.2 mmol/L (3.5-5.1)
[2023-01-19 12:13] LABS: CALCIUM 8.7 mg/dL (8.5-10.1)
[2023-01-19 12:14] LABS: BLOOD UREA NITROGEN 24.9 mg/dL (7-18)
[2023-01-19] MEDS ORDERED: SODIUM CHLORIDE 250 ML IV ONE (12:30)
[2023-01-19] MEDS ORDERED: ACETAMINOPHEN 325 MG TABLET (FP) ONE (12:32)
[2023-01-19] MEDS ORDERED: ACETAMINOPHEN 325 MG TABLET (FP) PO ONE (12:45)
[2023-01-19 18:05] VITALS: RESP 18; TEMP 98.3
[2023-01-19] MEDS ORDERED: PORTA CATH FLUSH 10 ML IVPUSH PRN (18:14)
[2023-01-19 18:15] VITALS: BP 117/65; PULSE 86
[2023-01-20 18:11] LABS: FREE KAPPA,SERUM 3.6 mg/L (3.3-19.4)
[2023-01-21 06:06] LABS: FREE KAP CHN UR 3.07 mg/L (1.17-86.46); KAPPA LAMBDA RATIO URIN 3.94 (1.83-14.26)
== END 2023-01-19 16:30 | disposition home or self-care (01) ==
LOC: JONCCHEMO 10:15 → J7W 10:17 → JONCCHEMO 16:30
PROVIDERS: ATTEND Internal Medicine Hematology & Oncology
DX: E85.9 Amyloidosis, unspecified (principal)
CPT/HCPCS: 36415; 80048; 80076; 82784; 83615; 83735; 83883; 84155; 84165; 84550; 85025; 86335; 96367; 96401; 96413; 96415; J9041; J9070; J9144

== ENCOUNTER 2023-01-26 09:43 | Day surgery (SDC) | payer OTHER ==
[~2023-01-26 09:43] MED LIST changes: -ACETAMINOPHEN 325 MG TABLET (FP) PO ONE; +DEXAMETHASONE SODIUM PHOSPHATE 40 MG in SODIUM CHLORIDE 50 ML IVPB ONE; -DEXAMETHASONE SODIUM PHOSPHATE 40 MG, DIPHENHYDRAMINE 50 MG in SODIUM CHLORIDE 100 ML IVPB ONE
[2023-01-26] MEDS ORDERED: SODIUM CHLORIDE IVPB ONE (10:00)
[2023-01-26] MEDS ORDERED: BORTEZOMIB 2.5 MG/ML SUB-Q INJECTION SQ ONE (10:00)
[2023-01-26] MEDS ORDERED: CYCLOPHOSPHAMIDE IVPB ONE (10:00)
[2023-01-26 10:21] LABS: BASO % 0.8 % (0-2.0); EOS % 1.6 % (0-4.5); HEMATOCRIT 36.5 % (35.4-49); HEMOGLOBIN 12.8 GM/dL (11.7-16.9); LYMPH % 7.1 % (8-40); MCH 31.8 pg (25.7-33.7); MCHC 35.2 g/dl (32.0-35.9); MEAN CELL VOLUME 90.6 fl (80-96); MEAN PLT VOLUME 8.9 fl (7.5-11.1); MONO % 6.6 % (3.8-10.2); NEUT % 83.9 % (42.8-82.8); PLATELET COUNT 173 10^3/uL (134-434); RBC 4.02 M/mm3 (4.00-5.60); WHITE BLOOD COUNT 9.7 K/mm3 (4.0-10.0)
[2023-01-26 11:06] LABS: POTASSIUM 4.1 mmol/L (3.5-5.1)
[2023-01-26 11:08] LABS: MAGNESIUM 1.9 mg/dL (1.8-2.4)
[2023-01-26 11:11] LABS: BLOOD UREA NITROGEN 28.2 mg/dL (7-18); URIC ACID 4.3 mg/dL (2.6-7.2)
[2023-01-26 11:12] LABS: CREATININE 1.2 mg/dL (0.55-1.3)
[2023-01-26 11:13] LABS: TOT PROT 6.4 g/dl (6.4-8.2)
[2023-01-26 11:14] LABS: BILIRUBIN,DIRECT 0.1 mg/dL (0.0-0.2)
[2023-01-26 11:16] LABS: BILIRUBIN,TOTAL 0.7 mg/dL (0.2-1)
[2023-01-26] MEDS ORDERED: SODIUM CHLORIDE 250 ML IV ONE (12:00)
[2023-01-26 16:35] VITALS: BP 118/64; PULSE 89; RESP 20; TEMP 98
[2023-01-26] MEDS ORDERED: PORTA CATH FLUSH 10 ML IVPUSH PRN (16:45)
== END 2023-01-26 16:40 | disposition home or self-care (01) ==
LOC: JONCCHEMO 09:43 → J7W 09:44 → JONCCHEMO 16:40
PROVIDERS: ATTEND Internal Medicine Hematology & Oncology
DX: E85.81 Light chain (AL) amyloidosis (principal)
CPT/HCPCS: 36415; 80048; 80076; 83615; 83735; 84550; 85025; 96375; 96401; 96413; 96415; J9041; J9070

== ENCOUNTER 2023-02-09 11:09 | Day surgery (SDC) | payer OTHER ==
[~2023-02-09 11:09] MED LIST changes: +CYCLOPHOSPHAMIDE IVPB ONE; +SODIUM CHLORIDE IVPB ONE
[2023-02-09 11:42] LABS: BASO % 0.5 % (0-2.0); EOS % 1.6 % (0-4.5); HEMATOCRIT 36.8 % (35.4-49); HEMOGLOBIN 12.8 GM/dL (11.7-16.9); LYMPH % 8.4 % (8-40); MCH 31.6 pg (25.7-33.7); MCHC 34.7 g/dl (32.0-35.9); MEAN CELL VOLUME 90.9 fl (80-96); NEUT % 81.5 % (42.8-82.8); PLATELET COUNT 190 10^3/uL (134-434); RBC 4.05 M/mm3 (4.00-5.60); RDW 18.9 % (11.9-15.9)
[2023-02-09] MEDS ORDERED: SODIUM CHLORIDE 250 ML IV ONE (12:00)
[2023-02-09 12:07] LABS: POTASSIUM 4.4 mmol/L (3.5-5.1)
[2023-02-09 12:09] LABS: BLOOD UREA NITROGEN 23.8 mg/dL (7-18)
[2023-02-09 12:10] LABS: MAGNESIUM 2.3 mg/dL (1.8-2.4)
[2023-02-09 12:12] LABS: BILIRUBIN,DIRECT 0.2 mg/dL (0.0-0.2); CREATININE 1.2 mg/dL (0.55-1.3)
[2023-02-09 12:14] LABS: BILIRUBIN,TOTAL 0.7 mg/dL (0.2-1); TOT PROT 6.4 g/dl (6.4-8.2)
[2023-02-09 17:16] VITALS: BP 112/60; PULSE 88; RESP 20; TEMP 97.6
[2023-02-09] MEDS ORDERED: PORTA CATH FLUSH 10 ML IVPUSH PRN (17:16)
== END 2023-02-09 17:00 | disposition home or self-care (01) ==
LOC: JONCCHEMO 11:09 → J7W 11:09 → JONCCHEMO 17:00
PROVIDERS: ATTEND Internal Medicine Hematology & Oncology
DX: E85.89 Other amyloidosis (principal)
CPT/HCPCS: 36415; 80048; 80076; 83615; 83735; 84550; 85025; 96375; 96413; 96415; J9070

== ENCOUNTER 2023-02-16 10:23 | Day surgery (SDC) | payer OTHER ==
[~2023-02-16 10:23] MED LIST changes: +ACETAMINOPHEN 325 MG TABLET (FP) PO ONE; -DEXAMETHASONE SODIUM PHOSPHATE 40 MG in SODIUM CHLORIDE 50 ML IVPB ONE; +DEXAMETHASONE SODIUM PHOSPHATE 40 MG, DIPHENHYDRAMINE 50 MG in SODIUM CHLORIDE 100 ML IVPB ONE
[2023-02-16 11:00] LABS: BASO % 1.3 % (0-2.0); EOS % 2.1 % (0-4.5); HEMATOCRIT 40.8 % (35.4-49); HEMOGLOBIN 13.2 GM/dL (11.7-16.9); MCH 30.5 pg (25.7-33.7); MCHC 32.3 g/dl (32.0-35.9); MEAN CELL VOLUME 94.3 fl (80-96); MEAN PLT VOLUME 8.8 fl (7.5-11.1); MONO % 7.9 % (3.8-10.2); NEUT % 79.7 % (42.8-82.8); PLATELET COUNT 222 10^3/uL (134-434); RBC 4.33 M/mm3 (4.00-5.60); RDW 18.7 % (11.9-15.9); WHITE BLOOD COUNT 7.6 K/mm3 (4.0-10.0)
[2023-02-16 11:21] LABS: POTASSIUM 4.2 mmol/L (3.5-5.1)
[2023-02-16 11:24] LABS: CALCIUM 9.7 mg/dL (8.5-10.1); MAGNESIUM 2.2 mg/dL (1.8-2.4)
[2023-02-16 11:25] LABS: ALBUMIN 4.4 g/dl (3.4-5.0); BLOOD UREA NITROGEN 28.7 mg/dL (7-18)
[2023-02-16 11:27] LABS: CREATININE 1.1 mg/dL (0.55-1.3)
[2023-02-16 11:28] LABS: BILIRUBIN,DIRECT 0.2 mg/dL (0.0-0.2)
[2023-02-16 11:29] LABS: BILIRUBIN,TOTAL 0.7 mg/dL (0.2-1)
[2023-02-16 11:35] LABS: URIC ACID 4.1 mg/dL (2.6-7.2)
[2023-02-16] MEDS ORDERED: DARATUMUMAB-HYALURONIDASE-FIHJ (FASPRO) 15 ML VIAL SQ ONE (12:00)
[2023-02-16] MEDS ORDERED: BORTEZOMIB 2.5 MG/ML SUB-Q INJECTION SQ ONE (12:10)
[2023-02-16] MEDS ORDERED: SODIUM CHLORIDE 250 ML IV ONE (12:30)
[2023-02-16 19:19] VITALS: RESP 18; TEMP 98.2
[2023-02-16] MEDS ORDERED: PORTA CATH FLUSH 10 ML IVPUSH PRN (19:31)
[2023-02-16 19:32] VITALS: BP 117/61; PULSE 91
[2023-02-17 18:10] LABS: FREE KAPPA,SERUM 3.4 mg/L (3.3-19.4)
[2023-02-19 08:06] LABS: FREE KAP CHN UR 3.37 mg/L (1.17-86.46)
== END 2023-02-16 16:30 | disposition home or self-care (01) ==
LOC: JONCCHEMO 10:23 → J7W 10:25 → JONCCHEMO 16:30
PROVIDERS: ATTEND Internal Medicine Hematology & Oncology
DX: E85.89 Other amyloidosis (principal)
CPT/HCPCS: 36415; 80048; 80076; 82232; 82784; 83615; 83735; 83883; 84155; 84165; 84550; 85025; 86335; 96367; 96401; 96413; J9041; J9070; J9144

== ENCOUNTER 2023-02-23 09:40 | Day surgery (SDC) | payer OTHER ==
[~2023-02-23 09:40] MED LIST changes: -ACETAMINOPHEN 325 MG TABLET (FP) PO ONE; -CYCLOPHOSPHAMIDE IVPB ONE; -DEXAMETHASONE SODIUM PHOSPHATE 40 MG, DIPHENHYDRAMINE 50 MG in SODIUM CHLORIDE 100 ML IVPB ONE; -SODIUM CHLORIDE IVPB ONE
[2023-02-23] MEDS ORDERED: DEXAMETHASONE SODIUM PHOSPHATE 40 MG in SODIUM CHLORIDE 50 ML IVPB ONE (10:00)
[2023-02-23 10:09] LABS: BASO % 2.3 % (0-2.0); EOS % 2.2 % (0-4.5); HEMATOCRIT 39.8 % (35.4-49); HEMOGLOBIN 13.1 GM/dL (11.7-16.9); LYMPH % 6.7 % (8-40); MCHC 32.9 g/dl (32.0-35.9); MEAN CELL VOLUME 94.3 fl (80-96); MEAN PLT VOLUME 8.7 fl (7.5-11.1); MONO % 6.5 % (3.8-10.2); NEUT % 82.3 % (42.8-82.8); PLATELET COUNT 178 10^3/uL (134-434); RBC 4.22 M/mm3 (4.00-5.60); RDW 18.7 % (11.9-15.9); WHITE BLOOD COUNT 8.9 K/mm3 (4.0-10.0)
[2023-02-23] MEDS ORDERED: CYCLOPHOSPHAMIDE IVPB ONE (10:30)
[2023-02-23] MEDS ORDERED: SODIUM CHLORIDE IVPB ONE (10:30)
[2023-02-23] MEDS ORDERED: BORTEZOMIB 2.5 MG/ML SUB-Q INJECTION SQ ONE (10:30)
[2023-02-23 10:51] LABS: POTASSIUM 4.2 mmol/L (3.5-5.1)
[2023-02-23 10:53] LABS: CALCIUM 8.9 mg/dL (8.5-10.1); MAGNESIUM 2.3 mg/dL (1.8-2.4)
[2023-02-23 10:56] LABS: BILIRUBIN,DIRECT 0.2 mg/dL (0.0-0.2); CREATININE 1.2 mg/dL (0.55-1.3); URIC ACID 4.3 mg/dL (2.6-7.2)
[2023-02-23 10:58] LABS: BILIRUBIN,TOTAL 0.8 mg/dL (0.2-1); TOT PROT 6.5 g/dl (6.4-8.2)
[2023-02-23] MEDS ORDERED: INSULIN (NOVOLOG) ASPART 100 UNITS/ML 10ML VIAL SQ ONE (11:33)
[2023-02-23] MEDS ORDERED: SODIUM CHLORIDE 250 ML IV ONE (12:30)
[2023-02-23 16:15] VITALS: BP 129/70; PULSE 97; RESP 18; TEMP 97.8
[2023-02-23] MEDS ORDERED: PORTA CATH FLUSH 10 ML IVPUSH PRN (16:16)
== END 2023-02-23 15:30 | disposition home or self-care (01) ==
LOC: JONCCHEMO 09:40 → J7W 09:44 → JONCCHEMO 15:30
PROVIDERS: ATTEND Internal Medicine Hematology & Oncology
DX: E85.89 Other amyloidosis (principal); Z76.89 Persons encountering health services in other specified circumstances
CPT/HCPCS: 36415; 80048; 80076; 83615; 83735; 84550; 85025; 96375; 96401; 96413; 96415; J9041; J9070

== ENCOUNTER 2023-03-02 10:03 | Day surgery (SDC) | payer OTHER ==
[~2023-03-02 10:03] MED LIST changes: +CYCLOPHOSPHAMIDE IVPB ONE; +DEXAMETHASONE SODIUM PHOSPHATE 40 MG in SODIUM CHLORIDE 50 ML IVPB ONE; +SODIUM CHLORIDE IVPB ONE
[2023-03-02 10:30] LABS: BASO % 0.7 % (0-2.0); EOS % 0.9 % (0-4.5); HEMATOCRIT 37.1 % (35.4-49); LYMPH % 4.1 % (8-40); MCH 30.6 pg (25.7-33.7); MCHC 32.4 g/dl (32.0-35.9); MEAN CELL VOLUME 94.5 fl (80-96); MEAN PLT VOLUME 9.1 fl (7.5-11.1); MONO % 7.7 % (3.8-10.2); NEUT % 86.6 % (42.8-82.8); PLATELET COUNT 210 10^3/uL (134-434); RBC 3.92 M/mm3 (4.00-5.60); RDW 17.8 % (11.9-15.9); WHITE BLOOD COUNT 12.9 K/mm3 (4.0-10.0)
[2023-03-02] MEDS ORDERED: BORTEZOMIB 2.5 MG/ML SUB-Q INJECTION SQ ONE (10:30)
[2023-03-02 10:57] LABS: POTASSIUM 4.3 mmol/L (3.5-5.1)
[2023-03-02 10:59] LABS: CALCIUM 8.9 mg/dL (8.5-10.1); MAGNESIUM 2.2 mg/dL (1.8-2.4)
[2023-03-02 11:00] LABS: ALBUMIN 3.7 g/dl (3.4-5.0); BLOOD UREA NITROGEN 22.3 mg/dL (7-18)
[2023-03-02 11:01] LABS: URIC ACID 3.9 mg/dL (2.6-7.2)
[2023-03-02 11:02] LABS: BILIRUBIN,DIRECT 0.4 mg/dL (0.0-0.2); CREATININE 1.1 mg/dL (0.55-1.3)
[2023-03-02 11:03] LABS: TOT PROT 6.4 g/dl (6.4-8.2)
[2023-03-02 11:05] LABS: BILIRUBIN,TOTAL 1.4 mg/dL (0.2-1)
[2023-03-02] MEDS ORDERED: INSULIN (NOVOLOG) ASPART 100 UNITS/ML 10ML VIAL SQ ONE (11:09)
[2023-03-02] MEDS ORDERED: SODIUM CHLORIDE 250 ML IV ONE (12:00)
[2023-03-02 16:33] VITALS: BP 103/67; PULSE 18; RESP 103; TEMP 97.7
[2023-03-02] MEDS ORDERED: PORTA CATH FLUSH 10 ML IVPUSH PRN (16:33)
== END 2023-03-02 16:36 | disposition home or self-care (01) ==
LOC: JONCCHEMO 10:03 → J7W 11:00 → JONCCHEMO 16:36
PROVIDERS: ATTEND Internal Medicine Hematology & Oncology
DX: Z51.11 Encounter for antineoplastic chemotherapy (principal); E85.81 Light chain (AL) amyloidosis
CPT/HCPCS: 36415; 80048; 80076; 83615; 83735; 84550; 85025; 96367; 96401; 96413; 96415; J9041; J9070

== ENCOUNTER 2023-03-09 09:33 | Day surgery (SDC) | payer OTHER ==
[~2023-03-09 09:33] MED LIST changes: -CYCLOPHOSPHAMIDE IVPB ONE; -DEXAMETHASONE SODIUM PHOSPHATE 40 MG in SODIUM CHLORIDE 50 ML IVPB ONE; -SODIUM CHLORIDE IVPB ONE
[2023-03-09] MEDS ORDERED: DEXAMETHASONE SODIUM PHOSPHATE 40 MG in SODIUM CHLORIDE 50 ML IVPB ONE (10:00)
[2023-03-09 10:09] LABS: EOS % 2.5 % (0-4.5); HEMATOCRIT 37.8 % (35.4-49); HEMOGLOBIN 12.7 GM/dL (11.7-16.9); LYMPH % 7.1 % (8-40); MCH 31.6 pg (25.7-33.7); MCHC 33.5 g/dl (32.0-35.9); MEAN CELL VOLUME 94.3 fl (80-96); MEAN PLT VOLUME 8.5 fl (7.5-11.1); MONO % 7.2 % (3.8-10.2); NEUT % 82.2 % (42.8-82.8); PLATELET COUNT 229 10^3/uL (134-434); RBC 4.01 M/mm3 (4.00-5.60); RDW 17.4 % (11.9-15.9); WHITE BLOOD COUNT 8.3 K/mm3 (4.0-10.0)
[2023-03-09] MEDS ORDERED: CYCLOPHOSPHAMIDE IVPB ONE (10:30)
[2023-03-09] MEDS ORDERED: SODIUM CHLORIDE IVPB ONE (10:30)
[2023-03-09 10:32] LABS: CALCIUM 8.9 mg/dL (8.5-10.1)
[2023-03-09 10:33] LABS: ALBUMIN 3.7 g/dl (3.4-5.0); BLOOD UREA NITROGEN 25.5 mg/dL (7-18); MAGNESIUM 2.2 mg/dL (1.8-2.4)
[2023-03-09 10:36] LABS: BILIRUBIN,DIRECT 0.2 mg/dL (0.0-0.2); CREATININE 1.2 mg/dL (0.55-1.3)
[2023-03-09 10:37] LABS: BILIRUBIN,TOTAL 0.7 mg/dL (0.2-1)
[2023-03-09 10:38] LABS: TOT PROT 6.5 g/dl (6.4-8.2)
[2023-03-09] MEDS ORDERED: SODIUM CHLORIDE 250 ML IV ONE (12:30)
[2023-03-09 15:58] VITALS: BP 105/69; PULSE 92; RESP 18; TEMP 97.9
[2023-03-09] MEDS ORDERED: PORTA CATH FLUSH 10 ML IVPUSH PRN (15:58)
== END 2023-03-09 15:45 | disposition home or self-care (01) ==
LOC: JONCCHEMO 09:33 → J7W 09:36 → JONCCHEMO 15:45
PROVIDERS: ATTEND Internal Medicine Hematology & Oncology
DX: Z51.11 Encounter for antineoplastic chemotherapy (principal); E85.81 Light chain (AL) amyloidosis
CPT/HCPCS: 36415; 80048; 80076; 83615; 83735; 84550; 85025; 96375; 96413; 96415; J9070

== ENCOUNTER 2023-03-16 09:46 | Day surgery (SDC) | payer OTHER ==
[2023-03-16] MEDS ORDERED: DEXAMETHASONE SODIUM PHOSPHATE 40 MG, DIPHENHYDRAMINE 50 MG in SODIUM CHLORIDE 100 ML IVPB ONE (10:00)
[2023-03-16] MEDS ORDERED: ACETAMINOPHEN 325 MG TABLET (FP) PO ONE (10:00)
[2023-03-16 10:18] LABS: BASO % 0.8 % (0-2.0); EOS % 1.8 % (0-4.5); HEMATOCRIT 37.5 % (35.4-49); HEMOGLOBIN 12.6 GM/dL (11.7-16.9); LYMPH % 7.3 % (8-40); MCH 31.4 pg (25.7-33.7); MCHC 33.6 g/dl (32.0-35.9); MEAN CELL VOLUME 93.2 fl (80-96); MONO % 6.3 % (3.8-10.2); NEUT % 83.8 % (42.8-82.8); PLATELET COUNT 282 10^3/uL (134-434); RBC 4.02 M/mm3 (4.00-5.60); RDW 18.2 % (11.9-15.9); WHITE BLOOD COUNT 8.1 K/mm3 (4.0-10.0)
[2023-03-16] MEDS ORDERED: BORTEZOMIB 2.5 MG/ML SUB-Q INJECTION SQ ONE (10:30)
[2023-03-16] MEDS ORDERED: DARATUMUMAB-HYALURONIDASE-FIHJ (FASPRO) 15 ML VIAL SQ ONE (10:30)
[2023-03-16 10:44] LABS: POTASSIUM 4.2 mmol/L (3.5-5.1)
[2023-03-16 10:47] LABS: ALBUMIN 3.8 g/dl (3.4-5.0); BLOOD UREA NITROGEN 21.8 mg/dL (7-18); CALCIUM 9.8 mg/dL (8.5-10.1); MAGNESIUM 2.1 mg/dL (1.8-2.4)
[2023-03-16 10:49] LABS: BILIRUBIN,DIRECT 0.1 mg/dL (0.0-0.2); CREATININE 1.1 mg/dL (0.55-1.3); URIC ACID 3.5 mg/dL (2.6-7.2)
[2023-03-16 10:51] LABS: BILIRUBIN,TOTAL 0.5 mg/dL (0.2-1); TOT PROT 6.3 g/dl (6.4-8.2)
[2023-03-16] MEDS ORDERED: CYCLOPHOSPHAMIDE IVPB ONE (11:00)
[2023-03-16] MEDS ORDERED: SODIUM CHLORIDE IVPB ONE (11:00)
[2023-03-16] MEDS ORDERED: SODIUM CHLORIDE 250 ML IV ONE (13:00)
[2023-03-16 16:49] VITALS: BP 114/63; PULSE 96; RESP 18; TEMP 98
[2023-03-16] MEDS ORDERED: PORTA CATH FLUSH 10 ML IVPUSH PRN (16:49)
[2023-03-19 06:06] LABS: FREE KAP CHN UR 1.72 mg/L (1.17-86.46)
[2023-03-20 07:07] LABS: BETA-2-MICROGLOBULIN 3.2 mg/L (0.6-2.4)
== END 2023-03-16 15:45 | disposition home or self-care (01) ==
LOC: JONCCHEMO 09:46 → J7W 09:48 → JONCCHEMO 15:45
PROVIDERS: ATTEND Internal Medicine Hematology & Oncology
DX: Z51.11 Encounter for antineoplastic chemotherapy (principal); E85.81 Light chain (AL) amyloidosis
CPT/HCPCS: 36415; 80048; 80076; 82232; 82784; 83615; 83735; 83883; 84155; 84165; 84550; 85025; 86335; 96367; 96401; 96413; 96415; J9041; J9070; J9144

== ENCOUNTER 2023-03-23 09:49 | Day surgery (SDC) | payer OTHER ==
[~2023-03-23 09:49] MED LIST changes: +ACETAMINOPHEN 325 MG TABLET (FP) PO ONE; +DEXAMETHASONE SODIUM PHOSPHATE 40 MG in SODIUM CHLORIDE 50 ML IVPB ONE
[2023-03-23] MEDS ORDERED: SODIUM CHLORIDE IVPB ONE (10:00)
[2023-03-23] MEDS ORDERED: CYCLOPHOSPHAMIDE IVPB ONE (10:00)
[2023-03-23] MEDS ORDERED: BORTEZOMIB 2.5 MG/ML SUB-Q INJECTION SQ ONE (10:30)
[2023-03-23 10:34] LABS: BASO % 0.8 % (0-2.0); HEMATOCRIT 38.7 % (35.4-49); HEMOGLOBIN 12.8 GM/dL (11.7-16.9); MCH 31.1 pg (25.7-33.7); MEAN CELL VOLUME 94.3 fl (80-96); MONO % 8.1 % (3.8-10.2); NEUT % 81.1 % (42.8-82.8); PLATELET COUNT 174 10^3/uL (134-434); RDW 18.8 % (11.9-15.9); WHITE BLOOD COUNT 6.3 K/mm3 (4.0-10.0)
[2023-03-23 10:57] LABS: POTASSIUM 4.2 mmol/L (3.5-5.1)
[2023-03-23 11:00] LABS: BLOOD UREA NITROGEN 25.2 mg/dL (7-18); MAGNESIUM 2.3 mg/dL (1.8-2.4)
[2023-03-23 11:01] LABS: ALBUMIN 3.9 g/dl (3.4-5.0); CALCIUM 9.2 mg/dL (8.5-10.1)
[2023-03-23 11:03] LABS: BILIRUBIN,DIRECT 0.2 mg/dL (0.0-0.2); CREATININE 1.1 mg/dL (0.55-1.3)
[2023-03-23 11:04] LABS: TOT PROT 6.5 g/dl (6.4-8.2)
[2023-03-23 11:05] LABS: BILIRUBIN,TOTAL 0.6 mg/dL (0.2-1); URIC ACID 4.4 mg/dL (2.6-7.2)
[2023-03-23] MEDS ORDERED: SODIUM CHLORIDE 250 ML IV ONE (12:00)
[2023-03-23 17:11] VITALS: BP 110/60; PULSE 89; RESP 18; TEMP 98
[2023-03-23] MEDS ORDERED: PORTA CATH FLUSH 10 ML IVPUSH PRN (17:14)
== END 2023-03-23 15:45 | disposition home or self-care (01) ==
LOC: JONCCHEMO 09:49
PROVIDERS: ATTEND Internal Medicine Hematology & Oncology
DX: Z51.11 Encounter for antineoplastic chemotherapy (principal); E85.81 Light chain (AL) amyloidosis
CPT/HCPCS: 36415; 80048; 80076; 83615; 83735; 84550; 85025; 96375; 96401; 96413; 96415; J9041; J9070

== ENCOUNTER 2023-04-07 09:53 | Day surgery (SDC) | payer OTHER ==
[~2023-04-07 09:53] MED LIST changes: -ACETAMINOPHEN 325 MG TABLET (FP) PO ONE
[2023-04-07] MEDS ORDERED: SODIUM CHLORIDE IVPB ONE (10:00)
[2023-04-07] MEDS ORDERED: CYCLOPHOSPHAMIDE IVPB ONE (10:00)
[2023-04-07 10:35] LABS: BASO % 0.7 % (0-2.0); EOS % 2.4 % (0-4.5); HEMATOCRIT 40.1 % (35.4-49); HEMOGLOBIN 13.1 GM/dL (11.7-16.9); MCH 30.7 pg (25.7-33.7); MCHC 32.6 g/dl (32.0-35.9); MEAN CELL VOLUME 94.2 fl (80-96); MEAN PLT VOLUME 8.4 fl (7.5-11.1); MONO % 8.2 % (3.8-10.2); NEUT % 80.7 % (42.8-82.8); PLATELET COUNT 201 10^3/uL (134-434); RBC 4.26 M/mm3 (4.00-5.60); RDW 17.7 % (11.9-15.9); WHITE BLOOD COUNT 6.3 K/mm3 (4.0-10.0)
[2023-04-07 10:57] LABS: POTASSIUM 4.1 mmol/L (3.5-5.1)
[2023-04-07] MEDS ORDERED: BORTEZOMIB 2.5 MG/ML SUB-Q INJECTION SQ ONE (11:00)
[2023-04-07 11:01] LABS: BLOOD UREA NITROGEN 25.3 mg/dL (7-18)
[2023-04-07 11:02] LABS: CALCIUM 9.3 mg/dL (8.5-10.1)
[2023-04-07 11:03] LABS: CREATININE 1.2 mg/dL (0.55-1.3); MAGNESIUM 2.2 mg/dL (1.8-2.4); URIC ACID 3.8 mg/dL (2.6-7.2)
[2023-04-07 11:04] LABS: BILIRUBIN,DIRECT 0.2 mg/dL (0.0-0.2)
[2023-04-07 11:05] LABS: TOT PROT 6.8 g/dl (6.4-8.2)
[2023-04-07 11:06] LABS: BILIRUBIN,TOTAL 0.8 mg/dL (0.2-1)
[2023-04-07] MEDS ORDERED: SODIUM CHLORIDE 250 ML IV ONE (12:00)
[2023-04-07 17:05] VITALS: BP 129/66; PULSE 90; RESP 20; TEMP 97.9
[2023-04-07] MEDS ORDERED: PORTA CATH FLUSH 10 ML IVPUSH PRN (17:05)
== END 2023-04-07 16:15 | disposition home or self-care (01) ==
LOC: JONCCHEMO 09:53 → J7W 09:55 → JONCCHEMO 16:15
PROVIDERS: ATTEND Internal Medicine Hematology & Oncology
DX: Z51.11 Encounter for antineoplastic chemotherapy (principal); E85.81 Light chain (AL) amyloidosis
CPT/HCPCS: 36415; 80048; 80076; 83615; 83735; 84550; 85025; 96375; 96401; 96413; 96415; J9041; J9070

== ENCOUNTER 2023-04-13 10:21 | Day surgery (SDC) | payer OTHER ==
[~2023-04-13 10:21] MED LIST changes: +CYCLOPHOSPHAMIDE IVPB ONE; +SODIUM CHLORIDE IVPB ONE
[2023-04-13 11:23] LABS: BASO % 1.3 % (0-2.0); EOS % 4.3 % (0-4.5); HEMATOCRIT 39.9 % (35.4-49); HEMOGLOBIN 13.4 GM/dL (11.7-16.9); LYMPH % 20.7 % (8-40); MCH 31.1 pg (25.7-33.7); MCHC 33.6 g/dl (32.0-35.9); MEAN CELL VOLUME 92.4 fl (80-96); MEAN PLT VOLUME 8.5 fl (7.5-11.1); MONO % 13.9 % (3.8-10.2); NEUT % 59.8 % (42.8-82.8); PLATELET COUNT 173 10^3/uL (134-434); RBC 4.31 M/mm3 (4.00-5.60); RDW 17.7 % (11.9-15.9); WHITE BLOOD COUNT 4.5 K/mm3 (4.0-10.0)
[2023-04-13 11:30] LABS: POTASSIUM 4.2 mmol/L (3.5-5.1)
[2023-04-13 11:32] LABS: MAGNESIUM 2.1 mg/dL (1.8-2.4)
[2023-04-13 11:33] LABS: BLOOD UREA NITROGEN 23.7 mg/dL (7-18); CALCIUM 9.6 mg/dL (8.5-10.1)
[2023-04-13 11:36] LABS: BILIRUBIN,DIRECT 0.2 mg/dL (0.0-0.2)
[2023-04-13 11:37] LABS: TOT PROT 6.6 g/dl (6.4-8.2)
[2023-04-13 11:38] LABS: BILIRUBIN,TOTAL 0.7 mg/dL (0.2-1)
[2023-04-13] MEDS ORDERED: SODIUM CHLORIDE 250 ML IV ONE (12:00)
[2023-04-13 15:14] VITALS: TEMP 97.4
[2023-04-13] MEDS ORDERED: PORTA CATH FLUSH 10 ML IVPUSH PRN (15:14)
[2023-04-13 16:30] VITALS: BP 133/88; PULSE 84; RESP 20
== END 2023-04-13 16:35 | disposition home or self-care (01) ==
LOC: JONCCHEMO 10:21 → J7W 10:30 → JONCCHEMO 16:35
PROVIDERS: ATTEND Internal Medicine Hematology & Oncology
DX: Z51.11 Encounter for antineoplastic chemotherapy (principal); E85.81 Light chain (AL) amyloidosis
CPT/HCPCS: 36415; 80048; 80076; 83615; 83735; 84550; 85025; 96367; 96413; 96415; J9070

== ENCOUNTER 2023-04-21 10:21 | Day surgery (SDC) | payer OTHER ==
[~2023-04-21 10:21] MED LIST changes: +ACETAMINOPHEN 325 MG TABLET (FP) PO ONE; -DEXAMETHASONE SODIUM PHOSPHATE 40 MG in SODIUM CHLORIDE 50 ML IVPB ONE; +DEXAMETHASONE SODIUM PHOSPHATE 40 MG, DIPHENHYDRAMINE 50 MG in SODIUM CHLORIDE 100 ML IVPB ONE
[2023-04-21 10:53] LABS: BASO % 0.6 % (0-2.0); EOS % 1.9 % (0-4.5); HEMATOCRIT 41.4 % (35.4-49); HEMOGLOBIN 13.7 GM/dL (11.7-16.9); LYMPH % 7.9 % (8-40); MCH 31.1 pg (25.7-33.7); MCHC 33.1 g/dl (32.0-35.9); MEAN CELL VOLUME 94.1 fl (80-96); MEAN PLT VOLUME 8.1 fl (7.5-11.1); MONO % 6.2 % (3.8-10.2); NEUT % 83.4 % (42.8-82.8); PLATELET COUNT 209 10^3/uL (134-434); RDW 18.5 % (11.9-15.9); WHITE BLOOD COUNT 10.1 K/mm3 (4.0-10.0)
[2023-04-21 11:53] LABS: POTASSIUM 4.4 mmol/L (3.5-5.1)
[2023-04-21 11:55] LABS: MAGNESIUM 2.2 mg/dL (1.8-2.4)
[2023-04-21 11:56] LABS: ALBUMIN 4.1 g/dl (3.4-5.0); BLOOD UREA NITROGEN 23.2 mg/dL (7-18); CALCIUM 9.3 mg/dL (8.5-10.1)
[2023-04-21 11:58] LABS: BILIRUBIN,DIRECT 0.1 mg/dL (0.0-0.2); CREATININE 1.1 mg/dL (0.55-1.3); TOT PROT 6.7 g/dl (6.4-8.2); URIC ACID 4.8 mg/dL (2.6-7.2)
[2023-04-21] MEDS ORDERED: DARATUMUMAB-HYALURONIDASE-FIHJ (FASPRO) 15 ML VIAL SQ ONE (12:00)
[2023-04-21 12:01] LABS: BILIRUBIN,TOTAL 0.4 mg/dL (0.2-1)
[2023-04-21] MEDS ORDERED: BORTEZOMIB 2.5 MG/ML SUB-Q INJECTION SQ ONE (12:15)
[2023-04-21] MEDS ORDERED: SODIUM CHLORIDE 250 ML IV ONE (12:30)
[2023-04-21 17:25] VITALS: TEMP 97.8
[2023-04-21] MEDS ORDERED: PORTA CATH FLUSH 10 ML IVPUSH PRN (17:32)
[2023-04-21 17:33] VITALS: BP 123/68; PULSE 77; RESP 20
[2023-04-22 16:07] LABS: FREE KAPPA,SERUM 3.6 mg/L (3.3-19.4)
[2023-04-23 04:09] LABS: KAPPA LAMBDA RATIO URIN >4.49 (1.83-14.26)
[2023-04-23 16:07] LABS: IG A QN SERUM. 55 mg/dL (61-437)
[2023-04-23 19:06] LABS: BETA-2-MICROGLOBULIN 5.7 mg/L (0.6-2.4)
== END 2023-04-21 17:00 | disposition home or self-care (01) ==
LOC: JONCCHEMO 10:21 → J7W 10:26 → JONCCHEMO 17:00
PROVIDERS: ATTEND Internal Medicine Hematology & Oncology
DX: Z51.11 Encounter for antineoplastic chemotherapy (principal); E85.81 Light chain (AL) amyloidosis
CPT/HCPCS: 36415; 80048; 80076; 82232; 82784; 83615; 83735; 83883; 84155; 84165; 84550; 85025; 86335; 96367; 96401; 96413; 96415; J9041; J9070; J9144

== ENCOUNTER 2023-04-27 10:11 | Day surgery (SDC) | payer OTHER ==
[~2023-04-27 10:11] MED LIST changes: -ACETAMINOPHEN 325 MG TABLET (FP) PO ONE; -CYCLOPHOSPHAMIDE IVPB ONE; +DEXAMETHASONE SODIUM PHOSPHATE 40 MG in SODIUM CHLORIDE 50 ML IVPB ONE; -DEXAMETHASONE SODIUM PHOSPHATE 40 MG, DIPHENHYDRAMINE 50 MG in SODIUM CHLORIDE 100 ML IVPB ONE; -SODIUM CHLORIDE IVPB ONE
[2023-04-27] MEDS ORDERED: SODIUM CHLORIDE IVPB ONE (10:30)
[2023-04-27] MEDS ORDERED: BORTEZOMIB 2.5 MG/ML SUB-Q INJECTION SQ ONE (10:30)
[2023-04-27] MEDS ORDERED: CYCLOPHOSPHAMIDE IVPB ONE (10:30)
[2023-04-27 11:00] LABS: EOS % 1.6 % (0-4.5); HEMATOCRIT 41.6 % (35.4-49); HEMOGLOBIN 13.9 GM/dL (11.7-16.9); LYMPH % 8.3 % (8-40); MCH 31.3 pg (25.7-33.7); MCHC 33.3 g/dl (32.0-35.9); MEAN CELL VOLUME 93.9 fl (80-96); MEAN PLT VOLUME 8.9 fl (7.5-11.1); MONO % 7.1 % (3.8-10.2); PLATELET COUNT 175 10^3/uL (134-434); RBC 4.43 M/mm3 (4.00-5.60); RDW 17.5 % (11.9-15.9); WHITE BLOOD COUNT 8.6 K/mm3 (4.0-10.0)
[2023-04-27 11:44] LABS: ALBUMIN 4.2 g/dl (3.4-5.0); BILIRUBIN,DIRECT 0.2 mg/dL (0.0-0.2); BILIRUBIN,TOTAL 0.7 mg/dL (0.2-1); CALCIUM 9.5 mg/dL (8.5-10.1); MAGNESIUM 2.2 mg/dL (1.8-2.4); POTASSIUM 4.2 mmol/L (3.5-5.1); TOT PROT 6.8 g/dl (6.4-8.2); URIC ACID 4.3 mg/dL (2.6-7.2)
[2023-04-27] MEDS ORDERED: SODIUM CHLORIDE 250 ML IV ONE (12:30)
[2023-04-27 15:25] VITALS: RESP 18; TEMP 98.1
[2023-04-27 15:31] VITALS: BP 121/74; PULSE 89
[2023-04-27] MEDS ORDERED: PORTA CATH FLUSH 10 ML IVPUSH PRN (15:31)
== END 2023-04-27 15:30 | disposition home or self-care (01) ==
LOC: JONCCHEMO 10:11 → J7W 10:11 → JONCCHEMO 15:30
PROVIDERS: ATTEND Internal Medicine Hematology & Oncology
DX: Z51.11 Encounter for antineoplastic chemotherapy (principal); E85.81 Light chain (AL) amyloidosis
CPT/HCPCS: 36415; 80048; 80076; 83615; 83735; 84550; 85025; 96375; 96401; 96413; 96415; J9041; J9070

== ENCOUNTER 2023-05-04 10:20 | Day surgery (SDC) | payer OTHER ==
[2023-05-04] MEDS ORDERED: BORTEZOMIB 2.5 MG/ML SUB-Q INJECTION SQ ONE (10:30)
[2023-05-04] MEDS ORDERED: SODIUM CHLORIDE IVPB ONE (10:30)
[2023-05-04] MEDS ORDERED: CYCLOPHOSPHAMIDE IVPB ONE (10:30)
[2023-05-04 10:47] LABS: BASO % 0.5 % (0-2.0); HEMATOCRIT 39.1 % (35.4-49); HEMOGLOBIN 13.3 GM/dL (11.7-16.9); LYMPH % 9.9 % (8-40); MCH 31.6 pg (25.7-33.7); MEAN CELL VOLUME 93.2 fl (80-96); MEAN PLT VOLUME 8.3 fl (7.5-11.1); MONO % 8.9 % (3.8-10.2); NEUT % 77.7 % (42.8-82.8); PLATELET COUNT 179 10^3/uL (134-434); RBC 4.19 M/mm3 (4.00-5.60); RDW 18.4 % (11.9-15.9); WHITE BLOOD COUNT 6.7 K/mm3 (4.0-10.0)
[2023-05-04 11:08] LABS: POTASSIUM 4.1 mmol/L (3.5-5.1)
[2023-05-04 11:10] LABS: CALCIUM 9.1 mg/dL (8.5-10.1)
[2023-05-04 11:11] LABS: BLOOD UREA NITROGEN 18.7 mg/dL (7-18)
[2023-05-04 11:13] LABS: BILIRUBIN,DIRECT 0.1 mg/dL (0.0-0.2)
[2023-05-04 11:14] LABS: CREATININE 0.9 mg/dL (0.55-1.3); URIC ACID 4.1 mg/dL (2.6-7.2)
[2023-05-04 11:15] LABS: BILIRUBIN,TOTAL 0.6 mg/dL (0.2-1); TOT PROT 6.4 g/dl (6.4-8.2)
[2023-05-04] MEDS ORDERED: SODIUM CHLORIDE 250 ML IV ONE (12:30)
[2023-05-04] MEDS ORDERED: PORTA CATH FLUSH 10 ML IVPUSH PRN (16:40)
[2023-05-04 16:41] VITALS: BP 124/70; PULSE 92; RESP 18; TEMP 97.8
== END 2023-05-04 17:04 | disposition home or self-care (01) ==
LOC: J7W 10:20 → JONCCHEMO 10:20
PROVIDERS: ATTEND Internal Medicine Hematology & Oncology
DX: Z51.11 Encounter for antineoplastic chemotherapy (principal); E85.81 Light chain (AL) amyloidosis
CPT/HCPCS: 36415; 80048; 80076; 83615; 83735; 84550; 85025; 96375; 96401; 96413; 96415; J9041; J9070

== ENCOUNTER 2023-05-11 10:35 | Day surgery (SDC) | payer OTHER ==
[2023-05-11] MEDS: SODIUM CHLORIDE 250 ML IV ONE ×2 (11:03→14:30)
[2023-05-11 11:07] LABS: BASO % 1.1 % (0-2.0); EOS % 1.9 % (0-4.5); HEMATOCRIT 39.4 % (35.4-49); HEMOGLOBIN 13.3 GM/dL (11.7-16.9); LYMPH % 7.9 % (8-40); MCH 31.7 pg (25.7-33.7); MCHC 33.8 g/dl (32.0-35.9); MEAN CELL VOLUME 93.8 fl (80-96); MONO % 8.9 % (3.8-10.2); NEUT % 80.2 % (42.8-82.8); PLATELET COUNT 174 10^3/uL (134-434); RDW 17.7 % (11.9-15.9); WHITE BLOOD COUNT 7.8 K/mm3 (4.0-10.0)
[2023-05-11 11:21] LABS: POTASSIUM 3.9 mmol/L (3.5-5.1)
[2023-05-11 11:23] LABS: ALBUMIN 4.1 g/dl (3.4-5.0); BLOOD UREA NITROGEN 22.7 mg/dL (7-18); CALCIUM 9.1 mg/dL (8.5-10.1); MAGNESIUM 2.3 mg/dL (1.8-2.4)
[2023-05-11 11:25] LABS: BILIRUBIN,DIRECT 0.2 mg/dL (0.0-0.2)
[2023-05-11 11:27] LABS: BILIRUBIN,TOTAL 0.7 mg/dL (0.2-1); TOT PROT 6.4 g/dl (6.4-8.2)
[2023-05-11] MEDS: DEXAMETHASONE SODIUM PHOSPHATE 40 MG in SODIUM CHLORIDE 50 ML IVPB ONE (11:47)
[2023-05-11] MEDS: CYCLOPHOSPHAMIDE IVPB ONE (12:15)
[2023-05-11] MEDS: SODIUM CHLORIDE IVPB ONE (12:15)
[2023-05-11] MEDS: PORTA CATH FLUSH 10 ML IVPUSH PRN (15:40)
[2023-05-11 17:34] VITALS: RESP 18; TEMP 98
[2023-05-11 18:05] VITALS: BP 132/69; PULSE 90
== END 2023-05-11 15:40 | disposition home or self-care (01) ==
LOC: JONCCHEMO 10:35 → J7W 10:39 → JONCCHEMO 15:40
PROVIDERS: ATTEND Internal Medicine Hematology & Oncology
DX: Z51.11 Encounter for antineoplastic chemotherapy (principal); E85.81 Light chain (AL) amyloidosis
CPT/HCPCS: 36415; 80048; 80076; 83615; 83735; 84550; 85025; 96375; 96413; 96415; J9070

== ENCOUNTER 2023-05-18 09:53 | Day surgery (SDC) | payer OTHER ==
[2023-05-18] MEDS: SODIUM CHLORIDE 250 ML IV ONE ×2 (10:39→15:00)
[2023-05-18 11:00] LABS: BASO % 1.4 % (0-2.0); EOS % 2.6 % (0-4.5); HEMOGLOBIN 13.7 GM/dL (11.7-16.9); LYMPH % 6.8 % (8-40); MCH 32.1 pg (25.7-33.7); MCHC 34.3 g/dl (32.0-35.9); MEAN CELL VOLUME 93.7 fl (80-96); MEAN PLT VOLUME 8.8 fl (7.5-11.1); MONO % 7.9 % (3.8-10.2); NEUT % 81.3 % (42.8-82.8); PLATELET COUNT 206 10^3/uL (134-434); RBC 4.27 M/mm3 (4.00-5.60); RDW 18.1 % (11.9-15.9); WHITE BLOOD COUNT 7.9 K/mm3 (4.0-10.0)
[2023-05-18 11:22] LABS: POTASSIUM 4.2 mmol/L (3.5-5.1)
[2023-05-18 11:24] LABS: MAGNESIUM 2.2 mg/dL (1.8-2.4)
[2023-05-18 11:25] LABS: ALBUMIN 4.1 g/dl (3.4-5.0); BLOOD UREA NITROGEN 25.3 mg/dL (7-18); CALCIUM 9.2 mg/dL (8.5-10.1)
[2023-05-18 11:27] LABS: BILIRUBIN,DIRECT 0.1 mg/dL (0.0-0.2); CREATININE 1.1 mg/dL (0.55-1.3)
[2023-05-18 11:29] LABS: TOT PROT 6.8 g/dl (6.4-8.2)
[2023-05-18 11:30] LABS: BILIRUBIN,TOTAL 0.6 mg/dL (0.2-1); URIC ACID 4.4 mg/dL (2.6-7.2)
[2023-05-18] MEDS: ACETAMINOPHEN 325 MG TABLET (FP) PO ONE (12:05)
[2023-05-18] MEDS: DEXAMETHASONE SODIUM PHOSPHATE 40 MG, DIPHENHYDRAMINE 50 MG in SODIUM CHLORIDE 100 ML IVPB ONE (12:05)
[2023-05-18] MEDS: SODIUM CHLORIDE IVPB ONE (12:59)
[2023-05-18] MEDS: CYCLOPHOSPHAMIDE IVPB ONE (12:59)
[2023-05-18] MEDS: BORTEZOMIB 2.5 MG/ML SUB-Q INJECTION SQ ONE (13:01)
[2023-05-18] MEDS: DARATUMUMAB-HYALURONIDASE-FIHJ (FASPRO) 15 ML VIAL SQ ONE (13:02)
[2023-05-18] MEDS: PORTA CATH FLUSH 10 ML IVPUSH PRN (16:10)
[2023-05-18 17:01] VITALS: RESP 18
[2023-05-18 17:06] VITALS: BP 125/75; PULSE 91; TEMP 98.5
[2023-05-19 17:09] LABS: FREE KAPPA,SERUM 3.3 mg/L (3.3-19.4)
[2023-05-20 16:09] LABS: IG A QN SERUM. 54 mg/dL (61-437)
[2023-05-21 07:09] LABS: BETA-2-MICROGLOBULIN 2.5 mg/L (0.6-2.4); FREE KAP CHN UR 4.17 mg/L (1.17-86.46); KAPPA LAMBDA RATIO URIN >6.04 (1.83-14.26)
== END 2023-05-18 16:25 | disposition home or self-care (01) ==
LOC: JONCCHEMO 09:53 → J7W 09:56 → JONCCHEMO 16:25
PROVIDERS: ATTEND Internal Medicine Hematology & Oncology
PROC: 3E04305 Introduction of Other Antineoplastic into Central Vein, Percutaneous Approach (ICD-10-PCS; principal; 2023-05-18)
PROC: 3E043GC Introduction of Other Therapeutic Substance into Central Vein, Percutaneous Approach (ICD-10-PCS; 2023-05-18)
PROC: 3E01305 Introduction of Other Antineoplastic into Subcutaneous Tissue, Percutaneous Approach (ICD-10-PCS; 2023-05-18)
PROC: 3E01305 Introduction of Other Antineoplastic into Subcutaneous Tissue, Percutaneous Approach (ICD-10-PCS; 2023-05-18)
DX: Z51.11 Encounter for antineoplastic chemotherapy (principal); E85.81 Light chain (AL) amyloidosis
CPT/HCPCS: 36415; 80048; 80076; 82232; 82784; 83615; 83735; 83883; 84155; 84165; 84550; 85025; 86335; 96365; 96401; 96413; 96415; J9041; J9070; J9144

== ENCOUNTER 2023-05-26 10:52 | Day surgery (SDC) | payer OTHER ==
[2023-05-26 11:42] LABS: BASO % 1.3 % (0-2.0); HEMATOCRIT 38.3 % (35.4-49); LYMPH % 8.4 % (8-40); MCH 31.5 pg (25.7-33.7); MEAN CELL VOLUME 92.7 fl (80-96); MEAN PLT VOLUME 8.3 fl (7.5-11.1); MONO % 10.5 % (3.8-10.2); NEUT % 76.8 % (42.8-82.8); PLATELET COUNT 174 10^3/uL (134-434); RBC 4.13 M/mm3 (4.00-5.60); RDW 17.9 % (11.9-15.9)
[2023-05-26] MEDS: SODIUM CHLORIDE 250 ML IV ONE ×2 (11:44→15:45)
[2023-05-26 12:25] LABS: POTASSIUM 4.2 mmol/L (3.5-5.1)
[2023-05-26 12:26] LABS: MAGNESIUM 2.1 mg/dL (1.8-2.4)
[2023-05-26 12:29] LABS: BLOOD UREA NITROGEN 21.6 mg/dL (7-18); CALCIUM 9.4 mg/dL (8.5-10.1)
[2023-05-26 12:30] LABS: ALBUMIN 3.7 g/dl (3.4-5.0); CREATININE 1.1 mg/dL (0.55-1.3)
[2023-05-26 12:31] LABS: TOT PROT 6.4 g/dl (6.4-8.2)
[2023-05-26 12:33] LABS: BILIRUBIN,DIRECT 0.1 mg/dL (0.0-0.2)
[2023-05-26 12:35] LABS: BILIRUBIN,TOTAL 0.7 mg/dL (0.2-1)
[2023-05-26] MEDS: DEXAMETHASONE SODIUM PHOSPHATE 40 MG in SODIUM CHLORIDE 50 ML IVPB ONE (13:16)
[2023-05-26] MEDS: CYCLOPHOSPHAMIDE IVPB ONE (13:54)
[2023-05-26] MEDS: SODIUM CHLORIDE IVPB ONE (13:54)
[2023-05-26] MEDS: BORTEZOMIB 2.5 MG/ML SUB-Q INJECTION SQ ONE (16:17)
[2023-05-26] MEDS: PORTA CATH FLUSH 10 ML IVPUSH PRN (17:20)
[2023-05-26 18:23] VITALS: RESP 18; TEMP 97.8
[2023-05-26 18:30] VITALS: BP 113/72; PULSE 89
== END 2023-05-26 17:30 | disposition home or self-care (01) ==
LOC: JONCCHEMO 10:52 → J7W 10:53 → JONCCHEMO 17:30
PROVIDERS: ATTEND Internal Medicine Hematology & Oncology
DX: Z51.11 Encounter for antineoplastic chemotherapy (principal); E85.81 Light chain (AL) amyloidosis
CPT/HCPCS: 36415; 80048; 80076; 83615; 83735; 84550; 85025; 96361; 96375; 96413; 96415; J9041; J9070

== ENCOUNTER 2023-06-01 09:53 | Day surgery (SDC) | payer OTHER ==
[2023-06-01 10:32] LABS: BASO % 0.8 % (0-2.0); HEMATOCRIT 39.6 % (35.4-49); HEMOGLOBIN 13.2 GM/dL (11.7-16.9); LYMPH % 6.2 % (8-40); MCH 31.2 pg (25.7-33.7); MCHC 33.3 g/dl (32.0-35.9); MEAN CELL VOLUME 93.5 fl (80-96); MEAN PLT VOLUME 8.9 fl (7.5-11.1); MONO % 7.2 % (3.8-10.2); NEUT % 83.8 % (42.8-82.8); PLATELET COUNT 194 10^3/uL (134-434); RBC 4.23 M/mm3 (4.00-5.60); RDW 17.6 % (11.9-15.9)
[2023-06-01] MEDS: SODIUM CHLORIDE 250 ML IV ONE ×2 (10:46→14:15)
[2023-06-01 10:50] LABS: MAGNESIUM 1.9 mg/dL (1.8-2.4)
[2023-06-01 10:51] LABS: CALCIUM 9.1 mg/dL (8.5-10.1)
[2023-06-01 10:52] LABS: ALBUMIN 3.8 g/dl (3.4-5.0); BLOOD UREA NITROGEN 25.1 mg/dL (7-18)
[2023-06-01 10:53] LABS: CREATININE 0.9 mg/dL (0.55-1.3); URIC ACID 3.8 mg/dL (2.6-7.2)
[2023-06-01 10:54] LABS: BILIRUBIN,DIRECT 0.2 mg/dL (0.0-0.2)
[2023-06-01 10:55] LABS: TOT PROT 6.6 g/dl (6.4-8.2)
[2023-06-01 10:58] LABS: BILIRUBIN,TOTAL 0.7 mg/dL (0.2-1)
[2023-06-01 11:10] VITALS: RESP 20
[2023-06-01] MEDS: DEXAMETHASONE SODIUM PHOSPHATE 40 MG in SODIUM CHLORIDE 50 ML IVPB ONE (11:10)
[2023-06-01] MEDS: CYCLOPHOSPHAMIDE IVPB ONE (12:08)
[2023-06-01] MEDS: SODIUM CHLORIDE IVPB ONE (12:08)
[2023-06-01] MEDS: BORTEZOMIB 2.5 MG/ML SUB-Q INJECTION SQ ONE (14:18)
[2023-06-01] MEDS: PORTA CATH FLUSH 10 ML IVPUSH PRN (15:15)
[2023-06-01 17:04] VITALS: BP 124/75; PULSE 93
[2023-06-01 19:14] VITALS: TEMP 98
[2023-06-01] MEDS ORDERED: PORTA CATH FLUSH 10 ML IVPUSH PRN (19:14)
== END 2023-06-01 15:20 | disposition home or self-care (01) ==
LOC: JONCCHEMO 09:53
PROVIDERS: ATTEND Internal Medicine Hematology & Oncology
DX: Z51.11 Encounter for antineoplastic chemotherapy (principal); E85.81 Light chain (AL) amyloidosis
CPT/HCPCS: 36415; 80048; 80076; 83615; 83735; 84550; 85025; 96375; 96401; 96413; 96415; J9041; J9070

== ENCOUNTER 2023-06-08 10:08 | Day surgery (SDC) | payer OTHER ==
[2023-06-08 10:29] LABS: EOS % 2.1 % (0-4.5); HEMATOCRIT 37.7 % (35.4-49); HEMOGLOBIN 12.8 GM/dL (11.7-16.9); LYMPH % 8.5 % (8-40); MCH 31.5 pg (25.7-33.7); MEAN CELL VOLUME 92.6 fl (80-96); MEAN PLT VOLUME 8.7 fl (7.5-11.1); MONO % 8.5 % (3.8-10.2); NEUT % 79.9 % (42.8-82.8); PLATELET COUNT 183 10^3/uL (134-434); RBC 4.07 M/mm3 (4.00-5.60); RDW 18.2 % (11.9-15.9); WHITE BLOOD COUNT 7.9 K/mm3 (4.0-10.0)
[2023-06-08 10:41] LABS: POTASSIUM 4.2 mmol/L (3.5-5.1)
[2023-06-08 10:44] LABS: CALCIUM 8.7 mg/dL (8.5-10.1)
[2023-06-08 10:45] LABS: ALBUMIN 3.7 g/dl (3.4-5.0); BLOOD UREA NITROGEN 26.4 mg/dL (7-18)
[2023-06-08 10:47] LABS: URIC ACID 3.8 mg/dL (2.6-7.2)
[2023-06-08 10:49] LABS: TOT PROT 6.4 g/dl (6.4-8.2)
[2023-06-08 10:50] LABS: BILIRUBIN,DIRECT 0.1 mg/dL (0.0-0.2); BILIRUBIN,TOTAL 0.5 mg/dL (0.2-1)
[2023-06-08] MEDS: SODIUM CHLORIDE 250 ML IV ONE ×2 (11:10→14:55)
[2023-06-08] MEDS: DEXAMETHASONE SODIUM PHOSPHATE 40 MG in SODIUM CHLORIDE 50 ML IVPB ONE (12:21)
[2023-06-08] MEDS: SODIUM CHLORIDE IVPB ONE (12:46)
[2023-06-08] MEDS: CYCLOPHOSPHAMIDE IVPB ONE (12:46)
[2023-06-08] MEDS: PORTA CATH FLUSH 10 ML IVPUSH PRN (15:55)
[2023-06-08 18:31] VITALS: RESP 18; TEMP 98
[2023-06-08 18:42] VITALS: BP 115/67; PULSE 85
== END 2023-06-08 15:55 | disposition home or self-care (01) ==
LOC: JONCCHEMO 10:08 → J7W 10:09 → JONCCHEMO 15:55
PROVIDERS: ATTEND Internal Medicine Hematology & Oncology
DX: Z51.11 Encounter for antineoplastic chemotherapy (principal); C61 Malignant neoplasm of prostate
CPT/HCPCS: 36415; 80048; 80076; 83615; 83735; 84550; 85025; 96375; 96413; 96415; J9070

== ENCOUNTER 2023-06-15 10:52 | Day surgery (SDC) | payer OTHER ==
[2023-06-15 11:23] LABS: BASO % 1.2 % (0-2.0); EOS % 2.7 % (0-4.5); HEMATOCRIT 39.5 % (35.4-49); HEMOGLOBIN 13.4 GM/dL (11.7-16.9); LYMPH % 7.1 % (8-40); MCH 31.5 pg (25.7-33.7); MEAN CELL VOLUME 92.8 fl (80-96); MEAN PLT VOLUME 7.9 fl (7.5-11.1); MONO % 7.9 % (3.8-10.2); NEUT % 81.1 % (42.8-82.8); PLATELET COUNT 221 10^3/uL (134-434); RBC 4.26 M/mm3 (4.00-5.60); RDW 18.5 % (11.9-15.9); WHITE BLOOD COUNT 7.7 K/mm3 (4.0-10.0)
[2023-06-15] MEDS: SODIUM CHLORIDE 250 ML IV ONE ×2 (11:39→15:30)
[2023-06-15 11:57] LABS: POTASSIUM 3.8 mmol/L (3.5-5.1)
[2023-06-15 12:00] LABS: CALCIUM 8.9 mg/dL (8.5-10.1)
[2023-06-15 12:01] LABS: ALBUMIN 3.8 g/dl (3.4-5.0); BLOOD UREA NITROGEN 22.7 mg/dL (7-18); MAGNESIUM 2.2 mg/dL (1.8-2.4)
[2023-06-15 12:03] LABS: BILIRUBIN,DIRECT 0.1 mg/dL (0.0-0.2); URIC ACID 3.5 mg/dL (2.6-7.2)
[2023-06-15 12:04] LABS: CREATININE 0.9 mg/dL (0.55-1.3)
[2023-06-15 12:05] LABS: BILIRUBIN,TOTAL 0.6 mg/dL (0.2-1); TOT PROT 6.5 g/dl (6.4-8.2)
[2023-06-15] MEDS: DEXAMETHASONE SODIUM PHOSPHATE 40 MG, DIPHENHYDRAMINE 50 MG in SODIUM CHLORIDE 100 ML IVPB ONE (12:40)
[2023-06-15] MEDS: ACETAMINOPHEN 325 MG TABLET (FP) PO ONE (12:40)
[2023-06-15] MEDS: SODIUM CHLORIDE IVPB ONE (13:30)
[2023-06-15] MEDS: CYCLOPHOSPHAMIDE IVPB ONE (13:30)
[2023-06-15] MEDS: DARATUMUMAB-HYALURONIDASE-FIHJ (FASPRO) 15 ML VIAL SQ ONE (13:43)
[2023-06-15] MEDS: BORTEZOMIB 2.5 MG/ML SUB-Q INJECTION SQ ONE (13:50)
[2023-06-15] MEDS: PORTA CATH FLUSH 10 ML IVPUSH PRN (16:35)
[2023-06-15 19:01] VITALS: BP 118/68; PULSE 72; RESP 20; TEMP 97.6
[2023-06-17 17:10] LABS: FREE KAPPA,SERUM 3.3 mg/L (3.3-19.4)
[2023-06-18 07:08] LABS: FREE KAP CHN UR 3.19 mg/L (1.17-86.46); KAPPA LAMBDA RATIO URIN 3.29 (1.83-14.26)
[2023-06-18 08:11] LABS: BETA-2-MICROGLOBULIN 2.6 mg/L (0.6-2.4)
[2023-06-18 18:11] LABS: IG A QN SERUM. 49 mg/dL (61-437)
== END 2023-06-15 16:45 | disposition home or self-care (01) ==
LOC: JONCCHEMO 10:52 → J7W 10:53 → JONCCHEMO 16:45
PROVIDERS: ATTEND Internal Medicine Hematology & Oncology
DX: Z51.11 Encounter for antineoplastic chemotherapy (principal); C61 Malignant neoplasm of prostate
CPT/HCPCS: 36415; 80048; 80076; 82232; 82784; 83615; 83735; 83883; 84155; 84165; 84550; 85025; 86335; 96367; 96401; 96413; 96415; J9041; J9070; J9144

== ENCOUNTER 2023-06-22 10:41 | Day surgery (SDC) | payer OTHER ==
[2023-06-22] MEDS: SODIUM CHLORIDE 250 ML IV ONE ×2 (11:00→15:55)
[2023-06-22 11:29] LABS: EOS % 1.8 % (0-4.5); HEMOGLOBIN 13.3 GM/dL (11.7-16.9); LYMPH % 7.4 % (8-40); MCH 30.8 pg (25.7-33.7); MCHC 33.2 g/dl (32.0-35.9); MEAN PLT VOLUME 8.9 fl (7.5-11.1); MONO % 7.8 % (3.8-10.2); PLATELET COUNT 190 10^3/uL (134-434); RDW 17.6 % (11.9-15.9); WHITE BLOOD COUNT 8.5 K/mm3 (4.0-10.0)
[2023-06-22 11:53] LABS: POTASSIUM 4.3 mmol/L (3.5-5.1)
[2023-06-22 11:58] LABS: ALBUMIN 3.9 g/dl (3.4-5.0); BLOOD UREA NITROGEN 25.6 mg/dL (7-18); CALCIUM 9.2 mg/dL (8.5-10.1); MAGNESIUM 2.2 mg/dL (1.8-2.4)
[2023-06-22 12:01] LABS: BILIRUBIN,DIRECT 0.1 mg/dL (0.0-0.2)
[2023-06-22 12:03] LABS: BILIRUBIN,TOTAL 0.7 mg/dL (0.2-1); TOT PROT 6.5 g/dl (6.4-8.2)
[2023-06-22] MEDS: DEXAMETHASONE SODIUM PHOSPHATE 40 MG in SODIUM CHLORIDE 50 ML IVPB ONE (13:11)
[2023-06-22] MEDS: SODIUM CHLORIDE IVPB ONE (13:37)
[2023-06-22] MEDS: CYCLOPHOSPHAMIDE IVPB ONE (13:37)
[2023-06-22] MEDS: BORTEZOMIB 2.5 MG/ML SUB-Q INJECTION SQ ONE (13:40)
[2023-06-22 16:33] VITALS: TEMP 97.7
[2023-06-22 16:58] VITALS: BP 115/67; PULSE 86; RESP 20
[2023-06-22] MEDS: PORTA CATH FLUSH 10 ML IVPUSH PRN (17:01)
== END 2023-06-22 17:22 | disposition home or self-care (01) ==
LOC: JONCCHEMO 10:41 → J7W 10:42 → JONCCHEMO 17:22
PROVIDERS: ATTEND Internal Medicine Hematology & Oncology
DX: Z51.11 Encounter for antineoplastic chemotherapy (principal); C61 Malignant neoplasm of prostate
CPT/HCPCS: 36415; 80048; 80076; 83615; 83735; 84550; 85025; 96367; 96401; 96413; 96415; J9041; J9070

== ENCOUNTER 2023-06-29 11:29 | Day surgery (SDC) | payer OTHER ==
[2023-06-29 11:46] LABS: BASO % 0.6 % (0-2.0); EOS % 1.4 % (0-4.5); HEMATOCRIT 38.6 % (35.4-49); HEMOGLOBIN 13.2 GM/dL (11.7-16.9); MCH 31.3 pg (25.7-33.7); MCHC 34.2 g/dl (32.0-35.9); MEAN CELL VOLUME 91.4 fl (80-96); MEAN PLT VOLUME 8.9 fl (7.5-11.1); MONO % 8.2 % (3.8-10.2); NEUT % 83.8 % (42.8-82.8); PLATELET COUNT 182 10^3/uL (134-434); RBC 4.22 M/mm3 (4.00-5.60); RDW 17.8 % (11.9-15.9); WHITE BLOOD COUNT 9.9 K/mm3 (4.0-10.0)
[2023-06-29 12:08] LABS: POTASSIUM 3.9 mmol/L (3.5-5.1)
[2023-06-29 12:10] LABS: BLOOD UREA NITROGEN 23.7 mg/dL (7-18)
[2023-06-29 12:11] LABS: ALBUMIN 3.8 g/dl (3.4-5.0); MAGNESIUM 2.1 mg/dL (1.8-2.4)
[2023-06-29 12:13] LABS: URIC ACID 3.8 mg/dL (2.6-7.2)
[2023-06-29 12:14] LABS: BILIRUBIN,DIRECT 0.1 mg/dL (0.0-0.2)
[2023-06-29 12:15] LABS: BILIRUBIN,TOTAL 0.6 mg/dL (0.2-1); TOT PROT 6.4 g/dl (6.4-8.2)
[2023-06-29] MEDS: SODIUM CHLORIDE 250 ML IV ONE ×2 (12:21→15:25)
[2023-06-29] MEDS: DEXAMETHASONE SODIUM PHOSPHATE 40 MG in SODIUM CHLORIDE 50 ML IVPB ONE (12:52)
[2023-06-29] MEDS: CYCLOPHOSPHAMIDE IVPB ONE (13:21)
[2023-06-29] MEDS: SODIUM CHLORIDE IVPB ONE (13:21)
[2023-06-29] MEDS: BORTEZOMIB 2.5 MG/ML SUB-Q INJECTION SQ ONE (13:24)
[2023-06-29] MEDS: PORTA CATH FLUSH 10 ML IVPUSH PRN (16:25)
[2023-06-29 17:35] VITALS: BP 137/76; PULSE 86; RESP 16; TEMP 97.8
== END 2023-06-29 16:40 | disposition home or self-care (01) ==
LOC: JONCCHEMO 11:29 → J7W 11:30 → JONCCHEMO 16:40
PROVIDERS: ATTEND Internal Medicine Hematology & Oncology
DX: Z51.11 Encounter for antineoplastic chemotherapy (principal); C61 Malignant neoplasm of prostate
CPT/HCPCS: 36415; 80048; 80076; 83615; 83735; 84550; 85025; 96367; 96401; 96413; 96415; J9041; J9070

== ENCOUNTER 2023-07-06 10:06 | Day surgery (SDC) | payer OTHER ==
[2023-07-06 10:28] LABS: BASO % 0.5 % (0-2.0); EOS % 1.6 % (0-4.5); HEMOGLOBIN 12.7 GM/dL (11.7-16.9); LYMPH % 4.8 % (8-40); MCH 30.1 pg (25.7-33.7); MCHC 32.5 g/dl (32.0-35.9); MEAN CELL VOLUME 92.8 fl (80-96); MEAN PLT VOLUME 8.8 fl (7.5-11.1); MONO % 6.8 % (3.8-10.2); NEUT % 86.3 % (42.8-82.8); PLATELET COUNT 175 10^3/uL (134-434); RDW 18.1 % (11.9-15.9); WHITE BLOOD COUNT 11.7 K/mm3 (4.0-10.0)
[2023-07-06 10:45] LABS: POTASSIUM 4.2 mmol/L (3.5-5.1)
[2023-07-06 10:47] LABS: MAGNESIUM 2.1 mg/dL (1.8-2.4)
[2023-07-06 10:49] LABS: ALBUMIN 3.8 g/dl (3.4-5.0); CALCIUM 9.2 mg/dL (8.5-10.1)
[2023-07-06 10:51] LABS: URIC ACID 3.9 mg/dL (2.6-7.2)
[2023-07-06 10:52] LABS: BILIRUBIN,DIRECT 0.1 mg/dL (0.0-0.2); CREATININE 1.1 mg/dL (0.55-1.3)
[2023-07-06 10:53] LABS: TOT PROT 6.4 g/dl (6.4-8.2)
[2023-07-06 10:55] LABS: BILIRUBIN,TOTAL 0.5 mg/dL (0.2-1)
[2023-07-06] MEDS: SODIUM CHLORIDE 250 ML IV ONE ×2 (11:14→15:00)
[2023-07-06] MEDS: DEXAMETHASONE SODIUM PHOSPHATE 40 MG in SODIUM CHLORIDE 50 ML IVPB ONE (12:15)
[2023-07-06] MEDS: CYCLOPHOSPHAMIDE IVPB ONE (13:00)
[2023-07-06] MEDS: SODIUM CHLORIDE IVPB ONE (13:00)
[2023-07-06 15:34] VITALS: RESP 18; TEMP 98
[2023-07-06] MEDS: PORTA CATH FLUSH 10 ML IVPUSH PRN (16:05)
[2023-07-06] MEDS ORDERED: PORTA CATH FLUSH 10 ML IVPUSH PRN (17:26)
[2023-07-06 17:27] VITALS: BP 122/73; PULSE 83
== END 2023-07-06 16:20 | disposition home or self-care (01) ==
LOC: J7W 10:06 → JONCCHEMO 10:06
PROVIDERS: ATTEND Internal Medicine Hematology & Oncology
DX: Z51.11 Encounter for antineoplastic chemotherapy (principal); C61 Malignant neoplasm of prostate
CPT/HCPCS: 36415; 80048; 80076; 83615; 83735; 84550; 85025; 96367; 96413; 96415; J9074

== ENCOUNTER 2023-08-03 10:33 | Day surgery (SDC) | payer OTHER ==
[2023-08-03 11:04] LABS: BASO % 1.2 % (0-2.0); EOS % 1.7 % (0-4.5); HEMATOCRIT 41.3 % (35.4-49); HEMOGLOBIN 13.8 GM/dL (11.7-16.9); LYMPH % 8.4 % (8-40); MCH 30.9 pg (25.7-33.7); MCHC 33.4 g/dl (32.0-35.9); MEAN CELL VOLUME 92.4 fl (80-96); MEAN PLT VOLUME 8.4 fl (7.5-11.1); MONO % 8.2 % (3.8-10.2); NEUT % 80.5 % (42.8-82.8); PLATELET COUNT 173 10^3/uL (134-434); RBC 4.46 M/mm3 (4.00-5.60); RDW 17.7 % (11.9-15.9); WHITE BLOOD COUNT 6.8 K/mm3 (4.0-10.0)
[2023-08-03] MEDS: SODIUM CHLORIDE 250 ML IV ONE (11:15)
[2023-08-03 11:24] LABS: POTASSIUM 4.2 mmol/L (3.5-5.1)
[2023-08-03 11:26] LABS: MAGNESIUM 2.4 mg/dL (1.8-2.4)
[2023-08-03 11:27] LABS: BLOOD UREA NITROGEN 24.7 mg/dL (7-18); CALCIUM 9.8 mg/dL (8.5-10.1)
[2023-08-03 11:29] LABS: CREATININE 1.1 mg/dL (0.55-1.3); URIC ACID 4.3 mg/dL (2.6-7.2)
[2023-08-03 11:30] LABS: BILIRUBIN,DIRECT 0.2 mg/dL (0.0-0.2)
[2023-08-03 11:31] LABS: TOT PROT 6.6 g/dl (6.4-8.2)
[2023-08-03 11:32] LABS: BILIRUBIN,TOTAL 0.9 mg/dL (0.2-1)
[2023-08-03] MEDS: INSULIN (NOVOLOG) ASPART 100 UNITS/ML 10ML VIAL SQ ONE (12:03)
[2023-08-03] MEDS: DEXAMETHASONE SODIUM PHOSPHATE 40 MG, DIPHENHYDRAMINE 50 MG in SODIUM CHLORIDE 100 ML IVPB ONE (12:05)
[2023-08-03] MEDS: ACETAMINOPHEN 325 MG TABLET (FP) PO ONE (12:05)
[2023-08-03] MEDS: DARATUMUMAB-HYALURONIDASE-FIHJ (FASPRO) 15 ML VIAL SQ ONE (13:00)
[2023-08-03] MEDS: PORTA CATH FLUSH 10 ML IVPUSH PRN (13:10)
[2023-08-03 14:12] VITALS: RESP 18; TEMP 98.2
[2023-08-03 14:33] VITALS: BP 117/69; PULSE 84
[2023-08-05 06:09] LABS: FREE KAP CHN UR 2.99 mg/L (1.17-86.46); KAPPA LAMBDA RATIO URIN 0.33 (1.83-14.26)
[2023-08-06 08:10] LABS: BETA-2-MICROGLOBULIN 3.3 mg/L (0.6-2.4)
== END 2023-08-03 13:35 | disposition home or self-care (01) ==
LOC: JONCCHEMO 10:33 → J7W 10:36 → JONCCHEMO 13:35
PROVIDERS: ATTEND Internal Medicine Hematology & Oncology
PROC: 3E043GC Introduction of Other Therapeutic Substance into Central Vein, Percutaneous Approach (ICD-10-PCS; principal; 2023-08-03)
PROC: 3E01305 Introduction of Other Antineoplastic into Subcutaneous Tissue, Percutaneous Approach (ICD-10-PCS; 2023-08-03)
DX: Z51.11 Encounter for antineoplastic chemotherapy (principal); C61 Malignant neoplasm of prostate
CPT/HCPCS: 36415; 80048; 80076; 82232; 82784; 83615; 83735; 83883; 84155; 84165; 84550; 85025; 86335; 96365; 96401; J9144

== ENCOUNTER 2023-09-09 03:50 | Day surgery (SDC) | payer OTHER ==
[2023-09-03 09:20] VITALS: BMI 27.4
[2023-09-09] MEDS ORDERED: HYDROmorphone HCl 2 MG/ML VIAL ONE (11:49)
[2023-09-09] MEDS ORDERED: FENTANYL CITRATE/PF 50 MCG/ML VIAL ONE ×3 (11:50→13:30)
[2023-09-09] MEDS ORDERED: MIDAZOLAM HCL 2 MG/2 ML SINGLE DOSE VIAL ONE (11:50)
[2023-09-09] MEDS ORDERED: ROCURONIUM BROMIDE 50 MG/5 ML SYRINGE ONE (11:51)
[2023-09-09] MEDS ORDERED: PROPOFOL 40 ML ONE (11:52)
[2023-09-09] MEDS: ceFAZolin SODIUM 1 GM VIAL IVPB ONE ×2 (12:38)
[2023-09-09] MEDS: BUPIVACAINE HCL/PF 0.25% (2.5MG/ML) 10 ML VIAL IJ ONE ×2 (12:45)
[2023-09-09] MEDS ORDERED: NEOSTIGMINE METHYLSULFATE 0.5 MG/1 ML - 10 ML MDV ONE (13:45)
[2023-09-09] MEDS ORDERED: oxyCODONE HCL 5 MG TABLET PO PRN (14:16)
[2023-09-09] MEDS ORDERED: PROMETHAZINE HCL 25 MG/1 ML VIAL IVPB PRN (14:16)
[2023-09-09] MEDS ORDERED: LACTATED RINGERS SOLUTION 1,000 ML IV SCH (14:30)
[2023-09-09 17:49] VITALS: RESP 18
[2023-09-09 18:51] VITALS: BP 128/66; PULSE 80; TEMP 98.2
== END 2023-09-09 19:47 | disposition home or self-care (01) ==
LOC: JASU-SURG 03:50
PROVIDERS: ATTEND Surgery
PROC: 8E0W0CZ Robotic Assisted Procedure of Trunk Region, Open Approach (ICD-10-PCS; 2023-09-09)
PROC: 0YU60JZ Supplement Left Inguinal Region with Synthetic Substitute, Open Approach (ICD-10-PCS; principal; 2023-09-09 10:30)
DX: K40.90 Unilateral inguinal hernia, without obstruction or gangrene, not specified as recurrent (principal)
CPT/HCPCS: 49505; S2900; 36415; 82010; 82962; 86850; 86870; 86880; 86900; 86901; 86902; 88304-TC; 94010; 94760; C1781; J1644

== ENCOUNTER 2023-09-28 10:08 | Day surgery (SDC) | payer OTHER ==
[~2023-09-28 10:08] MED LIST changes: +ACETAMINOPHEN 325 MG TABLET (FP) PO ONE; +DARATUMUMAB-HYALURONIDASE-FIHJ (FASPRO) 15 ML VIAL SQ ONE; -DEXAMETHASONE SODIUM PHOSPHATE 40 MG in SODIUM CHLORIDE 50 ML IVPB ONE; +DEXAMETHASONE SODIUM PHOSPHATE 40 MG, DIPHENHYDRAMINE 50 MG in SODIUM CHLORIDE 100 ML IVPB ONE
[2023-09-28] MEDS: SODIUM CHLORIDE 250 ML IV ONE (11:07)
[2023-09-28 11:15] LABS: EOS % 3.1 % (0-4.5); HEMATOCRIT 39.3 % (35.4-49); LYMPH % 8.9 % (8-40); MCH 30.3 pg (25.7-33.7); MEAN CELL VOLUME 91.7 fl (80-96); MEAN PLT VOLUME 7.9 fl (7.5-11.1); MONO % 5.7 % (3.8-10.2); NEUT % 80.3 % (42.8-82.8); PLATELET COUNT 237 10^3/uL (134-434); RBC 4.28 M/mm3 (4.00-5.60); RDW 15.8 % (11.9-15.9); WHITE BLOOD COUNT 7.7 K/mm3 (4.0-10.0)
[2023-09-28 11:30] LABS: CHLORIDE 108 mmol/L (98-107); POTASSIUM 4.1 mmol/L (3.5-5.1); SODIUM 142 mmol/L (136-145)
[2023-09-28 11:32] LABS: ANION GAP 6 mmol/L (4-13); CALCIUM 9.5 mg/dL (8.5-10.1); CO2 28 mmol/L (21-32); MAGNESIUM 2.2 mg/dL (1.8-2.4)
[2023-09-28 11:33] LABS: ALBUMIN 4.1 g/dl (3.4-5.0); GLUCOSE,RANDOM 183 mg/dL (74-106)
[2023-09-28 11:35] LABS: BILIRUBIN,DIRECT 0.2 mg/dL (0.0-0.2); CREATININE 1.1 mg/dL (0.55-1.3); SGOT/AST 39 U/L (15-37); SGPT/ALT 57 U/L (13-61)
[2023-09-28 11:37] LABS: LDH 162 U/L (87-246); TOT PROT 6.6 g/dl (6.4-8.2)
[2023-09-28 11:38] LABS: BILIRUBIN,TOTAL 0.7 mg/dL (0.2-1)
[2023-09-28 11:39] LABS: ALK PHOS 486 U/L (45-117)
[2023-09-28] MEDS: ACETAMINOPHEN 325 MG TABLET (FP) PO ONE (12:22)
[2023-09-28] MEDS: DEXAMETHASONE SODIUM PHOSPHATE 40 MG, DIPHENHYDRAMINE 50 MG in SODIUM CHLORIDE 100 ML IVPB ONE (12:22)
[2023-09-28] MEDS: DARATUMUMAB-HYALURONIDASE-FIHJ (FASPRO) 15 ML VIAL SQ ONE (13:04)
[2023-09-28] MEDS: PORTA CATH FLUSH 10 ML IVPUSH PRN (13:10)
[2023-09-28 15:56] VITALS: RESP 20; TEMP 98.2
[2023-09-28 16:01] VITALS: BP 122/68; PULSE 82
[2023-09-29 17:08] LABS: FREE KAPPA,SERUM 4.1 mg/L (3.3-19.4)
[2023-09-29 19:09] LABS: IG A QN SERUM. 51 mg/dL (61-437)
[2023-09-30 07:10] LABS: FREE KAP CHN UR 3.93 mg/L (1.17-86.46); KAPPA LAMBDA RATIO URIN 1.95 (1.83-14.26)
== END 2023-09-28 13:30 | disposition home or self-care (01) ==
LOC: J7W 10:08 → JONCCHEMO 10:08
PROVIDERS: ATTEND Internal Medicine Hematology & Oncology
PROC: 3E043GC Introduction of Other Therapeutic Substance into Central Vein, Percutaneous Approach (ICD-10-PCS; principal; 2023-09-28)
PROC: 3E01305 Introduction of Other Antineoplastic into Subcutaneous Tissue, Percutaneous Approach (ICD-10-PCS; 2023-09-28)
DX: Z51.11 Encounter for antineoplastic chemotherapy (principal); C61 Malignant neoplasm of prostate
CPT/HCPCS: 36415; 80048; 80076; 82232; 82784; 83615; 83735; 83883; 84155; 84165; 84550; 85025; 86334; 86335; 96365; 96401; J9144

== ENCOUNTER 2023-10-26 10:54 | Day surgery (SDC) | payer OTHER ==
[~2023-10-26 10:54] MED LIST changes: -DARATUMUMAB-HYALURONIDASE-FIHJ (FASPRO) 15 ML VIAL SQ ONE; -DEXAMETHASONE SODIUM PHOSPHATE 40 MG, DIPHENHYDRAMINE 50 MG in SODIUM CHLORIDE 100 ML IVPB ONE; -SODIUM CHLORIDE 250 ML IV ONE
[2023-10-26] MEDS: SODIUM CHLORIDE 250 ML IV ONE (11:54)
[2023-10-26 12:09] LABS: BASO % 1.2 % (0-2.0); EOS % 2.4 % (0-4.5); HEMATOCRIT 42.3 % (35.4-49); HEMOGLOBIN 14.3 GM/dL (11.7-16.9); LYMPH % 11.4 % (8-40); MCH 30.1 pg (25.7-33.7); MCHC 33.9 g/dl (32.0-35.9); MEAN CELL VOLUME 88.8 fl (80-96); MEAN PLT VOLUME 8.6 fl (7.5-11.1); MONO % 9.5 % (3.8-10.2); NEUT % 75.5 % (42.8-82.8); PLATELET COUNT 162 10^3/uL (134-434); RBC 4.76 M/mm3 (4.00-5.60); RDW 15.3 % (11.9-15.9); WHITE BLOOD COUNT 7.1 K/mm3 (4.0-10.0)
[2023-10-26 12:28] LABS: CHLORIDE 107 mmol/L (98-107); POTASSIUM 4.1 mmol/L (3.5-5.1); SODIUM 140 mmol/L (136-145)
[2023-10-26 12:34] LABS: ANION GAP 6 mmol/L (4-13); BLOOD UREA NITROGEN 24.4 mg/dL (7-18); CO2 27 mmol/L (21-32); GLUCOSE,RANDOM 131 mg/dL (74-106); MAGNESIUM 2.3 mg/dL (1.8-2.4)
[2023-10-26 12:35] LABS: ALBUMIN 4.3 g/dl (3.4-5.0); CALCIUM 9.5 mg/dL (8.5-10.1)
[2023-10-26 12:37] LABS: BILIRUBIN,DIRECT 0.2 mg/dL (0.0-0.2); CREATININE 1.2 mg/dL (0.55-1.3); SGOT/AST 35 U/L (15-37); SGPT/ALT 49 U/L (13-61); URIC ACID 4.5 mg/dL (2.6-7.2)
[2023-10-26 12:39] LABS: BILIRUBIN,TOTAL 0.8 mg/dL (0.2-1); TOT PROT 6.8 g/dl (6.4-8.2)
[2023-10-26 12:40] LABS: ALK PHOS 316 U/L (45-117)
[2023-10-26 13:28] LABS: LDH 177 U/L (87-246)
[2023-10-26] MEDS: ACETAMINOPHEN 325 MG TABLET (FP) PO ONE (13:30)
[2023-10-26] MEDS: DEXAMETHASONE SODIUM PHOSPHATE 40 MG, DIPHENHYDRAMINE 50 MG in SODIUM CHLORIDE 100 ML IVPB ONE (13:30)
[2023-10-26] MEDS: DARATUMUMAB-HYALURONIDASE-FIHJ (FASPRO) 15 ML VIAL SQ ONE (14:06)
[2023-10-26] MEDS: PORTA CATH FLUSH 10 ML IVPUSH PRN (14:10)
[2023-10-26 16:45] VITALS: RESP 20; TEMP 98
[2023-10-26 17:06] VITALS: BP 147/83; PULSE 84
[2023-10-27 18:08] LABS: FREE KAPPA,SERUM 3.3 mg/L (3.3-19.4); IG A QN SERUM. 51 mg/dL (61-437)
[2023-10-28 08:14] LABS: KAPPA LAMBDA RATIO URIN 3.45 (1.83-14.26)
[2023-10-28 16:10] LABS: BETA-2-MICROGLOBULIN 2.2 mg/L (0.6-2.4)
== END 2023-10-26 14:30 | disposition home or self-care (01) ==
LOC: JONCCHEMO 10:54 → J7W 10:55 → JONCCHEMO 14:30
PROVIDERS: ATTEND Internal Medicine Hematology & Oncology
PROC: 3E01305 Introduction of Other Antineoplastic into Subcutaneous Tissue, Percutaneous Approach (ICD-10-PCS; principal; 2023-10-26)
PROC: 3E043GC Introduction of Other Therapeutic Substance into Central Vein, Percutaneous Approach (ICD-10-PCS; 2023-10-26)
DX: Z51.11 Encounter for antineoplastic chemotherapy (principal); E85.81 Light chain (AL) amyloidosis
CPT/HCPCS: 36415; 80048; 80076; 82232; 82784; 83615; 83735; 83883; 84155; 84165; 84550; 85025; 86335; 96365; 96401; J9144

== ENCOUNTER 2023-11-23 11:05 | Day surgery (SDC) | payer OTHER ==
[2023-11-23 11:34] LABS: EOS % 1.3 % (0-4.5); HEMATOCRIT 43.7 % (35.4-49); HEMOGLOBIN 14.5 GM/dL (11.7-16.9); LYMPH % 8.9 % (8-40); MCH 29.2 pg (25.7-33.7); MCHC 33.2 g/dl (32.0-35.9); MEAN CELL VOLUME 88.2 fl (80-96); MEAN PLT VOLUME 8.1 fl (7.5-11.1); MONO % 8.5 % (3.8-10.2); NEUT % 80.3 % (42.8-82.8); PLATELET COUNT 163 10^3/uL (134-434); RBC 4.96 M/mm3 (4.00-5.60); RDW 16.8 % (11.9-15.9); WHITE BLOOD COUNT 7.3 K/mm3 (4.0-10.0)
[2023-11-23] MEDS: SODIUM CHLORIDE 250 ML IV ONE (11:49)
[2023-11-23 11:57] LABS: CHLORIDE 106 mmol/L (98-107); POTASSIUM 4.5 mmol/L (3.5-5.1); SODIUM 141 mmol/L (136-145)
[2023-11-23 12:00] LABS: CALCIUM 9.4 mg/dL (8.5-10.1)
[2023-11-23 12:01] LABS: ALBUMIN 4.1 g/dl (3.4-5.0); ANION GAP 8 mmol/L (4-13); BLOOD UREA NITROGEN 26.9 mg/dL (7-18); CO2 28 mmol/L (21-32); GLUCOSE,RANDOM 147 mg/dL (74-106); MAGNESIUM 2.5 mg/dL (1.8-2.4)
[2023-11-23 12:03] LABS: BILIRUBIN,DIRECT 0.2 mg/dL (0.0-0.2); URIC ACID 4.4 mg/dL (2.6-7.2)
[2023-11-23 12:04] LABS: CREATININE 1.3 mg/dL (0.55-1.3); SGOT/AST 47 U/L (15-37); SGPT/ALT 57 U/L (13-61)
[2023-11-23 12:05] LABS: BILIRUBIN,TOTAL 0.9 mg/dL (0.2-1); TOT PROT 6.6 g/dl (6.4-8.2)
[2023-11-23 12:07] LABS: ALK PHOS 303 U/L (45-117)
[2023-11-23 12:09] LABS: LDH 164 U/L (87-246)
[2023-11-23] MEDS: DEXAMETHASONE SODIUM PHOSPHATE 40 MG, DIPHENHYDRAMINE 50 MG in SODIUM CHLORIDE 100 ML IVPB ONE (12:33)
[2023-11-23] MEDS: ACETAMINOPHEN 325 MG TABLET (FP) PO ONE (12:34)
[2023-11-23] MEDS: DARATUMUMAB-HYALURONIDASE-FIHJ (FASPRO) 15 ML VIAL SQ ONE (13:09)
[2023-11-23] MEDS: PORTA CATH FLUSH 10 ML IVPUSH PRN ×2 (13:15→13:30)
[2023-11-23 18:40] VITALS: BP 124/79; PULSE 100; RESP 18; TEMP 98
[2023-11-25 07:09] LABS: FREE KAP CHN UR 3.42 mg/L (1.17-86.46); KAPPA LAMBDA RATIO URIN 2.24 (1.83-14.26)
[2023-11-25 20:07] LABS: IG A QN SERUM. 44 mg/dL (61-437)
[2023-11-26 07:07] LABS: BETA-2-MICROGLOBULIN 2.8 mg/L (0.6-2.4)
== END 2023-11-23 13:45 | disposition home or self-care (01) ==
LOC: JONCCHEMO 11:05 → J7W 11:06 → JONCCHEMO 13:45
PROVIDERS: ATTEND Internal Medicine Hematology & Oncology
PROC: 3E01305 Introduction of Other Antineoplastic into Subcutaneous Tissue, Percutaneous Approach (ICD-10-PCS; principal; 2023-11-23)
PROC: 3E043GC Introduction of Other Therapeutic Substance into Central Vein, Percutaneous Approach (ICD-10-PCS; 2023-11-23)
DX: Z51.11 Encounter for antineoplastic chemotherapy (principal); E85.81 Light chain (AL) amyloidosis
CPT/HCPCS: 36415; 80048; 80076; 82232; 82784; 83615; 83735; 83883; 84155; 84165; 84550; 85025; 86335; 96365; 96401; J9144

== ENCOUNTER 2023-12-21 10:46 | Day surgery (SDC) | payer OTHER ==
[2023-12-21] MEDS: SODIUM CHLORIDE 250 ML IV ONE (11:15)
[2023-12-21 11:59] LABS: BASO % 1.4 % (0-2.0); EOS % 2.6 % (0-4.5); HEMOGLOBIN 14.4 GM/dL (11.7-16.9); LYMPH % 10.7 % (8-40); MCH 29.2 pg (25.7-33.7); MCHC 32.8 g/dl (32.0-35.9); MEAN PLT VOLUME 8.2 fl (7.5-11.1); MONO % 8.5 % (3.8-10.2); NEUT % 76.8 % (42.8-82.8); PLATELET COUNT 160 10^3/uL (134-434); RBC 4.94 M/mm3 (4.00-5.60); RDW 16.5 % (11.9-15.9); WHITE BLOOD COUNT 6.7 K/mm3 (4.0-10.0)
[2023-12-21 12:15] LABS: POTASSIUM 4.2 mmol/L (3.5-5.1)
[2023-12-21 12:19] LABS: ALBUMIN 4.2 g/dl (3.4-5.0); BLOOD UREA NITROGEN 24.3 mg/dL (7-18); CALCIUM 9.7 mg/dL (8.5-10.1); MAGNESIUM 2.2 mg/dL (1.8-2.4)
[2023-12-21 12:21] LABS: URIC ACID 4.1 mg/dL (2.6-7.2)
[2023-12-21 12:22] LABS: BILIRUBIN,DIRECT 0.2 mg/dL (0.0-0.2); CREATININE 1.1 mg/dL (0.55-1.3)
[2023-12-21 12:23] LABS: TOT PROT 6.5 g/dl (6.4-8.2)
[2023-12-21 12:24] LABS: BILIRUBIN,TOTAL 0.7 mg/dL (0.2-1)
[2023-12-21] MEDS: ACETAMINOPHEN 325 MG TABLET (FP) PO ONE (12:33)
[2023-12-21] MEDS: DEXAMETHASONE SODIUM PHOSPHATE 40 MG, DIPHENHYDRAMINE 50 MG in SODIUM CHLORIDE 100 ML IVPB ONE (12:34)
[2023-12-21] MEDS: DARATUMUMAB-HYALURONIDASE-FIHJ (FASPRO) 15 ML VIAL SQ ONE (13:12)
[2023-12-21 17:26] VITALS: RESP 18; TEMP 97.9
[2023-12-21] MEDS ORDERED: PORTA CATH FLUSH 10 ML IVPUSH PRN (17:30)
[2023-12-21 17:31] VITALS: BP 110/69; PULSE 81
[2023-12-22 18:08] LABS: FREE KAPPA,SERUM 3.1 mg/L (3.3-19.4); IG A QN SERUM. 36 mg/dL (61-437)
[2023-12-23 07:10] LABS: BETA-2-MICROGLOBULIN 2.5 mg/L (0.6-2.4)
[2023-12-24 08:12] LABS: FREE KAP CHN UR 2.67 mg/L (1.17-86.46); KAPPA LAMBDA RATIO URIN 2.67 (1.83-14.26)
== END 2023-12-21 13:50 | disposition home or self-care (01) ==
LOC: JONCCHEMO 10:46 → J7W 10:47 → JONCCHEMO 13:50
PROVIDERS: ATTEND Internal Medicine Hematology & Oncology
PROC: 3E01305 Introduction of Other Antineoplastic into Subcutaneous Tissue, Percutaneous Approach (ICD-10-PCS; principal; 2023-12-21)
PROC: 3E043GC Introduction of Other Therapeutic Substance into Central Vein, Percutaneous Approach (ICD-10-PCS; 2023-12-21)
PROC: 3E0437Z Introduction of Electrolytic and Water Balance Substance into Central Vein, Percutaneous Approach (ICD-10-PCS; 2023-12-21)
DX: Z51.11 Encounter for antineoplastic chemotherapy (principal); E85.81 Light chain (AL) amyloidosis
CPT/HCPCS: 36415; 80048; 80076; 82232; 82784; 83615; 83735; 83883; 84155; 84165; 84550; 85025; 86335; 96361; 96365; 96401; J9144

== ENCOUNTER 2024-01-18 10:08 | Day surgery (SDC) | payer OTHER ==
[2024-01-18 10:47] LABS: BASO % 1.4 % (0-2.0); EOS % 2.5 % (0-4.5); HEMATOCRIT 43.8 % (35.4-49); HEMOGLOBIN 14.6 GM/dL (11.7-16.9); LYMPH % 10.7 % (8-40); MCH 29.4 pg (25.7-33.7); MCHC 33.4 g/dl (32.0-35.9); MEAN CELL VOLUME 88.1 fl (80-96); MEAN PLT VOLUME 7.9 fl (7.5-11.1); MONO % 6.9 % (3.8-10.2); NEUT % 78.5 % (42.8-82.8); PLATELET COUNT 166 10^3/uL (134-434); RBC 4.97 M/mm3 (4.00-5.60); RDW 16.5 % (11.9-15.9)
[2024-01-18] MEDS: SODIUM CHLORIDE 250 ML IV ONE (10:49)
[2024-01-18 11:18] LABS: ALBUMIN 3.9 g/dl (3.4-5.0); CALCIUM 9.3 mg/dL (8.5-10.1); MAGNESIUM 2.1 mg/dL (1.8-2.4)
[2024-01-18 11:21] LABS: BILIRUBIN,DIRECT 0.1 mg/dL (0.0-0.2); CREATININE 1.3 mg/dL (0.55-1.3); URIC ACID 4.2 mg/dL (2.6-7.2)
[2024-01-18 11:23] LABS: BILIRUBIN,TOTAL 0.6 mg/dL (0.2-1); TOT PROT 6.2 g/dl (6.4-8.2)
[2024-01-18] MEDS: DEXAMETHASONE SODIUM PHOSPHATE 40 MG, DIPHENHYDRAMINE 50 MG in SODIUM CHLORIDE 100 ML IVPB ONE (11:37)
[2024-01-18] MEDS: ACETAMINOPHEN 325 MG TABLET (FP) PO ONE (11:37)
[2024-01-18] MEDS: DARATUMUMAB-HYALURONIDASE-FIHJ (FASPRO) 15 ML VIAL SQ ONE (12:30)
[2024-01-18] MEDS: PORTA CATH FLUSH 10 ML IVPUSH PRN (12:40)
[2024-01-18 15:52] VITALS: RESP 18; TEMP 97.8
[2024-01-18 15:57] VITALS: BP 119/64; PULSE 79
[2024-01-19 17:10] LABS: IG A QN SERUM. 38 mg/dL (61-437)
[2024-01-19 18:10] LABS: FREE KAPPA,SERUM 3.5 mg/L (3.3-19.4)
[2024-01-20 06:08] LABS: FREE KAP CHN UR 2.83 mg/L (1.17-86.46); KAPPA LAMBDA RATIO URIN 3.99 (1.83-14.26)
== END 2024-01-18 12:45 | disposition home or self-care (01) ==
LOC: JONCCHEMO 10:08 → J7W 10:11 → JONCCHEMO 12:45
PROVIDERS: ATTEND Internal Medicine Hematology & Oncology
PROC: 3E043GC Introduction of Other Therapeutic Substance into Central Vein, Percutaneous Approach (ICD-10-PCS; principal; 2024-01-18)
PROC: 3E01305 Introduction of Other Antineoplastic into Subcutaneous Tissue, Percutaneous Approach (ICD-10-PCS; 2024-01-18)
DX: E85.81 Light chain (AL) amyloidosis (principal)
CPT/HCPCS: 36415; 80048; 80076; 82232; 82784; 83615; 83735; 83883; 84155; 84165; 84550; 85025; 86335; 96365; 96401; J9144

== ENCOUNTER 2024-02-15 09:52 | Day surgery (SDC) | payer OTHER ==
[2024-02-15 10:24] LABS: BASO % 1.5 % (0-2.0); EOS % 1.9 % (0-4.5); HEMATOCRIT 44.8 % (35.4-49); HEMOGLOBIN 15.2 GM/dL (11.7-16.9); LYMPH % 12.8 % (8-40); MCHC 33.9 g/dl (32.0-35.9); MEAN CELL VOLUME 88.6 fl (80-96); NEUT % 74.8 % (42.8-82.8); PLATELET COUNT 158 10^3/uL (134-434); RBC 5.05 M/mm3 (4.00-5.60); RDW 16.2 % (11.9-15.9); WHITE BLOOD COUNT 6.4 K/mm3 (4.0-10.0)
[2024-02-15] MEDS: SODIUM CHLORIDE 250 ML IV ONE (10:38)
[2024-02-15 10:54] LABS: POTASSIUM 4.3 mmol/L (3.5-5.1)
[2024-02-15 10:56] LABS: CALCIUM 9.7 mg/dL (8.5-10.1)
[2024-02-15 10:57] LABS: BLOOD UREA NITROGEN 27.4 mg/dL (7-18); MAGNESIUM 2.2 mg/dL (1.8-2.4)
[2024-02-15 10:59] LABS: ALBUMIN 4.2 g/dl (3.4-5.0); URIC ACID 4.2 mg/dL (2.6-7.2)
[2024-02-15 11:00] LABS: CREATININE 1.2 mg/dL (0.55-1.3)
[2024-02-15 11:02] LABS: BILIRUBIN,DIRECT 0.2 mg/dL (0.0-0.2)
[2024-02-15 11:04] LABS: BILIRUBIN,TOTAL 0.7 mg/dL (0.2-1); TOT PROT 6.6 g/dl (6.4-8.2)
[2024-02-15] MEDS: DEXAMETHASONE SODIUM PHOSPHATE 40 MG, DIPHENHYDRAMINE 50 MG in SODIUM CHLORIDE 100 ML IVPB ONE (11:57)
[2024-02-15] MEDS: ACETAMINOPHEN 325 MG TABLET (FP) PO ONE (11:58)
[2024-02-15] MEDS: INSULIN (NOVOLOG) ASPART 100 UNITS/ML 10ML VIAL SQ ONE (12:49)
[2024-02-15] MEDS: DARATUMUMAB-HYALURONIDASE-FIHJ (FASPRO) 15 ML VIAL SQ ONE (12:56)
[2024-02-15] MEDS: PORTA CATH FLUSH 10 ML IVPUSH PRN (13:30)
[2024-02-15 16:20] VITALS: BP 130/81; PULSE 67; RESP 18; TEMP 98
[2024-02-16 17:07] LABS: FREE KAPPA,SERUM 3.6 mg/L (3.3-19.4)
[2024-02-16 18:08] LABS: IG A QN SERUM. 37 mg/dL (61-437)
[2024-02-17 07:10] LABS: BETA-2-MICROGLOBULIN 2.3 mg/L (0.6-2.4)
== END 2024-02-15 13:50 | disposition home or self-care (01) ==
LOC: JONCCHEMO 09:52 → J7W 09:56 → JONCCHEMO 13:30
PROVIDERS: ATTEND Internal Medicine Hematology & Oncology
PROC: 3E01305 Introduction of Other Antineoplastic into Subcutaneous Tissue, Percutaneous Approach (ICD-10-PCS; principal; 2024-02-15)
PROC: 3E013VG Introduction of Insulin into Subcutaneous Tissue, Percutaneous Approach (ICD-10-PCS; 2024-02-15)
PROC: 3E0437Z Introduction of Electrolytic and Water Balance Substance into Central Vein, Percutaneous Approach (ICD-10-PCS; 2024-02-15)
PROC: 3E0433Z Introduction of Anti-inflammatory into Central Vein, Percutaneous Approach (ICD-10-PCS; 2024-02-15)
DX: Z51.11 Encounter for antineoplastic chemotherapy (principal); E85.81 Light chain (AL) amyloidosis; E11.9 Type 2 diabetes mellitus without complications
CPT/HCPCS: 36415; 80048; 80076; 82232; 82784; 83615; 83735; 83883; 84155; 84165; 84550; 85025; 86335; 96360; 96365; 96368; 96372; 96401; J9144

== ENCOUNTER 2024-03-14 10:02 | Day surgery (SDC) | payer OTHER ==
[2024-03-14] MEDS: SODIUM CHLORIDE 250 ML IV ONE (10:15)
[2024-03-14 10:50] LABS: EOS % 2.3 % (0-4.5); HEMATOCRIT 45.7 % (35.4-49); HEMOGLOBIN 15.3 GM/dL (11.7-16.9); LYMPH % 11.7 % (8-40); MCH 29.9 pg (25.7-33.7); MCHC 33.4 g/dl (32.0-35.9); MEAN CELL VOLUME 89.4 fl (80-96); MEAN PLT VOLUME 8.3 fl (7.5-11.1); MONO % 9.3 % (3.8-10.2); NEUT % 75.7 % (42.8-82.8); PLATELET COUNT 155 10^3/uL (134-434); RBC 5.11 M/mm3 (4.00-5.60); RDW 16.4 % (11.9-15.9); WHITE BLOOD COUNT 6.5 K/mm3 (4.0-10.0)
[2024-03-14 11:03] LABS: CHLORIDE 105 mmol/L (98-107); POTASSIUM 4.1 mmol/L (3.5-5.1); SODIUM 140 mmol/L (136-145)
[2024-03-14 11:05] LABS: CALCIUM 9.6 mg/dL (8.5-10.1)
[2024-03-14 11:06] LABS: ALBUMIN 4.1 g/dl (3.4-5.0); ANION GAP 8 mmol/L (4-13); BLOOD UREA NITROGEN 26.6 mg/dL (7-18); CO2 27 mmol/L (21-32); GLUCOSE,RANDOM 191 mg/dL (74-106); MAGNESIUM 2.1 mg/dL (1.8-2.4)
[2024-03-14 11:08] LABS: BILIRUBIN,DIRECT 0.1 mg/dL (0.0-0.2); URIC ACID 4.1 mg/dL (2.6-7.2)
[2024-03-14 11:09] LABS: CREATININE 1.1 mg/dL (0.55-1.3); SGOT/AST 43 U/L (15-37); SGPT/ALT 60 U/L (13-61)
[2024-03-14 11:10] LABS: BILIRUBIN,TOTAL 0.7 mg/dL (0.2-1); TOT PROT 6.7 g/dl (6.4-8.2)
[2024-03-14 11:11] LABS: ALK PHOS 252 U/L (45-117)
[2024-03-14] MEDS: DEXAMETHASONE SODIUM PHOSPHATE 40 MG, DIPHENHYDRAMINE 50 MG in SODIUM CHLORIDE 100 ML IVPB ONE (12:04)
[2024-03-14] MEDS: ACETAMINOPHEN 325 MG TABLET (FP) PO ONE (12:05)
[2024-03-14] MEDS ORDERED: INSULIN ASPART SLIDING SCALE (NOVOLOG) 1 VIAL SQ ONE (12:07)
[2024-03-14] MEDS: INSULIN (NOVOLOG) ASPART 100 UNITS/ML 10ML VIAL SQ ONE (12:10)
[2024-03-14 12:16] LABS: LDH 182 U/L (87-246)
[2024-03-14] MEDS: DARATUMUMAB-HYALURONIDASE-FIHJ (FASPRO) 15 ML VIAL SQ ONE (12:56)
[2024-03-14] MEDS: PORTA CATH FLUSH 10 ML IVPUSH PRN (13:00)
[2024-03-14 16:52] VITALS: TEMP 98.2
[2024-03-14 17:01] VITALS: BP 118/71; PULSE 84; RESP 20
[2024-03-15 18:08] LABS: IG A QN SERUM. 41 mg/dL (61-437)
[2024-03-16 07:07] LABS: FREE KAP CHN UR 2.86 mg/L (1.17-86.46); KAPPA LAMBDA RATIO URIN 1.75 (1.83-14.26)
[2024-03-16 19:06] LABS: FREE KAPPA,SERUM 3.1 mg/L (3.3-19.4)
[2024-03-17 06:09] LABS: BETA-2-MICROGLOBULIN 2.3 mg/L (0.6-2.4)
== END 2024-03-14 13:15 | disposition home or self-care (01) ==
LOC: JONCCHEMO 10:02 → J7W 10:04 → JONCCHEMO 13:15
PROVIDERS: ATTEND Internal Medicine Hematology & Oncology
PROC: 3E043GC Introduction of Other Therapeutic Substance into Central Vein, Percutaneous Approach (ICD-10-PCS; principal; 2024-03-14)
DX: Z51.11 Encounter for antineoplastic chemotherapy (principal); E85.81 Light chain (AL) amyloidosis; E85.4 Organ-limited amyloidosis; E11.9 Type 2 diabetes mellitus without complications; Z79.4 Long term (current) use of insulin
CPT/HCPCS: 36415; 80048; 80076; 82232; 82784; 83615; 83735; 83883; 84155; 84165; 84550; 85025; 86335; 96365; 96372; 96401; J9144

== ENCOUNTER 2024-04-11 10:27 | Day surgery (SDC) | payer OTHER ==
[2024-04-11 10:57] LABS: BASO % 0.9 % (0-2.0); EOS % 1.3 % (0-4.5); HEMATOCRIT 46.7 % (35.4-49); HEMOGLOBIN 15.5 GM/dL (11.7-16.9); MCH 29.7 pg (25.7-33.7); MCHC 33.1 g/dl (32.0-35.9); MEAN CELL VOLUME 89.7 fl (80-96); MEAN PLT VOLUME 7.7 fl (7.5-11.1); MONO % 6.2 % (3.8-10.2); NEUT % 82.6 % (42.8-82.8); PLATELET COUNT 195 10^3/uL (134-434); RBC 5.21 M/mm3 (4.00-5.60); RDW 16.3 % (11.9-15.9); WHITE BLOOD COUNT 9.7 K/mm3 (4.0-10.0)
[2024-04-11] MEDS: SODIUM CHLORIDE 250 ML IV ONE (11:00)
[2024-04-11 11:15] LABS: CHLORIDE 107 mmol/L (98-107); SODIUM 141 mmol/L (136-145)
[2024-04-11 11:20] LABS: ANION GAP 4 mmol/L (4-13); CO2 30 mmol/L (21-32); MAGNESIUM 2.3 mg/dL (1.8-2.4)
[2024-04-11 11:21] LABS: ALBUMIN 4.1 g/dl (3.4-5.0); BLOOD UREA NITROGEN 22.8 mg/dL (7-18); CALCIUM 9.7 mg/dL (8.5-10.1); GLUCOSE,RANDOM 151 mg/dL (74-106)
[2024-04-11 11:22] LABS: URIC ACID 4.2 mg/dL (2.6-7.2)
[2024-04-11 11:23] LABS: BILIRUBIN,DIRECT 0.2 mg/dL (0.0-0.2); CREATININE 1.2 mg/dL (0.55-1.3); SGPT/ALT 62 U/L (13-61)
[2024-04-11 11:24] LABS: SGOT/AST 47 U/L (15-37)
[2024-04-11 11:25] LABS: TOT PROT 6.7 g/dl (6.4-8.2)
[2024-04-11 11:26] LABS: BILIRUBIN,TOTAL 0.8 mg/dL (0.2-1); LDH 176 U/L (87-246)
[2024-04-11 11:27] LABS: ALK PHOS 301 U/L (45-117)
[2024-04-11] MEDS: DEXAMETHASONE SODIUM PHOSPHATE 40 MG, DIPHENHYDRAMINE 50 MG in SODIUM CHLORIDE 100 ML IVPB ONE (11:32)
[2024-04-11] MEDS: ACETAMINOPHEN 325 MG TABLET (FP) PO ONE (11:32)
[2024-04-11] MEDS: DARATUMUMAB-HYALURONIDASE-FIHJ (FASPRO) 15 ML VIAL SQ ONE (12:55)
[2024-04-11] MEDS: PORTA CATH FLUSH 10 ML IVPUSH PRN (13:15)
[2024-04-11 15:00] VITALS: RESP 16; TEMP 98.2
[2024-04-11 15:03] VITALS: BP 121/72; PULSE 77
[2024-04-13 04:06] LABS: FREE KAP CHN UR 3.13 mg/L (1.17-86.46); KAPPA LAMBDA RATIO URIN 2.9 (1.83-14.26)
[2024-04-13 16:09] LABS: BETA-2-MICROGLOBULIN 2.8 mg/L (0.6-2.4)
[2024-04-13 18:09] LABS: IG A QN SERUM. 41 mg/dL (61-437)
== END 2024-04-11 13:15 | disposition home or self-care (01) ==
LOC: JONCCHEMO 10:27 → J7W 10:31 → JONCCHEMO 13:15
PROVIDERS: ATTEND Internal Medicine Hematology & Oncology
PROC: 3E01305 Introduction of Other Antineoplastic into Subcutaneous Tissue, Percutaneous Approach (ICD-10-PCS; principal; 2024-04-11)
PROC: 3E043GC Introduction of Other Therapeutic Substance into Central Vein, Percutaneous Approach (ICD-10-PCS; 2024-04-11)
DX: E85.4 Organ-limited amyloidosis (principal); E85.81 Light chain (AL) amyloidosis
CPT/HCPCS: 36415; 80048; 80076; 82232; 82784; 83615; 83735; 83883; 84155; 84165; 84550; 85025; 86335; 96365; 96401; J9144

== ENCOUNTER 2024-06-06 10:50 | Day surgery (SDC) | payer OTHER ==
[2024-06-06 11:26] LABS: BASO % 1.2 % (0-2.0); EOS % 1.7 % (0-4.5); HEMOGLOBIN 15.2 GM/dL (11.7-16.9); LYMPH % 13.8 % (8-40); MCH 30.4 pg (25.7-33.7); MCHC 33.9 g/dl (32.0-35.9); MEAN CELL VOLUME 89.9 fl (80-96); MEAN PLT VOLUME 7.8 fl (7.5-11.1); NEUT % 74.3 % (42.8-82.8); PLATELET COUNT 143 10^3/uL (134-434); RDW 15.7 % (11.9-15.9); WHITE BLOOD COUNT 6.3 K/mm3 (4.0-10.0)
[2024-06-06] MEDS: SODIUM CHLORIDE 250 ML IV ONE (11:35)
[2024-06-06 13:00] LABS: CHLORIDE 105 mmol/L (98-107); POTASSIUM 4.3 mmol/L (3.5-5.1); SODIUM 138 mmol/L (136-145)
[2024-06-06 13:07] LABS: CO2 26 mmol/L (21-32); MAGNESIUM 1.9 mg/dL (1.8-2.4)
[2024-06-06 13:08] LABS: ALBUMIN 4.2 g/dl (3.4-5.0); BLOOD UREA NITROGEN 27.1 mg/dL (7-18); CALCIUM 9.3 mg/dL (8.5-10.1); GLUCOSE,RANDOM 176 mg/dL (74-106)
[2024-06-06 13:10] LABS: ANION GAP 8 mmol/L (4-13); CREATININE 1.2 mg/dL (0.55-1.3); SGOT/AST 43 U/L (15-37); SGPT/ALT 60 U/L (13-61); URIC ACID 3.9 mg/dL (2.6-7.2)
[2024-06-06 13:11] LABS: BILIRUBIN,DIRECT 0.2 mg/dL (0.0-0.2)
[2024-06-06 13:12] LABS: TOT PROT 6.5 g/dl (6.4-8.2)
[2024-06-06 13:13] LABS: BILIRUBIN,TOTAL 1.2 mg/dL (0.2-1); LDH 170 U/L (87-246)
[2024-06-06 13:14] LABS: ALK PHOS 237 U/L (45-117)
[2024-06-06] MEDS: DEXAMETHASONE SODIUM PHOSPHATE 40 MG, DIPHENHYDRAMINE 50 MG in SODIUM CHLORIDE 100 ML IVPB ONE (13:20)
[2024-06-06] MEDS: ACETAMINOPHEN 325 MG TABLET (FP) PO ONE (13:20)
[2024-06-06] MEDS: INSULIN (NOVOLOG) ASPART 100 UNITS/ML 10ML VIAL SQ ONE (14:02)
[2024-06-06] MEDS: DARATUMUMAB-HYALURONIDASE-FIHJ (FASPRO) 15 ML VIAL SQ ONE (14:08)
[2024-06-06] MEDS: PORTA CATH FLUSH 10 ML IVPUSH PRN (14:20)
[2024-06-06 14:37] VITALS: RESP 18; TEMP 97.6
[2024-06-06 14:45] VITALS: BP 131/74; PULSE 78
[2024-06-09 04:06] LABS: FREE KAP CHN UR 0.58 mg/L (1.17-86.46); KAPPA LAMBDA RATIO URIN 0.69 (1.83-14.26)
== END 2024-06-06 14:45 | disposition home or self-care (01) ==
LOC: J7W 10:50 → JONCCHEMO 10:50
PROVIDERS: ATTEND Internal Medicine Hematology & Oncology
PROC: 3E0437Z Introduction of Electrolytic and Water Balance Substance into Central Vein, Percutaneous Approach (ICD-10-PCS; principal; 2024-06-06)
PROC: 3E0433Z Introduction of Anti-inflammatory into Central Vein, Percutaneous Approach (ICD-10-PCS; 2024-06-06)
PROC: 3E01305 Introduction of Other Antineoplastic into Subcutaneous Tissue, Percutaneous Approach (ICD-10-PCS; 2024-06-06)
PROC: 3E013VG Introduction of Insulin into Subcutaneous Tissue, Percutaneous Approach (ICD-10-PCS; 2024-06-06)
DX: Z51.11 Encounter for antineoplastic chemotherapy (principal); E85.81 Light chain (AL) amyloidosis; E85.4 Organ-limited amyloidosis; E11.9 Type 2 diabetes mellitus without complications
CPT/HCPCS: 36415; 80048; 80076; 82232; 82784; 83615; 83735; 83883; 84155; 84165; 84550; 85025; 86335; 96361; 96365; 96372; 96401; J9144

== ENCOUNTER 2024-07-04 10:21 | Day surgery (SDC) | payer OTHER ==
[2024-07-04 11:13] LABS: ABSOLUTE IMMATURE GRANULOCYTES 0.02 x10^3/uL (0.0-0.031); BASOPHILS # 0.09 x10^3/uL (0.01-0.08); EOSINOPHIL % 2.4 % (0.8-7.0); EOSINOPHILS # 0.16 x10^3/uL (0.04-0.54); HEMATOCRIT 44.2 % (40.1-51.0); HEMOGLOBIN 14.4 g/dL (13.7-17.5); MCHC 32.6 g/dl (32.3-36.5); MEAN CELL VOLUME 90.6 fl (79.0-92.2); MEAN PLT VOLUME 10.7 fl (9.4-12.4); MONOCYTE # 0.56 x10^3/uL (0.30-0.82); MONOCYTE % 8.4 % (5.3-12.2); PLATELET COUNT 153 x10^3/uL (163-337)
[2024-07-04] MEDS: SODIUM CHLORIDE 250 ML IV ONE (11:24)
[2024-07-04 11:44] LABS: CHLORIDE 104 mmol/L (98-107); POTASSIUM 4.2 mmol/L (3.5-5.1); SODIUM 142 mmol/L (136-145)
[2024-07-04 11:49] LABS: ANION GAP 13 mmol/L (4-13); CALCIUM 9.3 mg/dL (8.5-10.1); CO2 25 mmol/L (21-32); MAGNESIUM 2.3 mg/dL (1.8-2.4)
[2024-07-04 11:50] LABS: ALBUMIN 4.1 g/dl (3.4-5.0); BLOOD UREA NITROGEN 24.4 mg/dL (7-18); GLUCOSE,RANDOM 171 mg/dL (74-106)
[2024-07-04 11:52] LABS: BILIRUBIN,DIRECT 0.1 mg/dL (0.0-0.2); SGOT/AST 49 U/L (15-37); SGPT/ALT 60 U/L (13-61)
[2024-07-04 11:53] LABS: CREATININE 1.2 mg/dL (0.55-1.3)
[2024-07-04 11:54] LABS: TOT PROT 6.4 g/dl (6.4-8.2)
[2024-07-04 11:55] LABS: BILIRUBIN,TOTAL 0.7 mg/dL (0.2-1); LDH 193 U/L (87-246)
[2024-07-04 11:56] LABS: ALK PHOS 251 U/L (45-117); URIC ACID 4.4 mg/dL (2.6-7.2)
[2024-07-04] MEDS: DEXAMETHASONE SODIUM PHOSPHATE 40 MG, DIPHENHYDRAMINE 50 MG in SODIUM CHLORIDE 100 ML IVPB ONE (12:00)
[2024-07-04] MEDS: ACETAMINOPHEN 325 MG TABLET (FP) PO ONE (12:00)
[2024-07-04] MEDS: DARATUMUMAB-HYALURONIDASE-FIHJ (FASPRO) 15 ML VIAL SQ ONE (12:48)
[2024-07-04] MEDS: INSULIN (NOVOLOG) ASPART 100 UNITS/ML 10ML VIAL SQ ONE (12:52)
[2024-07-04] MEDS: PORTA CATH FLUSH 10 ML IVPUSH PRN (13:00)
[2024-07-04 13:04] VITALS: RESP 18; TEMP 97.8
[2024-07-04 14:12] VITALS: BP 134/75; PULSE 86
[2024-07-05 18:06] LABS: IG A QN SERUM. 38 mg/dL (61-437)
[2024-07-06 06:06] LABS: FREE KAP CHN UR 2.66 mg/L (1.17-86.46); KAPPA LAMBDA RATIO URIN 3.09 (1.83-14.26)
[2024-07-06 16:10] LABS: BETA-2-MICROGLOBULIN 2.4 mg/L (0.6-2.4)
== END 2024-07-04 13:20 | disposition home or self-care (01) ==
LOC: JONCCHEMO 10:21 → J7W 10:27 → JONCCHEMO 13:20
PROVIDERS: ATTEND Internal Medicine Hematology & Oncology
PROC: 3E01305 Introduction of Other Antineoplastic into Subcutaneous Tissue, Percutaneous Approach (ICD-10-PCS; principal; 2024-07-04)
PROC: 3E013VG Introduction of Insulin into Subcutaneous Tissue, Percutaneous Approach (ICD-10-PCS; 2024-07-04)
DX: Z51.11 Encounter for antineoplastic chemotherapy (principal); E85.81 Light chain (AL) amyloidosis; D50.9 Iron deficiency anemia, unspecified; E11.9 Type 2 diabetes mellitus without complications
CPT/HCPCS: 36415; 80048; 80076; 82232; 82784; 83615; 83735; 83883; 84155; 84165; 84550; 85025; 96361; 96365; 96368; 96372; J9144

== ENCOUNTER 2024-08-01 10:28 | Day surgery (SDC) | payer OTHER ==
[2024-08-01 11:07] VITALS: TEMP 97.6
[2024-08-01] MEDS: SODIUM CHLORIDE 250 ML IV ONE (11:27)
[2024-08-01 11:28] LABS: ABSOLUTE IMMATURE GRANULOCYTES 0.02 x10^3/uL (0.0-0.031); BASOPHILS # 0.08 x10^3/uL (0.01-0.08); EOSINOPHIL % 1.8 % (0.8-7.0); EOSINOPHILS # 0.13 x10^3/uL (0.04-0.54); HEMATOCRIT 46.8 % (40.1-51.0); HEMOGLOBIN 15.4 g/dL (13.7-17.5); MCHC 32.9 g/dl (32.3-36.5); MEAN CELL VOLUME 90.7 fl (79.0-92.2); MEAN PLT VOLUME 10.3 fl (9.4-12.4); MONOCYTE # 0.56 x10^3/uL (0.30-0.82); MONOCYTE % 7.7 % (5.3-12.2); PLATELET COUNT 151 x10^3/uL (163-337); RDW 14.6 % (12.2-16.4)
[2024-08-01 11:56] LABS: CHLORIDE 107 mmol/L (98-107); POTASSIUM 4.2 mmol/L (3.5-5.1); SODIUM 139 mmol/L (136-145)
[2024-08-01 11:58] LABS: CALCIUM 9.6 mg/dL (8.5-10.1)
[2024-08-01 11:59] LABS: ALBUMIN 4.1 g/dl (3.4-5.0); ANION GAP 4 mmol/L (4-13); BLOOD UREA NITROGEN 27.8 mg/dL (7-18); CO2 28 mmol/L (21-32); GLUCOSE,RANDOM 178 mg/dL (74-106); MAGNESIUM 2.1 mg/dL (1.8-2.4)
[2024-08-01 12:02] LABS: BILIRUBIN,DIRECT 0.1 mg/dL (0.0-0.2); CREATININE 1.1 mg/dL (0.55-1.3); SGOT/AST 38 U/L (15-37); SGPT/ALT 55 U/L (13-61)
[2024-08-01 12:03] LABS: BILIRUBIN,TOTAL 0.5 mg/dL (0.2-1); TOT PROT 6.7 g/dl (6.4-8.2)
[2024-08-01 12:04] LABS: ALK PHOS 248 U/L (45-117)
[2024-08-01] MEDS: DEXAMETHASONE SODIUM PHOSPHATE 40 MG, DIPHENHYDRAMINE 50 MG in SODIUM CHLORIDE 100 ML IVPB ONE (12:20)
[2024-08-01] MEDS: ACETAMINOPHEN 325 MG TABLET (FP) PO ONE (12:21)
[2024-08-01 12:56] LABS: LDH 183 U/L (87-246)
[2024-08-01] MEDS: DARATUMUMAB-HYALURONIDASE-FIHJ (FASPRO) 15 ML VIAL SQ ONE (13:23)
[2024-08-01] MEDS: PORTA CATH FLUSH 10 ML IVPUSH PRN (13:30)
[2024-08-01 14:42] VITALS: BP 128/69; PULSE 73; RESP 20
[2024-08-02 18:06] LABS: FREE KAPPA,SERUM 3.2 mg/L (3.3-19.4); IG A QN SERUM. 36 mg/dL (61-437)
[2024-08-03 07:06] LABS: FREE KAP CHN UR 2.87 mg/L (1.17-86.46); KAPPA LAMBDA RATIO URIN 2.93 (1.83-14.26)
[2024-08-03 15:06] LABS: BETA-2-MICROGLOBULIN 1.9 mg/L (0.6-2.4)
== END 2024-08-01 13:55 | disposition home or self-care (01) ==
LOC: J7W 10:28 → JONCCHEMO 10:28
PROVIDERS: ATTEND Internal Medicine Hematology & Oncology
PROC: 3E043GC Introduction of Other Therapeutic Substance into Central Vein, Percutaneous Approach (ICD-10-PCS; principal; 2024-08-01)
DX: Z51.11 Encounter for antineoplastic chemotherapy (principal); D46.9 Myelodysplastic syndrome, unspecified
CPT/HCPCS: 36415; 80048; 80076; 82232; 82784; 83615; 83735; 83883; 84153; 84155; 84165; 84550; 85025; 86335; 96365; 96401; J9144

== ENCOUNTER 2024-09-05 11:35 | Day surgery (SDC) | payer OTHER ==
[2024-09-05] MEDS: SODIUM CHLORIDE 250 ML IV ONE (12:15)
[2024-09-05 12:16] LABS: ABSOLUTE IMMATURE GRANULOCYTES 0.01 x10^3/uL (0.0-0.031); BASOPHILS # 0.09 x10^3/uL (0.01-0.08); EOSINOPHIL % 1.1 % (0.8-7.0); EOSINOPHILS # 0.09 x10^3/uL (0.04-0.54); HEMOGLOBIN 15.2 g/dL (13.7-17.5); MEAN CELL VOLUME 90.7 fl (79.0-92.2); MEAN PLT VOLUME 10.4 fl (9.4-12.4); MONOCYTE # 0.66 x10^3/uL (0.30-0.82); MONOCYTE % 7.8 % (5.3-12.2); PLATELET COUNT 145 x10^3/uL (163-337); RDW 14.5 % (12.2-16.4)
[2024-09-05 12:35] LABS: CHLORIDE 107 mmol/L (98-107); POTASSIUM 4.4 mmol/L (3.5-5.1); SODIUM 141 mmol/L (136-145)
[2024-09-05 12:37] LABS: CALCIUM 9.5 mg/dL (8.5-10.1)
[2024-09-05 12:38] LABS: ANION GAP 6 mmol/L (4-13); BLOOD UREA NITROGEN 26.4 mg/dL (7-18); CO2 28 mmol/L (21-32); GLUCOSE,RANDOM 162 mg/dL (74-106); MAGNESIUM 2.2 mg/dL (1.8-2.4)
[2024-09-05 12:40] LABS: BILIRUBIN,DIRECT 0.2 mg/dL (0.0-0.2); SGOT/AST 48 U/L (15-37); SGPT/ALT 61 U/L (13-61); URIC ACID 4.3 mg/dL (2.6-7.2)
[2024-09-05 12:41] LABS: CREATININE 1.2 mg/dL (0.55-1.3)
[2024-09-05 12:42] LABS: BILIRUBIN,TOTAL 0.9 mg/dL (0.2-1); TOT PROT 6.4 g/dl (6.4-8.2)
[2024-09-05 12:43] LABS: ALK PHOS 235 U/L (45-117)
[2024-09-05 12:45] LABS: LDH 186 U/L (87-246)
[2024-09-05] MEDS: DEXAMETHASONE SODIUM PHOSPHATE 40 MG, DIPHENHYDRAMINE 50 MG in SODIUM CHLORIDE 100 ML IVPB ONE (13:32)
[2024-09-05] MEDS: ACETAMINOPHEN 325 MG TABLET (FP) PO ONE (13:35)
[2024-09-05] MEDS: DARATUMUMAB-HYALURONIDASE-FIHJ (FASPRO) 15 ML VIAL SQ ONE (14:37)
[2024-09-05] MEDS: PORTA CATH FLUSH 10 ML IVPUSH PRN (14:45)
[2024-09-05 16:19] VITALS: RESP 18; TEMP 97.9
[2024-09-05 16:32] VITALS: BP 127/73; PULSE 77
[2024-09-06 19:10] LABS: FREE KAPPA,SERUM 3.9 mg/L (3.3-19.4)
[2024-09-06 21:10] LABS: IG A QN SERUM. 33 mg/dL (61-437)
[2024-09-08 07:06] LABS: BETA-2-MICROGLOBULIN 2.5 mg/L (0.6-2.4); FREE KAP CHN UR 3.38 mg/L (1.17-86.46)
== END 2024-09-05 15:00 | disposition home or self-care (01) ==
LOC: JONCCHEMO 11:35 → J7W 12:57 → JONCCHEMO 15:00
PROVIDERS: ATTEND Internal Medicine Hematology & Oncology
DX: E85.4 Organ-limited amyloidosis (principal); I43 Cardiomyopathy in diseases classified elsewhere
CPT/HCPCS: 36415; 80048; 80076; 82232; 82784; 83615; 83735; 83883; 84153; 84155; 84165; 84550; 85025; 86335; 96401; J9144

== ENCOUNTER 2024-10-10 16:18 | Emergency (ER) | payer OTHER ==
[2024-10-10 17:00] VITALS: RESP 18; BMI 24.2
[2024-10-10] MEDS ORDERED: ACETAMINOPHEN INJECTION 100 ML ONE (18:45)
[2024-10-10] MEDS: ACETAMINOPHEN 1000 MG/100 ML BAG IVPB ONE (19:07)
[2024-10-10] MEDS: SODIUM CHLORIDE 0.9% 500 ML INFUS.BAG IV ONE (19:07)
[2024-10-10 19:13] LABS: ABSOLUTE IMMATURE GRANULOCYTES 0.07 x10^3/uL (0.0-0.031); BASOPHILS # 0.07 x10^3/uL (0.01-0.08); EOSINOPHIL % 0.7 % (0.8-7.0); EOSINOPHILS # 0.09 x10^3/uL (0.04-0.54); MCHC 32.6 g/dl (32.3-36.5); MEAN CELL VOLUME 90.8 fl (79.0-92.2); MEAN PLT VOLUME 10.4 fl (9.4-12.4); MONOCYTE # 1.09 x10^3/uL (0.30-0.82); MONOCYTE % 8.0 % (5.3-12.2); RDW 14.6 % (12.2-16.4)
[2024-10-10 19:14] LABS: BG HCT 50.0 % (35.4-49); VENOUS BASE EXCESS 2.2 mmol/L (-2-2); VENOUS O2 SATURATION 75.1 % (70-80); VENOUS PCO2 43.6 mmHg (38-52); VENOUS PH 7.414 (7.310-7.410)
[2024-10-10 19:18] LABS: INR 1.16 (0.83-1.09); PROTHROMBIN TIME (PATIENT) 12.8 SEC (9.7-13.0)
[2024-10-10 19:20] LABS: ACTIVATED PTT 36.0 SECONDS (25.2-36.5)
[2024-10-10 19:40] LABS: CO2 26.0 mmol/L (21-32)
[2024-10-10 19:41] LABS: GLUCOSE,RANDOM 122.0 mg/dL (74-106)
[2024-10-10 19:43] LABS: CREATININE 1.2 mg/dL (0.55-1.3); SGOT/AST 56.0 U/L (15-37); SGPT/ALT 85.0 U/L (13-61)
[2024-10-10 19:45] LABS: TOT PROT 6.6 g/dl (6.4-8.2)
[2024-10-10 19:46] LABS: ALK PHOS 267.0 U/L (45-117)
[2024-10-10 20:30] VITALS: BP 144/61; PULSE 90; TEMP 98.3
[2024-10-10 20:50] LABS: HCV DIAGNOSTIC IN-HOUSE W/RFLX NON-REACTIVE (NONREACTIVE)
[2024-10-10 20:51] LABS: HIV INTERPRETATION NEGATIVE (NEGATIVE)
== END 2024-10-10 20:33 | disposition home or self-care (01) ==
LOC: JER 16:18
PROC: 3E033NZ Introduction of Analgesics, Hypnotics, Sedatives into Peripheral Vein, Percutaneous Approach (ICD-10-PCS; principal; 2024-10-10)
DX: R07.89 Other chest pain (principal); R50.9 Fever, unspecified; R05.9 Cough, unspecified; R09.81 Nasal congestion; R06.00 Dyspnea, unspecified; J02.9 Acute pharyngitis, unspecified
CPT/HCPCS: 36415; 71045-TC-FY; 80053; 82803; 83605; 83735; 84484; 85025; 85610; 85730; 86803; 86850; 86870; 86880; 86900; 86901; 86902; 87389; 87637-QW; 93005; 93010; 99285-25

== ENCOUNTER 2024-10-28 06:16 | Day surgery (SDC) | payer OTHER ==
[2024-10-28 11:31] VITALS: BMI 28.4
[2024-10-28 12:57] VITALS: RESP 17
[2024-10-28 13:03] VITALS: BP 128/69; PULSE 83; TEMP 98
== END 2024-10-28 13:20 | disposition home or self-care (01) ==
LOC: JASU-ENDO 06:16
PROVIDERS: ATTEND Internal Medicine Gastroenterology
PROC: 0DJD8ZZ Inspection of Lower Intestinal Tract, Via Natural or Artificial Opening Endoscopic (ICD-10-PCS; principal; 2024-10-28 12:00)
DX: Z12.11 Encounter for screening for malignant neoplasm of colon (principal); K57.30 Diverticulosis of large intestine without perforation or abscess without bleeding; Z86.0101 Personal history of adenomatous and serrated colon polyps
CPT/HCPCS: 82962